=== PATIENT | male | born 1950 | race Caucasian/White ===

== ENCOUNTER 2019-06-06 08:47 | Outpatient (CLI) | payer MEDICARE, OTHER, SELFPAY ==
--- NOTE | 2019-06-06 | ECHO_ITS ---
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 Summary 1. Left ventricular chamber dimension is normal. 2. Left ventricular systolic function is normal, estimated at 60-65%. 3. The left ventricular diastolic function is grade I diastolic dysfunction. 4. E/e' 6 is not elevated. 5. Global longitudinal strain is normal at -17.9%. 6. There is mild aortic valve sclerosis. 7. There is mild aortic valve regurgitation. 8. Right ventricular systolic pressure is not calculated due to an inadequate TR jet. 9. There is trace tricuspid valve regurgitation. 10. Dilated inferior vena cava with >50% collapse upon inspiration consistent with elevated right atrial pressure, 10 mmHg. Left Ventricle E/e' 6 is not elevated. Global longitudinal strain is normal at -17.9%. Left ventricular chamber dimension is normal. Left ventricular systolic function is normal, estimated at 60-65%. The left ventricular diastolic function is grade I diastolic dysfunction. Right Ventricle Right ventricular chamber dimension is normal. Right ventricular systolic function is normal. Left Atria Left atrial chamber dimension is normal. Right Atria Right atrial chamber dimension is normal. Aortic Valve The aortic valve is trileaflet. There is mild aortic valve sclerosis. There is no aortic valve stenosis. There is mild aortic valve regurgitation. Pulmonic Valve There is no pulmonic regurgitation. Mitral Valve There is no mitral valve stenosis. There is no mitral valve regurgitation. Tricuspid Valve Right ventricular systolic pressure is not calculated due to an inadequate TR jet. There is trace tricuspid valve regurgitation. Pericardium/Pleural There is trivial pericardial effusion. Inferior Vena Cava Dilated inferior vena cava with >50% collapse upon inspiration consistent with elevated right atrial pressure, 10 mmHg. Aorta The aortic root size at the sinus of Valsalva is normal. Left Ventricular Outflow Tract Name Value Normal LVOT 2D LVOT Diameter 2.1 cm LVOT Doppler LVOT Peak Gradient 5 mmHg LVOT Mean Gradient 3 mmHg LVOT VTI 28 cm LVOT VTI/AV VTI Ratio 0.9 LVOT Stroke Volume 99 ml LVOT CO 6.3 l/min LVOT CI 2.9 l/min/m2 Pulmonic Valve Name
== END 2019-06-06 08:48 | disposition home or self-care (01) ==
LOC: ANHCARD 08:51
PROVIDERS: PCP Internal Medicine; Visit Provider Internal Medicine
DX: I10 Essential (primary) hypertension (principal); I34.0 Nonrheumatic mitral (valve) insufficiency
CPT/HCPCS: 93306

== ENCOUNTER 2020-09-29 09:43 | Outpatient (CLI) | payer MEDICARE, SELFPAY ==
--- NOTE | ~2020-09-29 | US_ITS ---
EXAMINATION: US carotid duplex BI DATE: 09/29/2020 10:21 INDICATION: Transient ischemic attack. TECHNIQUE: Grayscale, color Doppler, and pulsed Doppler images of the cervical carotid arteries were obtained. The degree of vessel stenosis is placed in one of the following categories: normal, <50%, 5 0-69%, >=70% but less than near-occlusion, near-occlusion, or total occlusion. Note that percent sten osis relative to normal distal artery lumen diameter is indirectly measured from velocity measurement s as described by Abdoulaye, et al. Radiology 2003; 229:340-346. COMPARISON: Ultrasound 10/02/2016 FINDINGS: RIGHT: The right common carotid artery (CCA) peak systolic velocity (PSV) is 102 cm/s. The right internal ca rotid artery (ICA) PSV is 43 cm/s. The right ICA end-diastolic velocity (EDV) is 10 cm/s. The right I CA/CCA PSV ratio is 0.4. Grayscale and color Doppler images yield an estimate of <50% diameter reduct ion from plaque in the ICA. There is antegrade flow in the right vertebral artery. LEFT: The left CCA PSV is 84 cm/s. The left ICA PSV is 70 cm/s. The left ICA EDV is 15 cm/s. The left ICA/C CA PSV ratio is 0.8. Grayscale and color Doppler images yield an estimate of <50% diameter reduction from plaque in the ICA. There is antegrade flow in the left vertebral artery. IMPRESSION: 1. <50% stenosis in the right internal carotid artery. 2. <50% stenosis in the left internal carotid artery. Reviewed, dictated and finalized at location A.
== END 2020-09-29 09:44 | disposition home or self-care (01) ==
PROVIDERS: PCP Internal Medicine; Visit Provider Internal Medicine
DX: G45.9 Transient cerebral ischemic attack, unspecified (principal); I65.23 Occlusion and stenosis of bilateral carotid arteries
CPT/HCPCS: 93880

== ENCOUNTER 2022-11-08 13:42 | Emergency (ER) | payer MEDICARE, SELFPAY ==
--- NOTE | ~2022-11-08 | CT_ITS ---
EXAMINATION: CT abdomen pelvis wo con DATE: 11/08/2022 16:04 INDICATION: Left lower quadrant abdominal pain, dysuria and hematuria TECHNIQUE: Computed tomography (CT) of the abdomen and pelvis was performed without intravenous contr ast. Automated exposure control and iterative reconstruction technique were employed. The dose-length product was 634.31 mGy-cm. COMPARISON: None FINDINGS: Mild atelectasis/scarring at the bilateral lower lobes. No pleural effusion. Heart size is normal. At herosclerotic coronary artery calcific lesion. Aortic valve calcification. Small pericardial effusion . Diffuse hepatic steatosis. Gallbladder, spleen, pancreas and bilateral adrenal glands are normal. T here are parapelvic cysts at the bilateral kidneys. 6 x 3 mm stone in the distal left ureter 1.5 cm f rom the ureterovesicular junction with no hydroureter or hydronephrosis. Additional 1 mm stone at the lower pole of the left kidney. 1.1 cm exophytic soft tissue density lesion at the periphery of the l ower pole the left kidney. There are few scattered colonic diverticula without adjacent inflammatory stranding to suggest diverticular colitis. Small bowel and appendix are normal. Bladder is normal. A few coarse calcifications in the mildly enlarged prostate which measures 4.7 x 4.3 cm. Moderate-sized bilateral fat-containing inguinal hernias. No free intraperitoneal gas or fluid. No pathologically e nlarged abdominal or pelvic lymphadenopathy. Mild lumbar dextrocurvature with moderate spondylosis. IMPRESSION: 1. 6 x 3 mm distal left ureteral stone without hydroureteronephrosis. 2. Indeterminate 1.1 cm soft tissue density exophytic lesion at the lower pole the left kidney which could represent either a complex proteinaceous/hemorrhagic cyst or solid renal cell carcinoma. Recomm end further evaluation with pre and postcontrast MRI or CT. Reviewed, dictated and finalized at location A. IMPRESSION: 1. 6 x 3 mm distal left ureteral stone without hydroureteronephrosis. 2. Indeterminate 1.1 cm soft tissue density exophytic lesion at the lower pole the left kidney which could represent either a complex proteinaceous/hemorrhagi c cyst or solid renal cell carcinoma. Recommend further evaluation with pre and postcontrast MRI or CT.
--- NOTE | ~2022-11-08 | XR_ITS ---
EXAMINATION: XR abdomen/kub 1V DATE: 11/08/2022 16:32 INDICATION: Distal left ureteral stone TECHNIQUE: A supine view of the abdomen on 2 radiographs was obtained. COMPARISON: CT dated 11/08/2022 FINDINGS: The stone at the distal left ureter is clearly visualized amongst a few additional atherosclerotic ca lcifications and phleboliths in the pelvis. Normal bowel gas pattern. Moderate lower lumbar spondylos is. Sclerotic lesion in the right innominate bone which on prior CT appears to demonstrate ring and a rc-like configuration to the sclerosis most consistent with an enchondroma. IMPRESSION: 1. Distal left ureteral stone which has been indicated on the images with an arrow. Reviewed, dictated and finalized at location A. IMPRESSION: 1. Distal left ureteral stone which has been indicated on the images with an ar row.
[2022-11-08 13:46] VITALS: BP 162/83; PULSE 75; RESP 16; TEMP 36.5; O2SAT 98
[2022-11-08 14:06] LABS: Basophils Percent Auto 0.4 % (0.2-1.2); Eosinophils Absolute Auto 0.2 K/mm3 (0-0.3); Eosinophils Percent Auto 2.8 % (0-4.4); Hematocrit 45.1 % (42.0-52.0); Hemoglobin 14.9 g/dL (14.0-18.0); Immature Granulocyte Absolute 0.02 K/mm3 (0.00-0.031); Immature Granulocyte Percent A 0.2 % (0-0.5); Lymphocytes Absolute Auto 1.71 K/mm3 (0.9-3.2); Lymphocytes Percent Auto 20.9 % (18.3-44.2); Mean Corpuscular Hemoglobin 29.7 pg (26-34); Mean Platelet Volume 11.5 fl (7.4-10.4); Monocytes Absolute Auto 0.8 K/mm3 (0.1-0.6); Monocytes Percent Auto 10.1 % (2.6-8.5); Neutrophils Absolute Auto 5.4 K/mm3 (1.3-6.7); Neutrophils Percent Auto 65.6 % (45.5-73.1); Platelet Count Result 239 k/mm3 (150-375); Red Blood Count 5.01 M/mm3 (4.6-6.20); Red Cell Distribution Width 12.7 % (11.5-14.5); White Blood Count 8.2 K/mm3 (4.5-10.0)
[2022-11-08 14:17] LABS: Alanine Aminotransferase 35 U/L (6-50); Albumin Level 4.3 g/dL (3.5-5.1); Alkaline Phosphatase 64 U/L (38-126); Anion Gap 6 mmol/L (8-16); Aspartate Amino Transferase 26 U/L (17-59); Bilirubin,Total 0.8 mg/dL (0.2-1.3); Blood Urea Nitrogen 16 mg/dL (9-20); Calcium 9.4 mg/dL (8.4-10.2); Carbon Dioxide 26 mmol/L (22-30); Chloride 107 mmol/L (98-107); Estimated Glomerular Filt Rate > 60; Glucose 115 mg/dL (65-110); Lipase 147 U/L (23-300); Potassium 3.8 mmol/L (3.4-5.0); Sodium 139 mmol/L (137-145)
[2022-11-08 14:45] LABS: Appearance Urine Clear (Clear); Bacteria Urine None Seen /hpf; Bilirubin Urine Negative (Negative); Blood Urine 3+ (Negative); Color Urine Yellow (Yellow); Glucose Urine UA Negative (Negative); Ketones Urine Negative (Negative); Leukocyte Esterase Ur Negative LEU/UL (Negative); Nitrate Urine Negative (Negative); Protein Urine 1+ mg/dL (Negative); RBC Urine >100 /hpf (0-2); Specific Grav Ur 1.016 (1.001-1.035); Squamous Epithelial Cell Urine None seen /hpf (Few); Urobilinogen Urine 0.2 mg/dL (<2.0); WBC Urine 0-5 /hpf; pH Urine 5.5 (5.0-9.0)
[2022-11-08 14:49] LABS: Add Urine Microscopic? YES
[2022-11-08 15:05] VITALS: BP 152/70; PULSE 64; RESP 19; TEMP 36.8; O2SAT 98
--- NOTE | 2022-11-08 16:03 | ED.ABDPAIN ---
HPI - Abdominal Pain General Chief Complaint: Abdominal Pain Stated Complaint: LLQ pain/vomiting Time Seen by Provider: 11/08/22 15:04 Source: patient Mode of arrival: EMS Limitations: no limitations History of Present Illness HPI narrative: Patient is a 72-year-old male who presents to the ED via EMS with report of left lower quadrant abdominal pain. Patient reports pain began suddenly around 1 PM today. Pain was present in his left lower abdomen. No radiation. He thought he needed to urinate or have a bowel movement at that time. He states he felt the urge to urinate, but was only able to dribble out a small amount. Denies dysuria or hematuria. He was able to have a bowel movement, denies rectal bleeding or melena. Pain became more severe and patient began vomiting at which point EMS was called. Patient states pain has improved somewhat. He denies any persistent nausea. Denies any fevers. Denies history of diverticulitis or kidney stones. Patient has never had pain like this before. He did not take anything for pain prior to arrival. Related Data Home Medications Medication Instructions Recorded Confirmed aspirin 81 mg tablet,delayed 81 mg PO DAILY 02/11/19 06/28/22 release chondroitin sulfate A 250 mg mg PO 02/11/19 06/28/22 capsule montelukast 10 mg tablet 10 mg PO DAILY 02/11/19 06/28/22 multivitamin (Multiple Vitamins 1 tablet PO DAILY 02/11/19 06/28/22 tablet) hydrochlorothiazide 12.5 mg capsule 12.5 mg PO DAILY 06/28/22 06/28/22 tamsulosin 0.4 mg capsule 0.4 mg PO DAILY 06/28/22 06/28/22 Allergies Allergy/AdvReac Type Severity Reaction Status Date / Time No Known Allergies Allergy Unverified 06/28/22 10:29 Review of Systems Review of Systems: CONSTITUTIONAL: Denies fever, chills, or sweats. CARDIOVASCULAR: Denies chest pain. RESPIRATORY: Denies dyspnea. GASTROINTESTINAL: See HPI. GENITOURINARY: See HPI. SKIN: Denies rash or itching. MUSCULOSKELETAL: Denies back pain, joint pain, or myalgia. NEUROLOGIC: Denies headache, numbness, or weakness. All systems reviewed & are unremarkable except as noted in HPI and below PMFSH Surgical History Surgical History History of removal of cyst History of surgery on lower extremity right fib/tib surgery S/P nasal surgery septum surgery Family History Family History Mother Cerebrovascular accident, Onset Age: 95 Family history of chronic obstructive pulmonary disease, Onset Age: 95 Family history of emphysema, Onset Age: 95 Sibling Family history of malignant neoplasm of breast Father Family history of coronary artery disease, Onset Age: 82 Social History Social History Smoking status: Never smoker Alcohol intake: current Exam Narrative: GENERAL: Well appearing, well-nourished, non-toxic, in no acute distress. HEAD: Normocephalic, atraumatic. NECK: Supple. No adenopathy, no masses. RESPIRATORY: Airway patent, respirations nonlabored. Clear to auscultation bilaterally, no rales, rhonchi, wheezing. CARDIOVASCULAR: Regular rate and rhythm without murmurs, rubs, or gallops. Radial pulses 2+ and equal bilaterally. ABDOMINAL: Soft, mild tenderness in left lower quadrant, nondistended, no hepatosplenomegaly. Normoactive BS. No CVA tenderness to percussion. MUSCULOSKELETAL: Moves all extremities. Strength/ROM intact without gross deformities. SKIN: Warm, dry, normal color. No rashes. NEURO: A&O X3. Speech clear. Cranial nerves II-XII grossly intact. Steady gait. No ataxic movements. PSYCHIATRIC: Appropriate mood and affect. Normal interaction. Course Vital Signs Vital signs: Vital Signs Temperature 97.7 F 11/08/22 13:46 Pulse Rate 75 11/08/22 13:46 Respiratory Rate 16 11/08/22 13:46 Blood Pressure 162/83 H
[2022-11-08 17:01] VITALS: BP 154/84; PULSE 83; RESP 15; TEMP 36.6; O2SAT 98
== END 2022-11-08 17:32 | disposition home or self-care (01) ==
PROVIDERS: Emergency Medicine; Emergency Provider Physician Assistant; PCP Internal Medicine
DX: N20.0 Calculus of kidney (principal); N28.9 Disorder of kidney and ureter, unspecified
CPT/HCPCS: 36415; 74018; 74176; 80053; 81001; 83690; 85025; 99284

== ENCOUNTER 2022-11-09 04:14 | Emergency (ER) | payer MEDICARE, SELFPAY ==
[2022-11-09 04:18] VITALS: BP 200/109; PULSE 69; RESP 18; TEMP 35.9; O2SAT 97
--- NOTE | 2022-11-09 04:31 | ED.ABDPAIN ---
HPI - Abdominal Pain General Chief Complaint: Abdominal Pain Stated Complaint: kidney stones/abd pain Time Seen by Provider: 11/09/22 04:19 History of Present Illness HPI narrative: This is a 72-year-old male, who returns to the emergency department complaining of left lower quadrant abdominal pain attributed to kidney stone. Patient states he was seen earlier yesterday, and was diagnosed with a 6.3 mm distal ureteral stone. The patient was discharged with oral pain medications and Zofran. This evening approximately 2 hours ago, he woke with 10/10 left lower quadrant abdominal pain, described as dull and intermittently sharp, radiating to the back and groin. He also complains of nausea and nonbloody vomiting. He states he took a [place] 2 hours ago but has not had relief. He has no other complaints at this time. Related Data Home Medications Medication Instructions Recorded Confirmed aspirin 81 mg tablet,delayed 81 mg PO DAILY 02/11/19 06/28/22 release chondroitin sulfate A 250 mg mg PO 02/11/19 06/28/22 capsule montelukast 10 mg tablet 10 mg PO DAILY 02/11/19 06/28/22 multivitamin (Multiple Vitamins 1 tablet PO DAILY 02/11/19 06/28/22 tablet) hydrochlorothiazide 12.5 mg capsule 12.5 mg PO DAILY 06/28/22 06/28/22 tamsulosin 0.4 mg capsule 0.4 mg PO DAILY 06/28/22 06/28/22 Allergies Allergy/AdvReac Type Severity Reaction Status Date / Time No Known Allergies Allergy Unverified 06/28/22 10:29 Review of Systems Review of Systems: CONSTITUTIONAL: Denies fever, chills, or sweats. CARDIOVASCULAR: Denies chest pain, palpitations, or edema. RESPIRATORY: Denies cough or dyspnea. GASTROINTESTINAL: Lower quadrant abdominal pain radiating to the back and groin, nausea and nonbloody vomiting denies diarrhea. GENITOURINARY: Denies dysuria or hematuria. SKIN: Denies rash or itching. MUSCULOSKELETAL: Denies back pain, joint pain, or myalgia. NEUROLOGIC: Denies headache, numbness, dizziness, or weakness. PSYCHIATRIC: Denies anxiety or depression. [facility] Past Medical History Medical History (Updated 11/09/22 @ 04:38 by Fred Long MD) Kidney stone Surgical History Surgical History History of removal of cyst History of surgery on lower extremity right fib/tib surgery S/P nasal surgery septum surgery Family History Family History Mother Cerebrovascular accident, Onset Age: 95 Family history of chronic obstructive pulmonary disease, Onset Age: 95 Family history of emphysema, Onset Age: 95 Sibling Family history of malignant neoplasm of breast Father Family history of coronary artery disease, Onset Age: 82 Social History Social History Smoking status: Never smoker Alcohol intake: current Exam Narrative: GENERAL: Well-developed, well-nourished, in moderate distress due to pain HEAD: Normocephalic, atraumatic. EYES: PERRLA and EOMI. ENT: Nares clear, no rhinorrhea or epistaxis. Mucous membranes moist. Oropharynx without tonsillar hypertrophy exudate or other lesions. CHEST: Clear to auscultation. No respiratory distress. No wheezes rales or rhonchi HEART: Regular rate and rhythm. No murmur heard. Normal peripheral pulses. ABDOMEN: Soft, mild tenderness to palpation in the left lower quadrant without rebound or guarding, nondistended, normal active bowel sounds. EXTREMITIES: Normal range of motion. No edema. SKIN: Warm, dry, no rash. NEURO: Alert and oriented x3. Moving all 4 limbs purposefully. PSYCH: Normal mood and affect. Course Course Emergency Course: 04:30 - On review of documentation, the patient was seen in this emergency department approximately 12 hours ago. It does not appear the patient was given pain medications while in the emergency department. CT abdomen pelvis demonstra
[2022-11-09] MEDS: ONDANSETRON INJ 4 MG/2 ML VIAL IV PUSH (04:35)
[2022-11-09] MEDS: KETOROLAC 30 MG/ML VIAL (*BKC) IV PUSH (04:35)
[2022-11-09] MEDS: ACETAMINOPHEN 500 MG TABLET 1000 MG PO (05:13)
[2022-11-09] MEDS: MORPHINE SULFATE (*CRX) 4 MG/ML INJ IV PUSH (05:31)
[2022-11-09 06:34] VITALS: BP 168/94; PULSE 71; RESP 16; O2SAT 98
== END 2022-11-09 06:35 | disposition home or self-care (01) ==
PROVIDERS: Emergency Provider Preventive Medicine Aerospace Medicine; PCP Internal Medicine
DX: N20.0 Calculus of kidney (principal); Z87.442 Personal history of urinary calculi; Z79.82 Long term (current) use of aspirin
CPT/HCPCS: 96374; 96375; 99284; A9270; J1885; J2270; J2405

== ENCOUNTER → 2022-11-13 13:38 | Outpatient (CLI) | payer MEDICARE, SELFPAY ==
--- NOTE | ~2022-11-13 | XR_ITS ---
XR abdomen/kub 1V DATE: 11/13/2022 14:25 INDICATION: Left renal neoplasm of uncertain behavior TECHNIQUE: Supine AP views COMPARISON: 11/13/2022 CT abdomen pelvis FINDINGS: Approximately 4-5 mm calcified calculus of distal left ureter. Bilateral vas deferens calcifications, usually associated with diabetes. No bowel obstruction or visceromegaly is evident. The psoas shadows are intact. Moderate sized hiatal hernia. Transitional first sacral vertebra. IMPRESSION: Approximately 4-5 mm calcified calculus of distal left ureter Vas deferens calcifications, usually associated with diabetes Moderate hiatal hernia Reviewed, dictated and finalized at Location A. Reviewed, dictated and finalized at location B.
--- NOTE | ~2022-11-13 | CT_ITS ---
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 Automated exposure control and iterative reconstruction technique were employed. The dose-length product was 1870.13 mGy-cm. COMPARISON: 11/08/2022 FINDINGS: Mild discoid atelectasis in the bilateral lower lobes. No pleural effusion. Heart size is normal. Aor tic valve calcification. Small pericardial effusion. Diffuse hepatic steatosis. Gallbladder, spleen, pancreas and bilateral adrenal glands are normal. Multiple parapelvic cysts at both kidneys. There ar e three separate 11-12 mm nonenhancing cysts at the left kidney, 2 simple fluid attenuation and the t hird exophytic cyst with increased density consistent with a complex proteinaceous/hemorrhagic cyst. Unchanged 6 x 3 mm distal left ureteral stone without hydronephrosis/hydroureter or delayed nephrogra m. There are few scattered colonic diverticula without adjacent from trace stranding. Small bowel and appendix are normal. Bladder is normal. Mild prostatomegaly. Moderate-sized bilateral fat-containing inguinal hernias. No free intraperitoneal gas or fluid. No pathologically enlarged abdominal or pelv ic lymphadenopathy. Mild lumbar dextrocurvature with moderate spondylosis. IMPRESSION: 1. 3 left renal cysts including a complex proteinaceous/hemorrhagic cyst accounting for the lesion of concern on prior CT. 2. Unchanged 6 x 3 mm distal left ureteral stone without hydroureteronephrosis. Reviewed, dictated and finalized at location A. IMPRESSION: 1. 3 left renal cysts including a complex proteinaceous/hemorrhagic cyst accoun ting for the lesion of concern on prior CT. 2. Unchanged 6 x 3 mm distal left ureteral stone without hydroureteronephrosis.
[2022-11-13 14:33] LABS: Estimated Glomerular Filt Rate > 60
== END ==
PROVIDERS: PCP Internal Medicine; Visit Provider Urology
DX: N28.1 Cyst of kidney, acquired (principal); N20.1 Calculus of ureter
CPT/HCPCS: 74018; 74178; Q9967

== ENCOUNTER 2022-11-17 11:09 | Outpatient (CLI) | payer MEDICARE, SELFPAY ==
--- NOTE | 2022-11-17 11:30 | ECG_ITS ---
Measurements Intervals [place] Rate: 82 P: 57 KS: 189 QRS: 1 QRSD: 94 T: 72 QT: 381 QTc: 446 Interpretive Statements SINUS RHYTHM DELAYED PRECORDIAL R/S TRANSITION MINIMAL Q WAVES- INFERIOR LEADS BORDERLINE ST-T WAVE ABNORMALITY- HIGH LATERAL LEADS BASELINE ARTIFACT- I, II, III, AVR, AVL, AVF BORDERLINE ECG NO PREVIOUS ECG AVAILABLE FOR COMPARISON Electronically Signed On 11-17-2022 12:36:18 CDT by Livan Roldan D.O.
== END 2022-11-17 11:10 | disposition home or self-care (01) ==
PROVIDERS: PCP Internal Medicine; Visit Provider Urology
DX: I51.89 Other ill-defined heart diseases (principal); R94.31 Abnormal electrocardiogram [ECG] [EKG]
CPT/HCPCS: 93005

== ENCOUNTER 2022-11-23 02:01 | Day surgery (SDC) | payer MEDICARE, SELFPAY ==
[2022-11-17 09:37] VITALS: BMI 35.0
--- NOTE | 2022-11-17 11:17 | PC.NURSE ---
Report to the Outpatient Waiting Room, entrance under the green pavilion located off [facility], at time __6:00AM on date __11/23/22 . Planned Procedure Time: __7:30AM . Time changes happen often and if your time is changed the preop area will call you the afternoon before. - You and your visitor will be asked to self-screen and do not enter if you have any COVID symptoms. - A mask is optional within the hospital at this time. Patients may have clear liquids (water, carbonated beverages, clear teas, apple juice) until 3 hours prior to surgery with a maximum of 20 ounces. - No food from midnight until time of surgery Take the following medications with a SIP of water the morning of surgery: __HYDROCODONE AND ZOFRAN NEEDED DO NOT STOP ANY OF YOUR OTHER PRESCRIPTION MEDICATIONS PRIOR TO SURGERY ?EXCEPT THE FOLLOWING Medications to discontinue per physician ___HOLD ASPIRIN AND VITAMINS/SUPPLEMENTS 7 DAYS PRE-OP PER DR KENNY PER PATIENT Date to take last dose____11/16/22 Please no make-up, nail kenyan, hairspray, perfume, deodorant, or body powder the day of surgery. No jewelry (including any body piercings) or valuables the day of surgery, leave them at home. Please take a shower or bath the night before, or the morning of, surgery with an antibacterial soap. Wear comfortable, loose fitting clothing. Children are encouraged to wear pajamas. - Jewelry must be removed prior to entering the operating room. Rings and piercings that are not removed may be cut off. - The hospital will not accept responsibility for valuables. - Please leave all valuables, including medications, at home the day of surgery. If you are going home after surgery, a licensed seasonal driver must drive you home. - NO public transportation without another adult if you receive anesthesia. - We recommend that an adult stay with you for 24 hours following discharge. - We also recommend that you do not drive, make important decision, drink alcoholic beverages, or take any drugs that were not prescribed by your health care provider for at least 24 hours after your discharge time. Follow any additional instructions given to you from your surgeon. If you or anyone in your household have experienced Covid symptoms in the past week, please notify your surgeon or the nurse liaison at the phone number below for possible testing. Telephone instructions given to ___PATIENT____and asked if any additional questions and then verbalized understanding. Patient advised to call surgeon office or pre surgery nurse liaison [phone] if any additional questions.
[2022-11-23] VITALS (7 sets, daily range): BP systolic 155–176; BP diastolic 82–104; PULSE 59–68; RESP 13–18; TEMP 36.5–36.6; O2SAT 97–99
--- NOTE | ~2022-11-23 | XR_ITS ---
EXAMINATION: XR fluoroscopy no charge DATE: 11/23/2022 07:59 INDICATION: Left ureteral stone extraction TECHNIQUE: 4 fluoroscopic images of the abdomen and pelvis were obtained during procedure performed b charis Dasilva. Radiologist was not present for the imaging or procedure. The amount of fluoroscopy rocky e used during this procedure was 0.2 minutes. COMPARISON: CT dated 11/13/2022 FINDINGS: Initial format proofreader image redemonstrates the distal left ureteral stone projecting over the left side of th e bladder. Subsequent images demonstrate a wire advanced from a scope projecting over the stone. The stone is no longer visualized on the final image following reported laser fracture and fragment remov al. IMPRESSION: 1. Fluoroscopy utilized during left ureteral stone extraction. Reviewed, dictated and finalized at location A.
[2022-11-23] MEDS: LACTATED RINGERS 1,000 ML 30 ML IV CONT (06:30)
--- NOTE | 2022-11-23 06:51 | WPDHPUPDATE1 ---
History and Physical Update Update Date/Time: 11/23/22 06:51 History and Physical has been reviewed, including an updated exam of the patient. There are NO changes in the patient's condition. Risks, benefits, and alternatives have been discussed and questions answered. Patient agrees to proceed with procedure.
--- NOTE | 2022-11-23 06:54 | WPDANESEPPF ---
Anes - Initial Pre Proc Eval Procedure: Operation Date: 11/23/22 07:30 Proposed Procedures p Cystoscopy, Left Ureteroscopy, Left Retrograde Pyelogram, Left Stone Extraction, Possible Left Stent Placement, Possible Holmium Laser - Keo Dasilva MD Date/Time: 11/23/22 06:54 Surgeon: Keo Dasilva MD Pre Op Diagnosis: left ureteral stone Patient Data Age: 72 Gender: M Height: 1.8 m Weight: 114.7 kg Last Vital Signs Temp 36.6 C 11/23/22 06:13 Pulse 68 11/23/22 06:13 Resp 18 11/23/22 06:13 BP 171/104 H 11/23/22 06:13 Pulse Ox 97 11/23/22 06:13 O2 Del Method Room Air 11/23/22 06:13 Allergies Allergy/AdvReac Type Severity Reaction Status Date / Time No Known Allergies Allergy Verified 11/23/22 06:39 Home Medications Medication Instructions Recorded Confirmed Type aspirin 81 mg tablet,delayed 81 mg PO DAILY 02/11/19 11/23/22 History release montelukast 10 mg tablet 10 mg PO DAILY 02/11/19 11/23/22 History hydrochlorothiazide 12.5 mg capsule 12.5 mg PO QAM PRN Edema 06/28/22 11/23/22 History tamsulosin 0.4 mg capsule 0.4 mg PO HS 06/28/22 11/23/22 History hydrocodone 5 mg-acetaminophen 325 1 tablet PO Q6H PRN pain #15 tabs 11/08/22 11/23/22 Rx mg tablet ondansetron 4 mg disintegrating 4 mg PO Q8H PRN nausea and 11/08/22 11/23/22 Rx tablet vomiting #15 tabs omega 8-fvw-bjh-fish oil 1,000 mg 1 cap PO DAILY 11/17/22 11/23/22 History (120 mg-180 mg) capsule (Fish Oil) Patient hx anesthesia problems: none Family hx anesthesia problems: none Results Review: All pre-operative results and documents have been reviewed as part of the pre-operative evaluation. [facility] Past Medical History Medical History Kidney stone Surgical History Surgical History History of removal of cyst History of surgery on lower extremity right fib/tib surgery S/P nasal surgery septum surgery Family History Family History Mother Cerebrovascular accident, Onset Age: 95 Family history of chronic obstructive pulmonary disease, Onset Age: 95 Family history of emphysema, Onset Age: 95 Sibling Family history of malignant neoplasm of breast Father Family history of coronary artery disease, Onset Age: 82 Social History Social History Smoking status: Never smoker Alcohol intake: current Drinks per week: 2 Substance use: never Living arrangements: with family Additional living arrangements comments: Spiritual care concerns: No Anes - Eval Final PreProcedure Day of Procedure 11/23/22 06:54 Patient weight: obese Heart: regular rate and rhythm Lungs: clear to auscultation Airway: Mallampati scale class II Neurological: alert and oriented Last oral intake: >/= 8 hours ASA classification: III Emergent: no Anesthetic plan: proceed Anesthesia type and monitoring: general LMA and standard monitoring Results Review: All pre-operative results and documents have been reviewed as part of the pre-operative evaluation. Informed Consent: The patient's anesthetic plan and its attendant risks and benefits were discussed with the patient/family/POA. Questions were solicited and answers provided to the satisfaction of the patient/family/POA.
[2022-11-23] MEDS: ceFAZolin 2 GM/D5W 50 ML 2 GM/50 ML BAG IVPB (07:24)
[2022-11-23] MEDS: LIDOCAINE HCL 2% GEL UROJET 10 ML PKG MUCOUS MEM (07:40)
--- NOTE | 2022-11-23 08:08 | W.PM.PROC2 ---
Procedure Note - Detailed Date of Procedure 11/23/22 Pre-op Diagnosis Left ureteral stone Post-op Diagnosis Same Procedure Performed Cystoscopy, left ureteroscopy with laser lithotripsy and stone extraction Surgeon Keo Dasilva MD Anesthesia General Description of Procedure patient is brought to the operative suite was prepped draped in routine sterile fashion while in dorsal lithotomy position after the uneventful induction of a general LMA anesthetic. Cystoscopy is undertaken with a 19 F rigid cystoscope. As notable prostate enlargement with a moderate-sized median lobe. Prostatic urethra measures 3 cm. Bladder is slightly trabeculated without diverticular formation. There was no intravesical foreign body or neoplasm. 0.035 in glidewire was advanced into his left renal pelvis and the distal ureter was dilated with an 8F\10F dilator. Left ureteroscopy was undertaken with a tapered semi-rigid ureteral scope. In 6 mm stone is identified. Using a 200 micron holmium laser I fractured the stone into small pieces, all of which were removed with a 1.9 F disposable stone basket. Because of the ease of this manipulation in absence of apparent ureteral injury I opted not to place ureteral stent. Scope was removed and the patient's bladder was emptied. He was taken to the recovery room good condition. Urine Output 0 Packing No Pathology Yes Complications No immediate complications Condition Stable
== END 2022-11-23 09:12 | disposition home or self-care (01) ==
PROVIDERS: PCP Internal Medicine; Visit Provider Urology
PROC: (CPT 52352; principal; 2022-11-23 07:30)
DX: N20.1 Calculus of ureter (principal); G47.30 Sleep apnea, unspecified; Z79.891 Long term (current) use of opiate analgesic; Z79.82 Long term (current) use of aspirin; E66.9 Obesity, unspecified; Z68.35 Body mass index [BMI] 35.0-35.9, adult
CPT/HCPCS: 52353; 82365; 88300; 99199; C1769; J0690; J1100; J2405; J2704; J3010; J7120; Q9966

== ENCOUNTER 2023-01-12 12:42 | Outpatient (CLI) | payer MEDICARE, SELFPAY ==
[2023-01-12 13:29] LABS: Alanine Aminotransferase 35 U/L (6-50); Albumin Level 4.1 g/dL (3.5-5.1); Alkaline Phosphatase 59 U/L (38-126); Aspartate Amino Transferase 25 U/L (17-59); Bilirubin,Total 0.9 mg/dL (0.2-1.3)
== END 2023-01-12 12:43 | disposition home or self-care (01) ==
LOC: ANHLAB 12:45
PROVIDERS: PCP Internal Medicine; Visit Provider Podiatrist Foot & Ankle Surgery
DX: B35.1 Tinea unguium (principal)
CPT/HCPCS: 36415; 80076

== ENCOUNTER 2023-02-20 08:15 | Outpatient (CLI) | payer MEDICARE, SELFPAY ==
[2023-02-20 10:21] LABS: Alanine Aminotransferase 38 U/L (6-50); Albumin Level 4.2 g/dL (3.5-5.1); Alkaline Phosphatase 54 U/L (38-126); Aspartate Amino Transferase 32 U/L (17-59); Bilirubin,Total 1.2 mg/dL (0.2-1.3)
== END 2023-02-20 08:16 | disposition home or self-care (01) ==
LOC: ANHLAB 08:22
PROVIDERS: PCP Internal Medicine; Visit Provider Podiatrist Foot & Ankle Surgery
DX: B35.1 Tinea unguium (principal)
CPT/HCPCS: 36415; 80076

== ENCOUNTER 2023-03-03 10:21 | Outpatient (CLI) | payer MEDICARE, SELFPAY ==
--- NOTE | ~2023-03-03 | MR_ITS ---
EXAMINATION: MR shoulder LT wo con DATE: 03/03/2023 11:19 INDICATION: M75.42 - Impingement syndrome of left shoulder . TECHNIQUE: Magnetic resonance imaging (MRI) of the left shoulder was performed without intravenous co ntrast. Sequences included axial PD-weighted FS FSE, coronal oblique PD-weighted FS FSE and T2-weight ed FS FSE, and sagittal oblique T2-weighted FS FSE and T1-weighted FSE. COMPARISON: X-ray left shoulder 12/27/2022, images only. FINDINGS: Coracoacromial arch: No significant anterolateral downsloping of the type I acromion. Mild acromial tip enthesopathy. Mini mal inferior AC joint hypertrophy. No subacromial or subcoracoid narrowing. Rotator cuff: 9 mm partial-thickness articular sided tear of the supraspinatus at its insertion, in a background of supraspinatus tendinopathy. Focal articular sided partial tear of the infraspinatus at its insertion . Focal intrasubstance type tear of the infraspinatus in the distal musculotendinous junction. Partia l-thickness tear of the subscapularis. Teres minor is intact. Mild bursal sided fraying. Biceps tendon and glenoid labrum: Medial subluxation of the long head of biceps tendon, with thickening and abnormal signal within the tendon substance. Tear of the posteroinferior quadrant of the glenoid labrum. Fluid: Small volume glenohumeral fluid. Bones/cartilage: No suspicious focal or diffuse marrow signal. Moderate diffuse thinning of glenohumeral cartilage. Mo derate AC joint hypertrophy. IMPRESSION: 9 mm partial-thickness articular sided tear of the supraspinatus in a background of tendinopathy. Focal intrasubstance and articular sided partial tears of the infraspinatus. Partial tear of the subscapularis with medial subluxation and tendinopathy noted in the long head of biceps tendon. Posteroinferior glenoid labrum tear. Moderate AC joint and glenohumeral joint osteoarthritis. Reviewed, dictated and finalized at location K. [facility] PREP IMPRESSION: 9 mm partial-thickness articular sided tear of the supraspinatus in a backgroun d of tendinopathy. Focal intrasubstance and articular sided partial tears of the infraspinatus. Partial tear of the subscapularis with medial subluxation and tendinopathy note d in the long head of biceps tendon. Posteroinferior glenoid labrum tear. Moderate AC joint and glenohumeral joint osteoarthritis.
== END 2023-03-03 10:22 | disposition home or self-care (01) ==
PROVIDERS: PCP Internal Medicine; Visit Provider Physician Assistant Surgical
DX: M75.102 Unspecified rotator cuff tear or rupture of left shoulder, not specified as traumatic (principal); S43.432A Superior glenoid labrum lesion of left shoulder, initial encounter; M19.012 Primary osteoarthritis, left shoulder; M75.42 Impingement syndrome of left shoulder; X58.XXXA Exposure to other specified factors, initial encounter
CPT/HCPCS: 73221

== ENCOUNTER 2023-04-06 07:44 | Outpatient (CLI) | payer MEDICARE, SELFPAY ==
[2023-04-06 08:45] LABS: Basophils Percent Auto 0.6 % (0.2-1.2); Eosinophils Absolute Auto 0.2 K/mm3 (0-0.3); Eosinophils Percent Auto 3.1 % (0-4.4); Hematocrit 46.8 % (42.0-52.0); Hemoglobin 14.9 g/dL (14.0-18.0); Immature Granulocyte Absolute 0.04 K/mm3 (0.00-0.031); Immature Granulocyte Percent A 0.6 % (0-0.5); Lymphocytes Absolute Auto 1.62 K/mm3 (0.9-3.2); Lymphocytes Percent Auto 23.9 % (18.3-44.2); Mean Corpuscular HGB Conc 31.8 g/dl (32-36); Mean Corpuscular Volume 91.2 fl (80-100); Mean Platelet Volume 11.2 fl (7.4-10.4); Monocytes Absolute Auto 0.6 K/mm3 (0.1-0.6); Neutrophils Absolute Auto 4.3 K/mm3 (1.3-6.7); Neutrophils Percent Auto 62.8 % (45.5-73.1); Platelet Count Result 204 k/mm3 (150-375); Red Blood Count 5.13 M/mm3 (4.6-6.20); Red Cell Distribution Width 13.1 % (11.5-14.5); White Blood Count 6.8 K/mm3 (4.5-10.0)
[2023-04-06 09:19] LABS: Alanine Aminotransferase 34 U/L (6-50); Albumin Level 3.8 g/dL (3.5-5.1); Alkaline Phosphatase 62 U/L (38-126); Anion Gap 7 mmol/L (8-16); Aspartate Amino Transferase 23 U/L (17-59); Bilirubin,Total 0.6 mg/dL (0.2-1.3); Blood Urea Nitrogen 19 mg/dL (9-20); Carbon Dioxide 27 mmol/L (22-30); Chloride 107 mmol/L (98-107); Cholesterol 190 mg/dL (0-200); Estimated Glomerular Filt Rate > 60; Glucose 108 mg/dL (65-110); HDL Direct 50 mg/dL; Potassium 4.4 mmol/L (3.4-5.0); Sodium 141 mmol/L (137-145); Triglycerides 122 mg/dL (<150)
[2023-04-06 09:30] LABS: LDL Cholesterol Direct 101 mg/dL
[2023-04-06 09:46] LABS: Prostate Specific Antigen 2.7 ng/mL (< OR = 4.0)
[2023-04-11 12:56] LABS: Testosterone Free 31.1 pg/mL (30.0-135.0); Testosterone Total 181 ng/dL (250-1100)
== END 2023-04-06 07:45 | disposition home or self-care (01) ==
PROVIDERS: PCP Internal Medicine
DX: Z12.5 Encounter for screening for malignant neoplasm of prostate (principal); N40.0 Benign prostatic hyperplasia without lower urinary tract symptoms; R53.83 Other fatigue
CPT/HCPCS: 36415; 80053; 80061; 84153; 84402; 84403; 84443; 85025; G0103

== ENCOUNTER 2023-05-22 09:17 | Outpatient (CLI) | payer MEDICARE, SELFPAY ==
--- NOTE | ~2023-05-22 | XR_ITS ---
EXAMINATION: XR abdomen/kub 1V INDICATION: Left ureteral stone TECHNIQUE: Supine views of the abdomen were obtained on 2 radiographs. COMPARISON: 11/13/2022 FINDINGS: The previously described left distal ureteral stone is no longer evident. There are phlebol iths of the pelvis. No urolithiasis is identified. IMPRESSION: 1. No urolithiasis identified. Reviewed, dictated and finalized at location L. [employer]
== END 2023-05-22 09:18 | disposition home or self-care (01) ==
LOC: ANHIMG 09:20
PROVIDERS: PCP Internal Medicine; Visit Provider Urology
DX: N20.1 Calculus of ureter (principal)
CPT/HCPCS: 74018

== ENCOUNTER 2023-09-13 12:48 | Outpatient (CLI) | payer MEDICARE, SELFPAY | END 2023-09-13 12:49 | disposition home or self-care (01) | PROVIDERS: PCP Internal Medicine; Visit Provider Otolaryngology | DX: H90.3 Sensorineural hearing loss, bilateral (principal) | CPT/HCPCS: 92557; 92567 ==

== ENCOUNTER 2024-01-16 07:59 | Outpatient (CLI) | payer MEDICARE, SELFPAY ==
--- NOTE | 2024-02-06 11:06 | WPDSLEEPSTUD ---
Sleep Study Date of Study: 01/16/24 Ordering Provider: Justin Zafar MD Interpreting Physician: Adele Argueta MD Sleep Study Type: CPAP Titration Height: 1.8 m Weight: 113.398 kg Body Mass Index: 34.8 Neck Circumference (inches): 20 [place]: 4 Reason for Sleep Study Obstructive sleep apnea for 30 years; his PAP machine needs replacement due to malfunction. * 12/18/2023 Overnight oximetry using auto-PAP 9 to 15 cm on room air showed recording time 7 hours 44 minutes, minimum desaturation to 74% and 27 minutes below 88% saturation. His oxygen desaturation index was 30. Awake saturation was 94%. Basal saturation during the night was 90.9%. He presents now for a repeat CPAP titration and possible addition of oxygen. * 03/20/2017 CPAP re-titration ([facility]); BMI 31. Severe obstructive sleep apnea based on polysomnogram at an outside hospital. He had adequate titration to CPAP 9 cm on this retitration. 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 He has worn PAP for over 30 years. He has nasal allergies, has used Jeannine and Flonase. He takes allergy shots. He has daily sinus drainage. He had his septum straight and in 1975, and had a tonsillectomy. Other medical comorbidities include hypertension. He occasionally has difficulty sleeping when he has a cold. He does not wake up gasping for breath at night. He does not sweat excessively at night or notice his heart pounding or beating irregularly at night. He occasionally falls asleep during the day, rarely falls asleep involuntarily, never falls asleep while driving. He does not have loss of muscle tone with strong emotion. He does not have daytime problems due to excessive sleepiness. He does not feel paralyzed on waking or falling asleep. He denies having vivid dreamlike scenes upon awakening or falling asleep. He does not feel afraid to go to sleep. He occasionally has nightmares. He occasionally remembers his dreams. He does not have racing thoughts. He rarely feels sad, depressed, or anxious. He does not have muscular tension. He rarely notices parts of his body jerking. He does not kick at night nor does he have crawling or aching feelings in his legs. He has no leg pain during the night. He does not have morning jaw pain. He does not grind his teeth during sleep. He rarely is bothered by pain during the day, never awakened by pain during the night. He occasionally wakes up feeling stiff in the morning. He does not wake up with sore achy muscles. On occasion he wakes up with pain in the neck and spine. He has fatigue and memory problems. Normal bedtime is 10:00 p.m. falling asleep within 15 minutes. He typically wakes once at night to go to the bathroom. He is able to return to sleep within 10-15 minutes. His normal wake time is 6:00 a.m.. His weekend schedule is almost identical. He wakes up at 6:30 a.m. on weekends. He estimates getting between 7 and 8 hours of sleep at night. He reports a 10 lb weight gain in the last year. Habits: Tobacco: never smoker. Alcohol: 2 drinks per week. [facility] Past Medical History Medical History (Updated 02/06/24 @ 11:33 by Adele Argueta MD) Biceps tendinosis of left shoulder Hypertension Kidney stone Nasal congestion with rhinorrhea DANITZA (obstructive sleep apnea) Partial tear of left rotator cuff Surgical History Surgical History (Updated 02/06/24 @ 11:31 by Adele Argueta MD) History of removal of cyst History of surgery on lower extremity right fib/tib surgery S/P nasal surgery septum surgery Status post tonsillectomy Family History Family History Mother Cerebrovascular accident, Onset Age: 95 Family history of chronic obstructive pulmonary disease, Onset Age: 95 Family history of emphysema, Onset Age: 95 Sibling Family history of malignant neoplasm of breast Father Family history of coronary artery disease, Onset Age: 82 Social History Social History Smoking status: Never smoker Alcohol intake: current Drinks per week: 2 Substance use: never Lack of Transportation: No Lack of Food: Never True Current Housing: I Have Housing Concerned About Future Housing: No Difficulty Paying Gas/Electric Bills: No Difficulty Paying for Meds: No Currently Unemployed: No Education: Bachelor's Degree Difficulty w/ Childcare or Family Care: No Living arrangements: with family Additional living arrangements comments: Spiritual care concerns: No Medications Home Medications Medication Instructions Recorded Confirmed Type aspirin 81 mg tablet,delayed 81 mg PO DAILY 02/11/19 12/05/23 History release montelukast 10 mg tablet 10 mg PO DAILY 02/11/19 12/05/23 History tamsulosin 0.4 mg capsule 0.4 mg PO HS 06/28/22 12/05/23 History omega 5-xmo-jps-fish oil 1,000 mg 1 cap PO DAILY 11/17/22 12/05/23 History (120 mg-180 mg) capsule (Fish Oil) buspirone 7.5 mg tablet 7.5 mg PO BID 09/03/23 12/05/23 History fluticasone propionate 50 2 - 3 spray intranasal BID #16 mL 09/03/23 12/05/23 Rx mcg/actuation nasal spray,suspension (Flonase Allergy Relief) hydrochlorothiazide 12.5 mg capsule 25 mg PO QAM PRN Edema 09/03/23 12/05/23 History Sleep Procedure A full CPAP polysomnogram using the [employer] multi-channel system recorded the standard physiologic parameters including EEG, EOG, submentalis EMG, anterior tibialis EMG, EKG, body position, nasal and oral airflow using nasal pressure sensor and thermistor. Respiratory parameters of chest and abdominal movements were recorded with Respiratory Inductance Plethysmography belts. Oxygen saturation was recorded by pulse oximetry. Video monitoring was also performed. Sleep stages, periodic limb movements, and EEG arousals were scored in 30 second epochs according to the criteria of the AASM Scoring Manual. The Apnea-Hypopnea Index was calculated using CMS guidelines for definition of hypopnea while scoring respiratory events. The patient was started on CPAP using a large ResMed AirTouch F20 fullface mask with heated humidity, patient was acclimated on CPAP 7 cm and proceed with titration. He was titrated on pressure CPAP 7, 9, 11, 13, 14, and 16 cm water pressure. At 16 cm, the patient spent 57.5 minutes in bed, 17 minutes awake, 28.5 minutes in non-REM and 12 minutes in REM. The sleep efficiency was 70.4%. The residual apnea-hypopnea index was 1.5. The lowest saturation was 91%. The patient had supine REM at this pressure. This is the optimal pressure.. Sleep Architecture The total recording time was 477.8 minutes. The total sleep time was 344.0 minutes. Sleep latency was 11.4 minutes. REM latency was 213.0 minutes. Sleep efficiency was 72.0%. The patient had 63 awakenings for an awakening index of 11.0. Wake after Sleep Onset time was 122.5 minutes. The patient spent 80.5 minutes, 23.4% of total sleep time in Stage N1. The patient spent 192.0 minutes, 55.8% in Stage N2. The patient spent 17.5 minutes, 5.1% in Stage N3. The patient spent 54.0 minutes, 15.7% in Stage REM. Respiratory Analysis The patient had 27 hypopneas, 2 obstructive apneas, no mixed apneas, and 3 central apneas for an overall Apnea Hypopnea Index of 5.6 events per hour. The REM Apnea Hypopnea Index was 3.3. The NREM Apnea Hypopnea Index was 6.0. The patient had a Central Apnea Hypopnea Index of 0.5. There were 86 Respiratory Effort Related Arousals resulting in a RERA index of 15.0 events per hour. The Respiratory Disturbance Index is 20.6 events per hour. There was no evidence of Larry-Barker Respirations. Arousals There were 230 total arousals for an arousal index of 40.1. There were 58 spontaneous arousals for an index of 10.1. There were 89 arousals due to respiratory events for an index of 15.5. There were 21 arousals due to periodic limb movements for an index of 3.7. There were 63 arousals due to isolated limb movements for an index of 11.0. Periodic Limb Movements The patient had 72 isolated limb movements with an index of 12.6. The patient had 22 periodic limb movements with index of 3.8. Patient had a total of 94 limb movements with a total limb movement index of 16.4. Oximetry Data The patient had an average oxygen saturation of 92.4% in sleep with a minimum oxygen saturation of 85% and a maximum oxygen saturation of 97%. The patient had 30 oxygen desaturations that were 4% or greater resulting in an Oxygen Desaturation Index of 5.2. The patient spent 1.8 minutes, 0.4% of total sleep time with an oxygen saturation below 88%. Snoring Profile Snoring was moderate and intermittent, resolved at the optimal pressure. Cardiac Profile The EKG showed normal sinus rhythm. The patient had an average pulse rate of 65.2 bpm with a minimum pulse rate of 50 bpm and a maximum pulse rate of 81 bpm. No arrhythmias noted. EEG Profile EEG was unremarkable, no evidence of seizures. Assessment and Plan Assessment and Plan (1) DANITZA (obstructive sleep apnea): Code(s): G47.33 - Obstructive sleep apnea (adult) (pediatric) Status: Acute Assessment and Plan: This full night CPAP titration January 16, 2024 shows an optimal pressure of CPAP 16 cm using a large ResMed AirTouch F20 mask with heated humidity. He had supine REM at this setting with the residual apnea-hypopnea index of 1.5. The patient should be prescribed this ResMed equipment as well as tubing, filters and reservoir. This should be used with all episodes of sleep. Compliance should be reviewed within 31-90 days of starting therapy for usage greater than 4 hours per night greater than 70% of the nights. The patient should be asked about symptoms such as excessive daytime sleepiness, quality of sleep, decreased nocturia, increased mental functioning such as memory, mood, and concentration. BMI is 34. Weight management is advised. Clinical data suggests that weight loss of 10% can reduce the severity of respiratory events and snoring and improve AHI by as much as 25%. Data The data obtained during this sleep study is adequate for interpretation. Certification This sleep study has been reviewed by a board certified sleep medicine physician.
[2024-02-06 11:16] VITALS: BMI 34.8
== END 2024-01-17 06:26 | disposition home or self-care (01) ==
LOC: ANHCSM 08:00
PROVIDERS: PCP Internal Medicine; Visit Provider Internal Medicine Pulmonary Disease
DX: G47.33 Obstructive sleep apnea (adult) (pediatric) (principal); G47.34 Idiopathic sleep related nonobstructive alveolar hypoventilation
CPT/HCPCS: 95811

== ENCOUNTER 2024-04-29 06:39 | Outpatient (CLI) | payer MEDICARE, SELFPAY ==
--- OUTSIDE RECORDS SUMMARY | 2024-04-29 06:43 | XMS_ITS | Encounter Summary ---
Author Organization [facility] Address [address] [facility] [place] [address] Care Team Providers Care Fitter / Welder Name Role Phone Unavailable Primary Care Provider Unavailabl e Encounter Details Date Type Department Care Team (Late st Contact Info) Description 07/18/2017 Lab Requisition [facility] DermPath Lab [address] [facility] [facility] [place] [id number] Adarsh Bryant MD [address] [place] [address] Social History Tobacco Use Types Packs/Day Years Used Date Smoking Tobacco: Never Assessed Sex and Gender Information Value Date Recorded Sex Assigned at Not on file Gender Identity Not on file Sexual Orientation Not on file documented as of this encounter Plan of Treatment Not on file documented as of this encounter Procedures Procedure Name Priority Date/Time Associated Diagnosis Comments DERMATOPATHOLOGY Routine 07/17/2017 12:0 0 AM CDT documented in this encounter Results * DERMATOPATHOLOGY (07/17/2017 12:00 AM CDT) Case Report Dermatopathology Report Case: [id number] Authorizing Provider: Adarsh Bryant MD Collected: 07/17/2017 12:00 AM Pathologist: Nikita Juarez MD Received: 07/18/2017 12:44 PM Specimen: Skin, left base of neck 8 3:46 PM CDT DERMATOPATHOLOGY LABORATORY Final Diagnosis Specimen A. SKIN, left base of neck: DERMAL FIBROSIS (L90.5) (see microscopic description) 8 3:46 PM CDT DERMATOPATHOLOGY LABORATORY Clinical History R/O dys nevus. BCC. Check margins. 3:46 PM CDT DERMATOPATHOLOGY LABORATORY Gross Description Specimen A: Received is one formalin filled container labeled with the patient's name and designated left base of neck. The specimen consists of a shave biopsy measuring [id number], the margin is inked green. Jar 0. 3:46 PM CDT DERMATOPATHOLOGY LABORATORY Microscopic Description Specimen A. SKIN, left base of neck: The epidermis is unremarkable. There is focal dermal fibrosis. Tumor or a pigmented lesion is not present in the sections examined. Additional deeper sections were obtained and reviewed. 3:46 PM CDT DERMATOPATHOLOGY LABORATORY Disclaimer An external and internal positive and negative controls are appropriate for the histochemical, immunohistochemical and immunofluorescence stain(s) in this case (if any), except where stated explicitly. The performance characteristics of the stain(s) cited in this report were developed and its performance characteristic determined by the Dermatopathology Laboratory at [facility]. These tests need not be, and therefore are not, approved by the [place] Food and Drug Administration. The tests are used for clinical purposes. Billing Codes Specimen Charges Stain Charges 84028 1 3:46 PM CDT DERMATOPATHOLOGY LABORATORY Embedded Images 3:46 PM CDT DERMATOPATHOLOGY LABORATORY Pathology/Cytolog y TISSUE SPECIMEN FROM SKIN / Unknown 07/17/2017 07/18/2017 12:44 PM CDT Adarsh Bryant MD LAB - PATHOLOGY/CYTO LOGY ORDERABLES DERMATOPATHOLOGY LABORATORY [facility] - Department of Dermatology [address] [place] [address] [address] Lab [address] [place], [place] [id number] [place] [address] documented in this encounter Visit Diagnoses Not on filedocumented in this encounter
--- OUTSIDE RECORDS SUMMARY | 2024-04-29 06:43 | XMS_ITS ---
Author Organization [facility] Address [address] [place] [address] Care Team Providers Care Parts Salesman Name Role Phone Forrest Castañeda Primary Care Provider Silva Thomas Unavailable [phone] REASON FOR VISIT SCIT - Traditional Schedule Allergy immunotherapy Medications Medication SIG (Take, Route, Frequency, Duration) Notes Start Date End Date Status Song Allergy *Please review and pick correct strength-formula tion from brands4friends options. If intended option is not shown, discontinue and re-order from Quick Search* Active Aspirin *Please review and pick correct strength-formula tion from brands4friends options. If intended option is not shown, discontinue and re-order from Quick Search* Active Montelukast Sodium 10 MG 1 tab(s) orally once a day for 30 day(s) Active EpiPen 2-Francisco 0.3 MG/0.3ML as directed intramuscularly once for 1 days 04/02/2023 Active SIT (TRADITIONAL) VARIABLE PER SCHEDULE SC PER SCHEDULE for TO BE DETERMINED *Please review for potential replacement for e-prescription and drug interaction check* 06/06/2023 Active hydroCHLOROthiazide 25 MG 1 tab(s) orally once a day Active Testosterone ENANTHATE 50 MG/0.5 ML DIRECTED SUBCUTANEOUSLY ONCE A WEEK *Please review and pick correct strength-formula tion from brands4friends options. If intended option is not shown, discontinue and re-order from Quick Search* Active Tamsulosin HCl 0.4 MG 1 cap(s) orally on ce a day Active AZELASTINE NASAL 137 mcg/inh 2 spray(s) intranasally 2 times a day for 30 day(s) 06/06/2023 Active Azelastine HCl 137 MCG/SPRAY 2 spray(s) intranasally 2 times a day for 30 day(s) 06/06/2023 Active SONG Active ASPIRIN Active HYDROCHLOROTHIAZIDE 25 mg 1 tab(s) orally once a day Active MONTELUKAST 10 mg 1 tab(s) orally once a day for 30 day(s) Active EPIPEN 2-FRANCISCO 0.3 mg as directed intramuscularly once for 1 days 04/02/2023 Active AZELASTINE NASAL 137 mcg/inh 2 spray(s) intranasally 2 times a day for 30 day(s) 06/06/2023 Active TESTOSTERONE enanthate 50 mg/0.5 mL as directed subcutaneously once a week Active TAMSULOSIN 0.4 mg 1 cap(s) orally once a day Active SIT (TRADITIONAL) variable per schedule SC per schedule for to be determined Active Encounters Encounter Location Date Provider Diagnosis [facility] [email or web address] [address] 04/09/2024 Silva Lafleur Allergic rhinitis du e to pollen J30.1 ; Allergic rhinitis due to animal (cat) (dog) hair and dander J30.81 ; Other allergic rhinitis J30.89 and Other chronic allergic conjunctivitis H10.45 Assessments Encounter Date Diagnosis (ICD Code) Assessment Notes Treatment Notes Treatment Clinical Notes Section Notes 04/09/2024 Allergic rhinitis due to pollen (ICD-10 - J30.1) 04/09/2024 Allergic rhinitis due to animal (cat) (dog) hair and dander (ICD-10 - J30.81) 04/09/2024 Other allergic rhinitis (ICD-10 - J30.89) 04/09/2024 Other chronic allergic conjunctivitis (ICD-10 - H10.45) Plan Of Treatment Medication Medication Name Sig Start Date Stop Date Notes SIT (TRADITIONAL) variable per schedule SC per schedule for to be determined Next Appt Details Follow Up: 1 Week, Reason: Progress Notes * Zaire WIRGHTDOB:1950 (73 yo M)Acc No.[id number]:04/09/2024 SCIT-Aeroallergen Patient: Zaire RHODES Provider: Miguel Lafleur MD :1950 A ge:73 Y S ex:Male Date:04/09/2024 Address:[address] [place], [place] [address], [id number] Pcp:Forrest Castañeda Subjective: * Chief Complaints: * S CIT - Traditional Schedule Allergy immunotherapy * HPI: * Introduction: The patient is here for scheduled immunotherapy. Please see the attached specialty form regarding the specifics of the administration of these vaccines. As per our protocol, they must undergo a screening health questionnaire (medication changes, reaction(s) to last immunotherapy dose(s), current health status, ACT (if appropriate), self-injectable epinephrine on patient(?) and peak flow (if appropriate)). Also, the patient must wait in our office for 30 minutes after receiving the vaccine(s). Furthermore, every patient must have an epinephrine pen (self-injectable) with them at the time of administration--and carry if for the following 1.5 hours after they leave our office. The patient must also have taken their antihistamine the day of the injection, preferably 2 hours prior. The consent form for SCIT (subcutaneous immunotherapy) is on file. * Medical History: * Surgical History: * Hospitalization/Major Diagno stic Procedure: * Medications: T akingSIT (TRADITIONAL) variable see record per schedule SC per schedule AZELASTINE NASAL 137 mcg/inh spray 2 spray(s) intranasally 2 times a day TESTOSTERONE enanthate 50 mg/0.5 mL solution as directed subcutaneously once a week TAMSULOSIN 0.4 mg capsule 1 cap(s) orally once a day HYDROCHLOROTHIAZIDE 25 mg tablet 1 tab(s) orally once a day SONG ASPIRIN MONTELUKAST 10 mg tablet 1 tab(s) orally once a day EPIPEN 2-FRANCISCO 0.3 mg kit as directed intramuscularly once AZELASTINE NASAL 137 mcg/inh spray 2 spray(s) intranasally 2 times a day Azelastine HCl 137 MCG/SPRAY Solution 2 spray(s) intranasally 2 times a day Testosterone ENANTHATE 50 MG/0.5 ML SOLUTION DIRECTED SUBCUTANEOUSLY ONCE A WEEK , Notes to Pharmacist: *Please review and pick correct strength-formulation from Virtual BridgesspFontacto options. If intended option is not shown, discontinue and re-order from Quick Search*Tamsulosin HCl 0.4 MG Capsule 1 cap(s) orally once a day hydroCHLOROthiazide 25 MG Tablet 1 tab(s) orally once a day Song Allergy , Notes to Pharmacist: *Please review and pick correct strength- formulation from Virtual Bridg[employer]pan options. If intended option is not shown, discontinue and re-order from Quick Search*Aspirin , Notes to Pharmacist: *Please review and pick correct strength-formulation from Virtual [employer] options. If intended option is not shown, discontinue and re-order from Quick Search*Montelukast Sodium 10 MG Tablet 1 tab(s) orally once a day EpiPen 2-Francisco 0.3 MG/0.3ML Solution Auto-injector as directed intramuscularly once SIT (TRADITIONAL) VARIABLE SEE RECORD PER SCHEDULE SC PER SCHEDULE , Notes to Pharmacist: *Please review for potential replacement for e-prescription and drug interaction check*Taking SIT (TRADITIONAL) variable see record per schedule SC per schedule Taking AZELASTINE NASAL 137 mcg/inh spray 2 spray(s) intranasally 2 times a day Taking TESTOSTERONE enanthate 50 mg/0.5 mL solution as directed subcutaneously once a week Taking TAMSULOSIN 0.4 mg capsule 1 cap(s) orally once a day Taking HYDROCHLOROTHIAZIDE 25 mg tablet 1 tab(s) orally once a day Taking SONG Taking ASPIRIN Taking MONTELUKAST 10 mg tablet 1 tab(s) orally once a day Taking EPIPEN 2-FRANCISCO 0.3 mg kit as directed intramuscularly once Taking AZELASTINE NASAL 137 mcg/inh spray 2 spray(s) intranasally 2 times a day Taking Azelastine HCl 137 MCG/SPRAY Solution 2 spray(s) intranasally 2 times a day Taking Testosterone ENANTHATE 50 MG/0.5 ML SOLUTION DIRECTED SUBCUTANEOUSLY ONCE A WEEK , Notes to Pharmacist: *Please review and pick correct strength-formulation from Virtual Bridg[employer]pan options. If intended option is not shown, discontinue and re-order from Quick Search*Taking Tamsulosin HCl 0.4 MG Capsule 1 cap(s) orally once a day Taking hydroCHLOROthiazide 25 MG Tablet 1 tab(s) orally once a day Taking Song Allergy , Notes to Pharmacist: *Please review and pick correct strength-formulation from Virtual Bridg[employer]pan options. If intended option is not shown, discontinue and re-order from Quick Search*Taking Aspirin , Notes to Pharmacist: *Please review and pick correct strength-formulation from Virtual Bridg[employer]pan options. If intended option is not shown, discontinue and re-order from Quick Search*Taking Montelukast Sodium 10 MG Tablet 1 tab(s) orally once a day Taking EpiPen 2-Francisco 0.3 MG/0.3ML Solution Auto-injector as directed intramuscularly once Taking SIT (TRADITIONAL) VARIABLE SEE RECORD PER SCHEDULE SC PER SCHEDULE , Notes to Pharmacist: *Please review for potential replacement for e-prescription and drug interaction check* Objective: * Vitals: Assessment: * Assessment: 1. A llergic rhinitis due to pollen - J30.1 (Primary) 2 . A llergic rhinitis due to animal (cat) (dog) hair and dander - J30.81 3 . O ther allergic rhinitis - J30.89 4 . O ther chronic allergic conjunctivitis - H10.45 Plan: * Treatment: * Procedure Codes: 9 5117 IMMUNOTHERAPY INJECTIONS * Follow Up: 1 Week * Billing Information: * Visit Code: * Procedure Codes: 39338 IMMUNOTHERAPY INJECTIONS. * RETE PAVING MACHINE OPERATOR Sign off status: Completed true * Provider: Miguel Lafleur MD Date: 0 04/09/2024 Generated for Marcos calix/Kleber/Jerichoitting on: 0 04/29/2024 06:43 AM CONCRETE PAVING MACHINE OPERATOR History and Physical Notes * HPI (History of Present Illness) Category Sub-Category Detail Notes Category Not es *Introduction The patient is here for scheduled immunotherapy. Please see the attached specialty form regarding the specifics of the administration of these vaccines. As per our protocol, they must undergo a screening health questionnaire (medication changes, reaction(s) to last immunotherapy dose(s), current health status, ACT (if appropriate), self-injectable epinephrine on patient(?) and peak flow (if appropriate)). Also, the patient must wait in our office for 30 minutes after receiving the vaccine(s). Furthermore, every patient must have an epinephrine pen (self-injectable) with them at the time of administration--and carry if for the following 1.5 hours after they leave our office. The patient must also have taken their antihistamine the day of the injection, preferably 2 hours prior. The consent form for SCIT (subcutaneous immunotherapy) is on file.
--- OUTSIDE RECORDS SUMMARY | 2024-04-29 06:43 | XMS_ITS | Referral Summary ---
Author Organization [facility] Address [address] [place] [address] Care Team Providers Care Sanipractic Physician Name Role Phone Unavailable Primary Care Provider Unavailabl e Source Comments [facility],non-owned Affiliates and Associated Physician Practices is amultiple site organization consisting of ambulatory clinics and hospital sitesin [place], [place], [place] and [place]. This disclosure is being madepursuant to the Care Everywhere program and may not contain all information available regarding this patient. Last updated 17.[facility] Encounters Date Type Department Care Team Description 04/23/2024 Lab Requisition [facility] - DermPath Lab [address] [facility] [place] [address] Yuliana Wall MD from Last 3 Months Social History Tobacco Use Types Packs/Day Years Used Date Smoking Tobacco: Never Assessed Sex and Gender Information Value Date Recorded Sex Assigned at Not on file Gender Identity Not on file Sexual Orientation Not on file Plan of Treatment Not on file Procedures Procedure Name Priority Date/Time Associated Diagnosis Comments DERMATOPATHOLOGY Routine 04/23/2024 11:1 3 AM INTERVENTION ANALYST from Last 3 Months Results * DERMATOPATHOLOGY (04/23/2024 11:13 AM INTERVENTION ANALYST) Case Report Dermatopathology Report Case: [id number] Authorizing Provider: Yuliana Wall MD Collected: 04/23/2024 11:13 AM Ordering Location: [facility] Physician [facility] - Received: 04/25/2024 06:08 AM DermPath Lab Pathologist: Laurel Lizarraga MD Specimens: A) - Skin, left cheek B) - Skin, upper back C) - Skin, left thigh 2:24 PM INTERVENTION ANALYST DERMATOPATHOLOGY LABORATORY Final Diagnosis Specimen A. SKIN, left cheek: ACTINIC KERATOSIS (L57.0) Specimen B. SKIN, upper back: LICHEN PLANUS-LIKE KERATOSIS (BENIGN LICHENOID KERATOSIS) (L82.1) Specimen C. SKIN, left thigh: SQUAMOUS CELL CARCINOMA, WELL DIFFERENTIATED (C44.729) 2:24 PM [facility] DERMATOPATHOLOGY LABORATORY Clinical History A: AK vs SCC B: R/O ISK C: R/O SCC 2:24 PM [facility] DERMATOPATHOLOGY LABORATORY Gross Description Specimen A: Received is one formalin filled container labeled with the patient's name and designated left cheek. The specimen consists of a shave biopsy measuring 5x5x1 mm. Jar 0. Specimen B: Received is one formalin filled container labeled with the patient's name and designated upper back. The specimen consists of a shave biopsy measuring 8x7x1 mm. Jar 0. Specimen C: Received is one formalin filled container labeled with the patient's name and designated left thigh. The specimen consists of a shave biopsy measuring 10x9x4 mm. Jar 0. 2:24 PM [facility] DERMATOPATHOLOGY LABORATORY Microscopic Description Specimen A. SKIN, left cheek: There is focal parakeratosis. The lower half of the epidermis shows disorderly maturation of keratinocytes with nuclear pleomorphism. Specimen B. SKIN, upper back: The epidermis is mildly acanthotic. There is a lichenoid infiltrate with vacuolar changes of basilar keratinocytes and scattered necrotic keratinocytes. Specimen C. SKIN, left thigh: Arising in the epidermis and extending into the dermis there are irregularly shaped aggregates of keratinocytes showing evidence of premature cornification. 2:24 PM [facility] DERMATOPATHOLOGY LABORATORY Disclaimer An external and internal positive and negative controls are appropriate for the histochemical, immunohistochemical and immunofluorescence stain(s) in this case (if any), except where stated explicitly. The performance characteristics of the stain(s) cited in this report were developed and its performance characteristic determined by the Dermatopathology Laboratory at [facility], directed by Dr. Robby Juarez. These tests need not be, and therefore are not, approved by the [place] Food and Drug Administration. The tests are used for clinical purposes. Billing Codes Specimen Charges Stain Charges 36964 84416 01361 1 1 1 5 2:24 PM INTERVENTION ANALYST DERMATOPATHOLOGY LABORATORY Embedded Images 5 2:24 PM INTERVENTION ANALYST DERMATOPATHOLOGY LABORATORY Pathology/Cytology TISSUE SPECIMEN FROM SKIN / Unknown 04/23/2024 11:13 AM INTERVENTION ANALYST 04/25/2024 6:08 AM INTERVENTION ANALYST Miscellaneous samples (specimen) TISSUE SPECIMEN FROM SKIN / Unknown 04/23/2024 11:13 AM INTERVENTION ANALYST 04/25/2024 6:08 AM INTERVENTION ANALYST Miscellaneous samples (specimen) TISSUE SPECIMEN FROM SKIN / Unknown 04/23/2024 11:13 AM INTERVENTION ANALYST 04/25/2024 6:08 AM INTERVENTION ANALYST Yuliana Wall MD LAB - PATHOLOGY/CYTO LOGY ORDERABLES DERMATOPATHOLOGY LABORATORY [facility] - Department of Dermatology [address] [phone] from Last 3 Months SHOLA PAZ Personal/Family Spouse 1950 [address] [phone] SHOLA PAZ Personal/Family Spouse [address] [phone]
--- OUTSIDE RECORDS SUMMARY | 2024-04-29 06:43 | XMS_ITS ---
Author Organization [facility] Address [address] [place], [place] [address] Care Team Providers Care Online Activist Name Role Phone MARLA STEEL Unavailable [phone] Forrest Castañeda Unavailable Unavailable REASON FOR VISIT *General care Medications Medication SIG (Take, Route, Frequency, Duration) Notes Start Date End Date Status Tamsulosin HCl 0.4 MG 1 capsule Orally O nce a day Active Montelukast Sodium 10 MG 1 tablet Orally Once a day Active hydroCHLOROthiazide 25 MG 1 tablet in th e morning Orally Once a day Active Social History Tobacco Use: Social History Observation Description Date Details (start date - stop date) Former Smoker NA - NA Tobacco Use/Smoking Question Answer Notes Tobacco use: former smoker Encounters Encounter Location Date Provider Diagnosis [facility] [place] [address] [place], [place] [id number] 02/28/2024 MARLA STEEL Fungal infection of nail B35.1 ; Pain in right toe(s) M79.674 ; Pain in left toe(s) M79.675 and Unspecified atherosclerosis of [place] arteries of extremities, bilateral legs I70.203 Assessments Encounter Date Diagnosis (ICD Code) Assessment Notes Treatment Notes Treatment Clinical Notes Section Notes 02/28/2024 Fungal infection of nail (ICD-10 - B35.1) Nails 1-5 Bilateral were debrided extensively with nail nippers and emery board, reducing length and girth to pink healthy tissue with any subungual debris and necrotic tissue removed 02/28/2024 Pain in right toe(s) (ICD-10 - M79.674) 02/28/2024 Pain in left toe(s) (ICD-10 - M79.675) 02/28/2024 Unspecified atherosclerosis of [place] arteries of extremities, bilateral legs (ICD-10 - I70.203) Plan Of Treatment Treatment Notes Assessment Notes Fungal infection of nail Nails 1-5 Bilat eral were debrided extensively with nail nippers and emery board, reducing length and girth to pink healthy tissue with any subungual debris and necrotic tissue removed Next Appt Details Provider Name:MARLA GALLARDO, 05/01/2024 10:20:00 AM, [address], [address], [phone], Progress Notes * ADRIANAZaireDOB:1950 (73 yo M)Acc No.[id number]:02/28/2024 Patient: Zaire RHODES Provider: Jj Steel DPM :1950 A ge:73 Y S ex:Male Date:02/28/2024 Address:[address] [place], [place] [id number] Subjective: * Chief Complaints: * * General care * HPI: H PI: General care P atient presents to the office for at risk foot care. Patient states that their nails are thickened, elongated and painful. Patient states that it is aggravated by shoe gear. Onset is gradual. Patient denies being diabetic. Patient denies taking prescription blood thinners but does take a daily aspirin. Date last seen by Dr. Castañeda was 12/2023. Initials sea. * ROS: G eneral / Constitutional: Patient denies c hills, fever. E ndocrine: Patient denies e xcessive thirst, frequent urination. ? C ardiovascular: Patient denies s hortness of breath, chest pain. S kin: Patient denies m ole changes. * Medical History: * Surgical History: t onsillectomy KIDNEY STONES Right Leg * Hospitalization/Major Diagno stic Procedure: * Family History: F ather: unknown, cancer, Diabetic. M other: unknown, lung disease. B rother: unknown, lung disease, cancer. S ister: unknown, cancer. * Social History: T obacco Use: T obacco Use/Smoking T obacco use: f ormer smoker D rugs/Alcohol: D o you drink alcohol?: Yes. * Medications: T akinghydroCHLOROthiazide 25 MG Tablet 1 tablet in the morning Orally Once a day Montelukast Sodium 10 MG Tablet 1 tablet Orally Once a day Tamsulosin HCl 0.4 MG Capsule 1 capsule Orally Once a day Taking hydroCHLOROthiazide 25 MG Tablet 1 tablet in the morning Orally Once a day Taking Montelukast Sodium 10 MG Tablet 1 tablet Orally Once a day Taking Tamsulosin HCl 0.4 MG Capsule 1 capsule Orally Once a day Objective: * Vitals: * Examination: P hysical Examination: Gen: T he patient is awake, alert, well developed, well groomed and well nourished. They are in no apparent distress. . Musc: F oot structure is normal. No abnormalities noted. Muscle strength is 5/5 to all joints bilaterally. There is no pain on palpation. . Derm: S kin is warm and dry, with no rashes, good skin turgor and normal hair distribution. Nails are thick, discolored, and dystrophic with subungual debris. They are painful to palpation. Improvement noted.. Neuro: G rossly intact to light touch bilateral.. Vasc: D orsalis pedis and posterior tibial pulses 2+ bilaterally. No edema noted. Capillary fill time < 3 seconds to all digits. . Assessment: * Assessment: 1. F ungal infection of nail - B35.1 (Primary) 2 . P ain in right toe(s) - M79.674 3 . P ain in left toe(s) - M79.675 4 . U nspecified atherosclerosis of [place] arteries of extremities, bilateral legs - I70.203 Plan: * Treatment: * Procedure Codes: 1 1721 DEBRIDE NAIL, 6 OR MORE, Modifiers: Q8 * Billing Information: * Visit Code: * Procedure Codes: 56375 DEBRIDE NAIL, 6 OR MORE. Modifiers: Q8 * LAYING AND GLUING MACHINE OPERATOR Sign off status: Completed true * Provider: Jj Steel DPM Date: 04/30/2023 Generated for Marcos calix/Kleber/eTransmitting on: 0 04/29/2024 06:43 AM LEAD LAYING AND GLUING MACHINE OPERATOR History and Physical Notes * HPI (History of Present Illness) Category Sub-Category Detail Notes Category Not es HPI General care Patient presents to the office for at risk foot care. Patient states that their nails are thickened, elongated and painful. Patient states that it is aggravated by shoe gear. Onset is gradual. Patient denies being diabetic. Patient denies taking prescription blood thinners but does take a daily aspirin. Date last seen by Dr. Castañeda was 12/2023. Initials sea Examination Category Sub-Category Detail Notes Category Not es Physical Examination Gen: The patient is awake, alert, well developed, well groomed and well nourished. They are in no apparent distress. Vasc: Dorsalis pedis and p osterior tibial pulses 2+ bilaterally. No edema noted. Capillary fill time < 3 seconds to all digits. Neuro: Grossly intact to li ght touch bilateral. Musc: Foot structure is no rmal. No abnormalities noted. Muscle strength is 5/5 to all joints bilaterally. There is no pain on palpation. Derm: Skin is warm and dry , with no rashes, good skin turgor and normal hair distribution. Nails are thick, discolored, and dystrophic with subungual debris. They are painful to palpation. Improvement noted.
--- OUTSIDE RECORDS SUMMARY | 2024-04-29 06:43 | XMS_ITS ---
Author Organization [facility] Address [address] [place], [place] [phone] Care Team Providers Care Linoleum Layer Apprentice Name Role Phone MARLA STEEL Unavailable [phone] Forrest Castañeda Unavailable Unavailable REASON FOR VISIT *General care Medications Medication SIG (Take, Route, Frequency, Duration) Notes Start Date End Date Status Tamsulosin HCl 0.4 MG 1 capsule Orally O nce a day Active hydroCHLOROthiazide 25 MG 1 tablet in th e morning Orally Once a day Active Montelukast Sodium 10 MG 1 tablet Orally Once a day Active Social History Tobacco Use: Social History Observation Description Date Details (start date - stop date) Former Smoker NA - NA Tobacco Use/Smoking Question Answer Notes Tobacco use: former smoker Vital Signs Height 71 in 12/13/2023 Weight 245 lbs 12/13/2023 BMI 34.17 kg/m2 12/13/2023 Height-cm 180.34 cm 12/13/2023 Weight-kg 111.13 kg 12/13/2023 Encounters Encounter Location Date Provider Diagnosis [facility] [address] [place], [place] [id number] 12/13/2023 MARLA STEEL Fungal infection of nail B35.1 ; Pain in right toe(s) M79.674 and Pain in left toe(s) M79.675 Assessments Encounter Date Diagnosis (ICD Code) Assessment Notes Treatment Notes Treatment Clinical Notes Section Notes 12/13/2023 Fungal infection of nail (ICD-10 - B35.1) Nails 1-5 Bilateral were debrided extensively with nail nippers and emery board, reducing length and girth to pink healthy tissue with any subungual debris and necrotic tissue removed 12/13/2023 Pain in right toe(s) (ICD-10 - M79.674) 12/13/2023 Pain in left toe(s) (ICD-10 - M79.675) Plan Of Treatment Treatment Notes Assessment Notes Fungal infection of nail Nails 1-5 Bilat eral were debrided extensively with nail nippers and emery board, reducing length and girth to pink healthy tissue with any subungual debris and necrotic tissue removed Next Appt Details Provider Name:MARLA GALLARDO, 05/01/2024 10:20:00 AM, [address], [address], [phone], Progress Notes * Zaire PAZDOB:1950 (73 yo M)Acc No.[id number]:12/13/2023 Patient: Zaire RHODES Provider: Jj Steel DPM :1950 A ge:73 Y S ex:Male Date:12/13/2023 Address:[address] [place], [place] [phone] Subjective: * Chief Complaints: * * General [...] Date last seen by Dr. Castañeda was 06/2023. Initials sea. * ROS: G eneral / [...] Orally Once a day Objective: * Vitals: W t:245lbs, Wt-k.13 kg, Ht: 71 in, Ht-cm: 180.34 cm, BMI:34.17Index, Body Surface Area: 2.36. * Examination: P hysical Examination: Gen: T [...] P ain in left toe(s) - M79.675 Plan: * Treatment: * Procedure Codes: 1 1721 DEBRIDE NAIL, 6 OR MORE, Modifiers: Q8 * Billing Information: * Visit Code: * Procedure Codes: 36018 DEBRIDE NAIL, 6 OR MORE. Modifiers: Q8 * Sign off status: Completed true * Provider: Jj Steel DPM Date: 0 12/13/2023 Generated for Marcos calix/Kleber/Beulah on: 0 04/29/2024 06:43 AM BUTTER MELTER History and Physical Notes * HPI (History [...] Date last seen by Dr. Castañeda was 06/2023. Initials sea Examination Category Sub-Category Detail Notes [...]
--- OUTSIDE RECORDS SUMMARY | 2024-04-29 06:44 | XMS_ITS | Patient Health Record ---
Author Organization [facility] Address [address] [place], [place] [id number] Care Team Providers Care Anchor Tacker Name Role Phone NATALIIA MARLA Unavailable [phone] Forrest Castañeda Unavailable Unavailable Allergies No Known Allergies Reason For Referral No Information Medications Medication SIG (Take, Route, Frequency, Duration) Notes Start Date End Date Status Tamsulosin HCl 0.4 MG 1 capsule Orally O nce a day Active Montelukast Sodium 10 MG 1 tablet Orally Once a day Active hydroCHLOROthiazide 25 MG 1 tablet in th e morning Orally Once a day Active Immunizations Vaccine Route Administration Date Status Comme nts Influenza, high dose seasonal Unknown 12/16/2022 Admini stered Social History Tobacco Use: Social History Observation Description Date Details (start date - stop date) Former Smoker NA - NA Tobacco Use/Smoking Question Answer Notes Tobacco use: former smoker Vital Signs Height-cm 180.34 cm 12/13/2023 Weight-kg 111.13 kg 12/13/2023 Height 71 in 12/13/2023 Weight 245 lbs 12/13/2023 BMI 34.17 kg/m2 12/13/2023 Encounters Encounter Location Date Provider Diagnosis [facility] [address] [place], [place] [id number] 06/29/2023 MARLA WILLIAM Fungal infection of nail B35.1 ; Pain in right toe(s) M79.674 and Pain in left toe(s) M79.675 [facility] [address] [place], [place] [phone] 10/11/2023 MARLA NATALIIA Fungal infection of nail B35.1 ; Pain in right toe(s) M79.674 and Pain in left toe(s) M79.675 [facility] [place] [address] [place] [id number] 12/13/2023 MARLA [place] Fungal infection of nail B35.1 ; Pain in right toe(s) M79.674 and Pain in left toe(s) M79.675 [facility] [place] [address] [place] [id number] 02/28/2024 MARLA [place] Fungal infection of nail B35.1 ; Pain in right toe(s) M79.674 ; Pain in left toe(s) M79.675 and Unspecified atherosclerosis of [place] arteries of extremities, bilateral legs I70.203 Assessments Encounter Date Diagnosis (ICD Code) Assessment Notes Treatment Notes Treatment Clinical Notes Section Notes 06/29/2023 Fungal infection of nail (ICD-10 - B35.1) Nails 1-5 Bilateral were debrided extensively with nail nippers and emery board, reducing length and girth to pink healthy tissue with any subungual debris and necrotic tissue removed 10/11/2023 Fungal infection of nail (ICD-10 - B35.1) Nails 1-5 Bilateral were debrided extensively with nail nippers and emery board, reducing length and girth to pink healthy tissue with any subungual debris and necrotic tissue removed 12/13/2023 Fungal infection of nail (ICD-10 - B35.1) Nails 1-5 Bilateral were debrided extensively with nail nippers and emery board, reducing length and girth to pink healthy tissue with any subungual debris and necrotic tissue removed 02/28/2024 Pain in right toe(s) (ICD-10 - M79.674) 02/28/2024 Fungal infection of nail (ICD-10 - B35.1) Nails 1-5 Bilateral were debrided extensively with nail nippers and emery board, reducing length and girth to pink healthy tissue with any subungual debris and necrotic tissue removed 02/28/2024 Pain in left toe(s) (ICD-10 - M79.675) 12/13/2023 Pain in right toe(s) (ICD-10 - M79.674) 10/11/2023 Pain in right toe(s) (ICD-10 - M79.674) 06/29/2023 Pain in right toe(s) (ICD-10 - M79.674) 06/29/2023 Pain in left toe(s) (ICD-10 - M79.675) 10/11/2023 Pain in left toe(s) (ICD-10 - M79.675) 12/13/2023 Pain in left toe(s) (ICD-10 - M79.675) 02/28/2024 Unspecified atherosclerosis of [place] arteries of extremities, bilateral legs (ICD-10 - I70.203) Plan Of Treatment Next Appt Details Provider Name:MARLA GALLARDO, 05/01/2024 10:20:00 AM, [address], [facility], [place], [place], [phone], Insurance Providers Payer Name Payer Address Payer Phone Subscriber Number Group Number Insured Name Patient Relationship to Insured Coverage Start Date Coverage End Date Medicare Part B [place] [address] [place] [address] [id number] Zaire Arvizu Self - patient is the insured [employer] Medicare Supplemental Benefit Plans [id number] [address] [address] [place], [place] [phone] [id number] Zaire Arvizu Self - patient is the insured Medical (General) History Medical History History ICD Code kidney stones Leg/Feet cramps Arthritis Sleep apnea Surgical History Surgery Date(Month/Year) tonsillectomy KIDNEY STONES Right Leg
--- OUTSIDE RECORDS SUMMARY | 2024-04-29 06:44 | XMS_ITS | Encounter Summary ---
Author Organization [facility] Address [address] [place] [address] Care Team Providers Care Fiber Optics Technician Name Role Phone Unavailable Primary Care Provider Unavailabl e Encounter Details Date Type Department Care Team (Late st Contact Info) Description 05/08/[address] [facility] - DermPath Lab [address] [place] [id number] Adarsh Bryant MD [address] [address] Social History Tobacco Use Types [...] Priority Date/Time Associated Diagnosis Comments DERMATOPATHOLOGY Routine 05/07/2023 3:33 AM MATERIALS MANAGEMENT CLERK documented in this encounter Results * DERMATOPATHOLOGY (05/07/2023 3:33 AM MATERIALS MANAGEMENT CLERK) Case Report Dermatopathology Report Case: [id number] Authorizing Provider: Adarsh Bryant MD Collected: 05/07/2023 03:33 AM Ordering Location: [facility] DermPath Lab Received: 05/08/2023 12:52 PM Pathologist: Laurel Lizarraga MD Specimens: A) - Skin, left mid paraspinal back B) - Skin, left lower lat back 3:01 PM MATERIALS MANAGEMENT CLERK DERMATOPATHOLOGY LABORATORY Final Diagnosis Specimen A. 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 SKIN, left lower lat back: LICHEN PLANUS-LIKE KERATOSIS (BENIGN LICHENOID KERATOSIS) (L82.1) 4 3:01 PM [facility] DERMATOPATHOLOGY LABORATORY Clinical History A-B: R/O SCC, Barragan's 4 3:01 PM [facility] DERMATOPATHOLOGY LABORATORY Gross Description Specimen A: Received is one formalin filled container labeled with the patient's name and designated left mid paraspinal back. The specimen consists of a shave biopsy measuring 24d24y8 mm. Jar 0. Specimen B: Received is one formalin filled container labeled with the patient's name and designated left lower lat back. The specimen consists of a shave biopsy measuring 01r68x2 mm. Jar 0. 4 3:01 PM [facility] DERMATOPATHOLOGY LABORATORY Microscopic Description Specimen A. SKIN, left mid paraspinal back: The epidermis is mildly acanthotic. There is a lichenoid infiltrate with vacuolar changes of basilar keratinocytes and scattered necrotic keratinocytes. Specimen B. SKIN, left lower lat back: The epidermis is mildly acanthotic. There is a lichenoid infiltrate with vacuolar changes of basilar keratinocytes and scattered necrotic keratinocytes. 4 3:01 PM [facility] DERMATOPATHOLOGY LABORATORY Disclaimer An external and internal positive and negative controls are appropriate for the histochemical, immunohistochemical and immunofluorescence stain(s) in this case (if any), except where stated explicitly. The performance characteristics of the stain(s) cited in this report were developed and its performance characteristic determined by the Dermatopathology Laboratory at [facility], directed by Dr. Robby Juraez. These tests need not be, and therefore are not, approved by the [place] Food and Drug Administration. The tests are used for clinical purposes. Billing Codes Specimen Charges Stain Charges 59584 03410 1 1 4 3:01 PM MATERIALS MANAGEMENT CLERK DERMATOPATHOLOGY LABORATORY Embedded Images 4 3:01 PM [facility] DERMATOPATHOLOGY LABORATORY Pathology/Cytology TISSUE SPECIMEN FROM SKIN / Unknown 05/07/2023 3:33 AM MATERIALS MANAGEMENT CLERK 05/08/2023 12:52 PM MATERIALS MANAGEMENT CLERK Miscellaneous samples (specimen) TISSUE SPECIMEN FROM SKIN / Unknown 05/07/2023 3:33 AM MATERIALS MANAGEMENT CLERK 05/08/2023 12:52 PM MATERIALS MANAGEMENT CLERK Adarsh D Manny MD LAB - PATHOLOGY/CYTO LOGY ORDERABLES DERMATOPATHOLOGY LABORATORY [facility] - Department of Dermatology [facility] Medicine [address] [place] [address], [address] [phone] documented in this encounter Visit Diagnoses Not on filedocumented in this encounter
--- OUTSIDE RECORDS SUMMARY | 2024-04-29 06:44 | XMS_ITS | Clinical Summary ---
Author Organization [facility] Address [address] [place] [address] Care Team Providers Care Director Of Sports Performance Name Role Phone Unavailable Primary Care Provider Unavailabl e Social History Tobacco Use Types Packs/Day Years Used Date Smoking Tobacco: Never Assessed Sex and Gender Information Value Date Recorded Sex Assigned at Not on file Legal Sex Male 5:38 PM CDT Gender Identity Not on file Sexual Orientation Not on file Plan of Treatment Health Maintenance Due Date Last Done Comments Colorectal Cancer Screening Colonoscopy (10 Years) 1950 Hepatitis C 1966 DTaP, Tdap and Td Vaccines ( 1 - Tdap) 06/28/1967 Zoster Vaccines (1 of 2) 1998 Pneumococcal Vaccine: 65+ Ye ars (1 of 1 - PCV) 2013 RSV Immunization or 60+ Years (1 - 1-dose 75+ series) 06/28/2023 COVID-19 Vaccine ( - 2023-2 5 season) 2023 Influenza Adult (#1) 2023 Meningococcal B Vaccine Aged Out No l onger eligible based on patient's age to complete this topic Meningococcal Vaccine Aged Out No kishan anita eligible based on patient's age to complete this topic RSV Immunizations Under 20 Months Aged Out No longer eligible based on patient's age to complete this topic
--- OUTSIDE RECORDS SUMMARY | 2024-04-29 06:44 | XMS_ITS | Patient Health Summary ---
Author Organization [facility] Address [address] [place] [address] Care Team Providers Care Balance Wheel Screw Hole Driller Name Role Phone Unavailable Primary Care Provider Unavailabl e Note from [facility],non-owned Affiliates and Associated Physician Practices is amultiple site organization consisting of ambulatory clinics and hospital sitesin [place], [place], [place] and [place]. This disclosure is being madepursuant to the Care Everywhere program and may not contain all information available regarding this patient. Last updated 17.[facility] [employer] Social History Tobacco Use Types Packs/Day Years Used Date Smoking Tobacco: Never Assessed Sex and Gender Information Value Date Recorded Sex Assigned at Not on file Gender Identity Not on file Sexual Orientation Not on file Procedures * DERMATOPATHOLOGY(Performed 04/23/2024) * DERMATOPATHOLOGY(Performed 05/07/2023) * DERMATOPATHOLOGY(Performed 01/26/2021) * DERMATOPATHOLOGY(Performed 07/17/2017) * DERMATOPATHOLOGY(Performed 06/08/2016) Results * DERMATOPATHOLOGY (04/23/2024 11:13 AM HOTEL OR MOTEL CLEANING SUPERVISOR) Only the most recent of5 resultswithin the time period is included. Case Report Dermatopathology Report Case: [id number] Authorizing Provider: Yuliana Wall MD Collected: 04/23/2024 11:13 AM Ordering Location: [facility] - Received: 04/25/2024 06:08 AM DermPath Lab Pathologist: Laurel Lizarraga MD Specimens: A) - Skin, left cheek B) - Skin, upper back C) - Skin, left thigh 2:24 PM HOTEL OR MOTEL CLEANING SUPERVISOR DERMATOPATHOLOGY LABORATORY Final Diagnosis Specimen A. SKIN, left cheek: ACTINIC KERATOSIS (L57.0) Specimen B. SKIN, upper back: LICHEN PLANUS-LIKE KERATOSIS (BENIGN LICHENOID KERATOSIS) (L82.1) Specimen C. SKIN, left thigh: SQUAMOUS CELL CARCINOMA, WELL DIFFERENTIATED (C44.729) 2:24 PM [facility] DERMATOPATHOLOGY LABORATORY Clinical History A: AK vs SCC B: R/O ISK C: R/O SCC 2:24 PM [facility] DERMATOPATHOLOGY LABORATORY Gross Description Specimen A: Received [...] measuring 10x9x4 mm. Jar 0. 2:24 PM [facility] DERMATOPATHOLOGY LABORATORY Microscopic Description Specimen A. SKIN, [...] showing evidence of premature cornification. 2:24 PM [facility] DERMATOPATHOLOGY LABORATORY Disclaimer An external and internal positive and negative controls are appropriate for the histochemical, immunohistochemical and immunofluorescence stain(s) in this case (if any), except where stated explicitly. The performance characteristics of the stain(s) cited in this report were developed and its performance characteristic determined by the Dermatopathology Laboratory at [facility], directed by Dr. Robby Juarez. These tests need not be, and therefore are not, approved by the [place] Food and Drug Administration. The tests are used for clinical purposes. Billing Codes Specimen Charges Stain Charges 04369 76394 31416 1 1 1 2:24 PM [facility] DERMATOPATHOLOGY LABORATORY Embedded Images 2:24 PM HOTEL OR MOTEL CLEANING SUPERVISOR DERMATOPATHOLOGY LABORATORY Pathology/Cytology TISSUE SPECIMEN FROM SKIN / Unknown 04/23/2024 11:13 AM HOTEL OR MOTEL CLEANING SUPERVISOR 04/25/2024 6:08 AM HOTEL OR MOTEL CLEANING SUPERVISOR Miscellaneous samples (specimen) TISSUE SPECIMEN FROM SKIN / Unknown 04/23/2024 11:13 AM HOTEL OR MOTEL CLEANING SUPERVISOR 04/25/2024 6:08 AM HOTEL OR MOTEL CLEANING SUPERVISOR Miscellaneous samples (specimen) TISSUE SPECIMEN FROM SKIN / Unknown 04/23/2024 11:13 AM HOTEL OR MOTEL CLEANING SUPERVISOR 04/25/2024 6:08 AM HOTEL OR MOTEL CLEANING SUPERVISOR Yuliana Wall MD LAB - PATHOLOGY/CYTO LOGY ORDERABLES DERMATOPATHOLOGY LABORATORY [facility] - Department of Dermatology [facility] Medicine [address] [place] [address]
--- OUTSIDE RECORDS SUMMARY | 2024-04-29 06:44 | XMS_ITS | Clinical Summary ---
Author Organization [facility] Address [address] [place] [address] Phone Care Team Providers Care Filling Mixer Name Role Phone Justin Huffman MD Primary Care Provider [phone] Allergies No known active allergies Medications montelukast (SINGULAIR) 10 mg tablet Take 10 mg by mouth daily at bedtime. Active cetirizine (ZyrTEC) 10 mg tablet Take 10 mg by mouth daily. Active aspirin (ECOTRIN EC) 81 mg Tablet, Delayed Release (E.C.) Take 81 mg by mouth daily. Active tamsulosin (FLOMAX) 0.4 mg capsule TAKE 1 CAPSULE BY MOUTH EVERY DAY AT BEDTIME - NEEDS APPOINTMENT FOR BEFORE NEXT REFILL Active azelastine (ASTELIN) 137 mcg/actuation nasal spray Administer 2 Sprays in each nostril 2 times daily. 30 mL 2 3 Active Active Problems Problem Noted Date Diagnosed Date Mild aortic valve stenosis 01/09/2023 Obesity (BMI 30.0-34.9) 2019 Shortness of breath on exertion 2019 Recurrent respiratory infection 2019 Chronic sinusitis 2019 Chronic cough 2019 Essential hypertension 2019 Severe obstructive sleep apnea 2019 Obstructive sleep apnea on CPAP 2019 Mild aortic valve regurgitation 2019 Diastolic dysfunction, left ventricle 2019 Resolved Problems Problem Noted Date Diagnosed Date Resolved Date Abnormal CT of the chest 2019 Encounters Date Type Department Care Team Description 04/10/2024 External Device Data STL ABSTRACTION Provider, Abstract from Last 3 Months Family History Medical History Relation Name Comments Cancer Brother HALF SKIN Cancer Father SKIN Diabetes Father Hypertension Father Emphysema Maternal Grandfather Bronchitis Mother Emphysema Mother Cancer Sister BREAST Asthma Neg Hx Heart Failure Neg Hx Lung Cancer Neg Hx Mesothelioma Neg Hx Relation Name Status Comments Brother HALF Father Maternal Grandfather Mother Sister Social History Tobacco Use Types Packs/Day Years Used Date Smoking Tobacco: Never Smokeless Tobacco: Former Chew Tobacco Cessation:Counseling Given: Not Answered Sex and Gender Information Value Date Recorded Sex Assigned at Not on file Legal Sex Male 12:12 PM OIL FIELD EQUIPMENT MECHANIC SUPERVISOR Gender Identity Not on file Sexual Orientation Not on file Last Filed Vital Signs Vital Sign Reading Time Taken Comments Blood Pressure 130/80 01/01/2023 2:08 PM CDT Pulse 95 01/01/2023 2:08 PM CDT Temperature - - Respiratory Rate 18 11/12/2020 10:2 1 AM CDT Oxygen Saturation 95% 01/01/2023 2:08 PM CDT ra Inhaled Oxygen Concentration - - Weight 112.7 kg (248 lb 6.4 oz) 01/01/2023 2:08 PM CDT Height 180.3 cm (5' 11 ) 01/01/2023 2:08 PM CDT Body Mass Index 34.64 01/01/2023 2:08 PM CDT Plan of Treatment Health Maintenance Due Date Last Done Comments FIT-DNA Q 3 years 1993 FIT/FOBT Q 1 year 1993 Flex Sig/CT Colonography Q 5 years 1993 ZOSTER VACCINE (2 of 2) 11/26/2018 10/01/2018 DTAP/TDAP/TD VACCINES (1 - Tdap) 08/20/2020 08/20/19 21 RSV VACCINE (60+ or ) (1 - 1-dose 75+ series) 06/28/2023 INFLUENZA VACCINE (#1) 2023 3, 12/21/2021, 12/11/2019, Additional history exists COLORECTAL SCREENING 10/05/2027 10/04/2017, 07/22/19 17 Colorectal Cancer Screening 10/05/2027 PNEUMOCOCCAL VACCINE 65+ YEARS Completed 01/01/2018 , 04/23/2014 Insurance MEDICARE PART A AND B [facility] JOYCELYN PURDY [facility] Care Teams Filling Mixer Relationship Specialty Start Date End Date Justin Huffman MD [address] [place] [id number] PCP - General Internal Medicine 05/15/19
--- OUTSIDE RECORDS SUMMARY | 2024-04-29 06:44 | XMS_ITS | Referral Summary ---
Author Organization [facility] Address [address] [place] [address] Care Team Providers Care Food Counter Worker Name Role Phone Justin Huffman MD Primary Care Provider No, Physician Unavailable Allergies No known active allergies Medications gabapentin (NEURONTIN) 300 mg capsule Take 1 capsule (300 mg total) by mouth 3 (three) times a day. 90 capsule 10/10/2017 Active Active Problems Problem Noted Date Diagnosed Date Pain of foot 10/30/2014 Social History Tobacco Use Types Packs/Day Years Used Date Smoking Tobacco: Never Alcohol Use Standard Drinks/Week Comments Yes 0 (1 standard drink = 0.6 oz pur e alcohol) SOCIAL Personal Safety Answer Date Recorded Getting School Help Needed Not on file 06/01 Sex and Gender Information Value Date Recorded Sex Assigned at Not on file Legal Sex Male 5:44 AM ASSISTANT GENERAL MANAGER Gender Identity Male 06/16/2019 12:52 PM CDT Sexual Orientation Straight 06/16/2019 12 :52 PM CDT Last Filed Vital Signs Vital Sign Reading Time Taken Comments Blood Pressure - - Pulse - - Temperature - - Respiratory Rate - - Oxygen Saturation - - Inhaled Oxygen Concentration - - Weight 106.6 kg (235 lb) 10/10/2017 1:41 PM CDT Height 180.3 cm (5' 11 ) 10/10/2017 1:41 PM CDT Body Mass Index 32.78 10/10/2017 1:41 PM CDT Plan of Treatment Not on file Insurance MEDICARE [facility] MEDICARE SUPPLEMENT INSURANCE MEDICARE [facility] MEDICARE SUPPLEMENT INSURANCE Care Teams Food Counter Worker Relationship Specialty Start Date End Date Justin Huffman MD PCP - General Internal Medicine 08/22/17 No, Physician 08/22/17
--- OUTSIDE RECORDS SUMMARY | 2024-04-29 06:44 | XMS_ITS ---
Author Organization [facility] Address [address] [place], [place] [id number] Care Team Providers Care Almond Paste Molder Name Role Phone MARLA STEEL Unavailable [phone] Forrest Castañeda Unavailable Unavailable REASON FOR VISIT *Fungal nail check Medications Medication SIG (Take, Route, Frequency, Duration) [...] former smoker Vital Signs Height 71 in 10/11/2023 Weight 245 lbs 10/11/2023 BMI 34.17 kg/m2 10/11/2023 Height-cm 180.34 cm 10/11/2023 Weight-kg 111.13 kg 10/11/2023 Encounters Encounter Location Date Provider Diagnosis [facility] [address] [place], [place] [id number] 10/11/2023 MARLA STEEL Fungal infection of nail B35.1 ; Pain in right toe(s) M79.674 and Pain in left toe(s) M79.675 Assessments Encounter Date Diagnosis (ICD Code) Assessment Notes Treatment Notes Treatment Clinical Notes Section Notes 10/11/2023 Fungal infection of nail (ICD-10 - B35.1) Nails 1-5 Bilateral were debrided extensively with nail nippers and emery board, reducing length and girth to pink healthy tissue with any subungual debris and necrotic tissue removed 10/11/2023 Pain in right toe(s) (ICD-10 - M79.674) 10/11/2023 Pain in left toe(s) (ICD-10 - M79.675) Plan Of Treatment Treatment Notes Assessment Notes Fungal infection of nail Nails 1-5 Bilat eral were debrided extensively with nail nippers and emery board, reducing length and girth to pink healthy tissue with any subungual debris and necrotic tissue removed Next Appt Details Provider Name:MARLA GALLARDO, 05/01/2024 10:20:00 AM, [address], [address], [id number], Progress Notes * Zaire PAZDOB:1950 (73 yo M)Acc No.[id number]:10/11/2023 Patient: Zaire RHODES Provider: Jj Steel DPM :1950 A ge:73 Y S ex:Male Date:10/11/2023 Address:[address] [place], [place] [id number] Subjective: * Chief Complaints: * 1 . *Fungal nail check. * HPI: H PI: General care Hamilton enriquez presents to the office for at risk foot care. Patient states that their nails are thickened, elongated and painful. Patient states that it is aggravated by shoe gear. Onset is gradual. Patient denies being diabetic., Patient denies taking prescription blood thinners but does take a daily aspirin., Date last seen by Dr. Castañeda was June 2023., Initials JR. Follow Up Visit Hamilton enriquez presents for follow up visit for fungal nail check. , Patient states their problem is, improving., MA: . * ROS: G eneral / Constitutional: Patient denies c hills, fever. E ndocrine: Patient denies e xcessive thirst, frequent urination. ? C ardiovascular: Patient denies s hortness of breath, chest pain. S kin: Patient denies m ole changes. * Medical History: K idney stones, Leg/Feet cramps, Arthritis, Sleep apnea. * Surgical History: t onsillectomy , KIDNEY STONES , Right Leg . * Family History: F ather: unknown, cancer, Diabetic. M other: unknown, lung disease. B rother: unknown, lung disease, cancer. S ister: unknown, cancer. * Social History: T obacco Use: T obacco Use/Smoking T obacco use: f ormer smoker D rugs/Alcohol: D o you drink alcohol?: Yes. * Medications: T aking hydroCHLOROthiazide 25 MG Tablet 1 tablet in the morning Orally Once a day , Taking Montelukast Sodium 10 MG Tablet 1 tablet Orally Once a day , Taking Tamsulosin HCl 0.4 MG Capsule 1 [...] toe(s) - M79.675 Plan: * Treatment: * Billing Information: * Visit Code: 41833 Office Visit, Est Pt., Level 3. * Procedure Codes: * Sign off status: Completed true * Provider: Jj Steel DPM Date: 0 10/11/2023 Generated for Marcos calix/Kleber/Beulah on: 0 04/29/2024 06:44 AM AUTOMATION TENDER History and Physical Notes * HPI (History of Present Illness) Category Sub-Category Detail Notes Category Not es HPI General care Patient presents to the office for at risk foot care. Patient states that their nails are thickened, elongated and painful. Patient states that it is aggravated by shoe gear. Onset is gradual. Patient denies being diabetic., Patient denies taking prescription blood thinners but does take a daily aspirin., Date last seen by Dr. Castañeda was June 2023., Initials JR Follow Up Visit Patient presents for follow up visit for fungal nail check. , Patient states their problem is, improving., MA: JR Examination Category Sub-Category Detail Notes Category Not [...]
--- OUTSIDE RECORDS SUMMARY | 2024-04-29 06:44 | XMS_ITS | Encounter Summary ---
Author Organization [facility] Address [address] [place] [address] Care Team Providers Care Forensic Toxicologist Name Role Phone Unavailable Primary Care Provider Unavailabl e Encounter Details Date Type Department Care Team (Late st Contact Info) Description 01/27/2021 Lab Requisition [facility] DermPath Lab [address] [facility] [place] [id number] Adarsh Bryant MD [address] [place] [address] Social History Tobacco Use Types [...] Priority Date/Time Associated Diagnosis Comments DERMATOPATHOLOGY Routine 01/26/2021 12:0 0 AM NATURAL RESOURCES MANAGER documented in this encounter Results * DERMATOPATHOLOGY (01/26/2021 12:00 AM NATURAL RESOURCES MANAGER) Case Report Dermatopathology Report Case: [id number] Authorizing Provider: Adarsh Bryant MD Collected: 01/26/2021 12:00 AM Ordering Location: [facility] DermPath Lab Received: 01/27/2021 12:48 PM Pathologist: Nikita Juarez MD Specimen: Skin, right superior buttock 1 2:24 PM NATURAL RESOURCES MANAGER DERMATOPATHOLOGY LABORATORY Final Diagnosis Specimen A. 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 2:24 PM [facility] DERMATOPATHOLOGY LABORATORY Gross Description Specimen A: Received is one formalin filled container labeled with the patient's name and designated right superior buttock. The specimen consists of a shave biopsy measuring [id number], bisected. Jar 0. 2:24 PM [facility] DERMATOPATHOLOGY LABORATORY Microscopic Description Specimen A. SKIN, right superior buttock: There is a gently folded epidermis surrounding a connective tissue core in which fat and collagen are intermingled. 2:24 PM NATURAL RESOURCES MANAGER DERMATOPATHOLOGY LABORATORY Disclaimer An external and internal positive and negative controls are appropriate for the histochemical, immunohistochemical and immunofluorescence stain(s) in this case (if any), except where stated explicitly. The performance characteristics of the stain(s) cited in this report were developed and its performance characteristic determined by the Dermatopathology Laboratory at [facility], directed by Dr. Robby Juarez. These tests need not be, and therefore are not, approved by the [place] Food and Drug Administration. The tests are used for clinical purposes. Billing Codes Specimen Charges Stain Charges 33598 1 2:24 PM NATURAL RESOURCES MANAGER DERMATOPATHOLOGY LABORATORY Embedded Images 2:24 PM NATURAL RESOURCES MANAGER DERMATOPATHOLOGY LABORATORY Pathology/Cytolog y TISSUE SPECIMEN FROM SKIN / Unknown 01/26/2021 01/27/2021 12:48 PM NATURAL RESOURCES MANAGER Adarsh Bryant MD LAB - PATHOLOGY/CYTO LOGY ORDERABLES Performing Organization Address City/State/[facility] Co de Phone Number DERMATOPATHOLOGY LABORATORY [facility] - Department of Dermatology [address], [address] [phone] documented in this encounter Visit Diagnoses Not on filedocumented in this encounter
--- OUTSIDE RECORDS SUMMARY | 2024-04-29 06:44 | XMS_ITS | Continuity of Care Document ---
Author Organization [facility] Address [address] [place] [address] Phone Care Team Providers Care Material Control Specialist Name Role Phone Orellana OD, Tony Unavailable Unavailable Procedures Procedure Date Refraction Office/outpatient Visit, Est Progressive Lens, Plastic Frames Deluxe Tint Photochromatic, Plastic Tax - Medical Eye Exam & Treatment Refraction Eye Exam & Treatment Refraction Advance Directives Directive Yes / No Effective Date File Name No Information Encounters Encounter Description Practice Location Reason(s) For Visit Diagnoses Date Provider Providers Copied on Encounter [facility], [address] [place] [address] [address], [place], [place], [id number], [place] tel:[phone] [facility] No Information 2-201 0 Orellana OD Tony. [address] , [address], [place], [place], [facility], . tel:[phone] Office/outpat ient Visit, Est [facility], [address], [place], [place], [id number], [place] tel:[phone] [facility] No Information 4-200 9 Doisy Edmak. [address], [address], [place], [place], [facility], [place]. tel:[phone] [facility], [address], [place], [place], [id number], [place] tel:[phone] [facility] No Information 8 [facility] . [address], [address], [place], [place], [address], [place]. tel:[phone] Referring Provider: Gregory Ram, [address] [place] [address] [address], [place], [address]. tel:[phone] sulting Provider: Khoa Stehpens, [address] [place], [place] [address]ate [facility], [place], [place], [facility]. tel:[phone] [facility], [address], [place], [place], [id number], tel:[phone] [facility] No Information 8 Khang Jenkins. [address] [place] [address] , [address], [place], [place], [facility], [place]. tel:[phone] [facility], [address] [place] [address] [address], [place], [place], [address], [place] tel:[phone] [facility] No Information 7 Khang Jenkins. [address] [place] [address] , [address], [place], [address], [place]. tel:[phone] Family History Family Member Type Diagnosis Age At Onset No Information Payers Payer name Insurance type Covered democrat ID Authoriza tion(s) No Information Social History [...]
--- OUTSIDE RECORDS SUMMARY | 2024-04-29 06:44 | XMS_ITS | Encounter Summary ---
Author Organization [facility] Address [address] [place] [address] Care Team Providers Care It Security Project Manager Name Role Phone Unavailable Primary Care Provider Unavailabl e Encounter Details Date Type Department Care Team (Late st Contact Info) Description 04/23/2024 Lab Requisition [facility] - DermPath Lab [address] [facility] [address] [place] [address] Yuliana Wall MD [address] [facility] [address] [place] [address] Social History Tobacco Use Types Packs/Day Years [...] Comments DERMATOPATHOLOGY Routine 04/23/2024 11:1 3 AM DRESS CUTTER documented in this encounter Results * DERMATOPATHOLOGY (04/23/2024 11:13 AM DRESS CUTTER) Case Report Dermatopathology Report Case: [id number] Authorizing Provider: Yuliana Wall MD Collected: 04/23/2024 11:13 AM Ordering Location: [facility] - Received: 04/25/2024 06:08 AM DermPath Lab Pathologist: Laurel Lizarraga MD Specimens: A) - Skin, left cheek B) - Skin, upper back C) - Skin, left thigh 2:24 PM DRESS CUTTER DERMATOPATHOLOGY LABORATORY Final Diagnosis Specimen A. SKIN, left cheek: ACTINIC KERATOSIS (L57.0) Specimen B. SKIN, upper back: LICHEN PLANUS-LIKE KERATOSIS (BENIGN LICHENOID KERATOSIS) (L82.1) Specimen C. SKIN, left thigh: SQUAMOUS CELL CARCINOMA, WELL DIFFERENTIATED (C44.729) 2:[address] [facility] DERMATOPATHOLOGY LABORATORY Clinical History A: AK vs SCC B: R/O ISK C: R/O SCC 2:[address] [facility] DERMATOPATHOLOGY LABORATORY Gross Description Specimen A: [...] measuring 10x9x4 mm. Jar 0. 2:[address] [facility] DERMATOPATHOLOGY LABORATORY Microscopic Description Specimen A. [...] showing evidence of premature cornification. 2:[address] [facility] DERMATOPATHOLOGY LABORATORY Disclaimer An external and internal positive and negative controls are appropriate for the histochemical, immunohistochemical and immunofluorescence stain(s) in this case (if any), except where stated explicitly. The performance characteristics of the stain(s) cited in this report were developed and its performance characteristic determined by the Dermatopathology Laboratory at [facility], directed by Dr. Robby Juarez. These tests need not be, and therefore are not, approved by the [place] Food and Drug Administration. The tests are used for clinical purposes. Billing Codes Specimen Charges Stain Charges 72892 75453 09451 1 1 1 2:[address] [facility] DERMATOPATHOLOGY LABORATORY Embedded Images 2:[address] [facility] DERMATOPATHOLOGY LABORATORY Pathology/Cytology TISSUE SPECIMEN FROM SKIN / Unknown 04/23/2024 11:13 AM DRESS CUTTER 04/25/2024 6:08 AM DRESS CUTTER Miscellaneous samples (specimen) TISSUE SPECIMEN FROM SKIN / Unknown 04/23/2024 11:13 AM DRESS CUTTER 04/25/2024 6:08 AM DRESS CUTTER Miscellaneous samples (specimen) TISSUE SPECIMEN FROM SKIN / Unknown 04/23/2024 11:13 AM DRESS CUTTER 04/25/2024 6:08 AM DRESS CUTTER Yuliana Wall MD LAB - PATHOLOGY/CYTO LOGY ORDERABLES DERMATOPATHOLOGY LABORATORY [facility] - Department of Dermatology [facility] Medicine [address] [place] [address], [address] [phone] documented in this encounter Visit Diagnoses Not on filedocumented in this encounter
--- OUTSIDE RECORDS SUMMARY | 2024-04-29 06:44 | XMS_ITS | Clinical Summary ---
Author Organization [facility] Address [address] [place] [address] Care Team Providers Care Hearing Aid Dispenser Name Role Phone Justin Huffman MD Primary Care Provider No, Physician Unavailable Allergies No known active allergies Medications gabapentin (NEURONTIN) 300 mg capsule Take 1 capsule (300 mg total) by mouth 3 (three) times a day. 90 capsule 10/10/2017 Active Active Problems Problem Noted Date Diagnosed Date Pain of foot 10/30/2014 Surgical History Surgery Date Site/Laterality Comments TONSILECTOMY, ADENOIDECTOMY, BILATERAL MYRINGOTOMY AND TUBES FOOT FRACTURE SURGERY Medical History Medical History Date Comments Arthritis Family History Medical History Relation Name Comments Cancer Father Family history of malignant neoplasm - (Added by TW Conv) Diabetes Father Family history of diabetes mellitus - (Added by TW Conv) Heart disease Father Family history of cardiac disorder - (Added by TW Conv) Hypertension Father Family history of hypertension - (Added by TW Conv) Stroke Father Family history of cerebrovascular accident - (Added by TW Conv) Arthritis Mother Family history of arthritis - (Added by TW Conv) Heart disease Mother Family history of cardiac disorder - (Added by TW Conv) Lung disease Mother Family history of lung disease - (Added by TW Conv) Stroke Mother Family history of cerebrovascular accident - (Added by TW Conv) Cancer Sister Family history of malignant neoplasm - (Added by TW Conv) Relation Name Status Comments Father Mother Sister Social History Tobacco Use Types Packs/Day Years Used Date Smoking Tobacco: Never Alcohol Use Standard Drinks/Week Comments Yes 0 (1 standard drink = 0.6 oz pur e alcohol) SOCIAL Personal Safety Answer Date Recorded Getting School Help Needed Not on file 06/01 Sex and Gender Information Value Date Recorded Sex Assigned at Not on file Legal Sex Male 5: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
--- OUTSIDE RECORDS SUMMARY | 2024-04-29 06:44 | XMS_ITS ---
Author Organization [facility] Address [address] [place] [address] Care Team Providers Care Upper Cutter Out Name Role Phone Forrest Castañeda Primary Care Provider Silva Thomas Unavailable [phone] REASON FOR VISIT SCIT - Traditional Schedule Allergy immunotherapy Medications Medication SIG (Take, Route, Frequency, Duration) Notes Start Date End Date Status SIT (TRADITIONAL) variable per schedule SC per schedule for to be determined Active Encounters Encounter Location Date Provider Diagnosis [facility] [address] [address] 03/04/2024 Silva Lafleur Allergic rhinitis du e to pollen J30.1 ; Allergic rhinitis due to animal (cat) (dog) hair and dander J30.81 ; Other allergic rhinitis J30.89 and Other chronic allergic conjunctivitis H10.45 Assessments Encounter Date Diagnosis (ICD Code) Assessment Notes Treatment Notes Treatment Clinical Notes Section Notes 03/04/2024 Allergic rhinitis due to pollen (ICD-10 - J30.1) 03/04/2024 Allergic rhinitis due to animal (cat) (dog) hair and dander (ICD-10 - J30.81) 03/04/2024 Other allergic rhinitis (ICD-10 - J30.89) 03/04/2024 Other chronic allergic conjunctivitis (ICD-10 - H10.45) Plan Of Treatment Medication Medication Name Sig Start Date Stop Date Notes SIT (TRADITIONAL) variable per schedule SC per schedule for to be determined Next Appt Details Follow Up: 1 Week, Reason: Progress Notes * Zaire WRIGHTDOB:1950 (73 yo M)Acc No.[id number]:03/04/2024 SCIT-Aeroallergen Patient: Zaire RHODES Provider: Miguel Lafleur MD :1950 A ge:73 Y S ex:Male Date:03/04/2024 [facility] [id number] Pcp:Forrest Castañeda Subjective: * Chief Complaints: * 1 . SCIT - Traditional Schedule Allergy immunotherapy . * HPI: * Introduction: The patient is [...] immunotherapy) is on file. * Medical History: Objective: * Vitals: Assessment: * Assessment: 1. [...] Information: * Visit Code: * Procedure Codes: 67797 IMMUNOTHERAPY INJECTIONS. * Electronic signature of Priti Lafleur MD on 04/29/2024 at 06:44 AM [employer] Sign off status: Pending * Provider: Miguel Lafleur MD Date: 05/05/2023 Generated for Marcos calix/Kleber/Jerichoitting on: 0 04/29/2024 06:44 AM [employer] History and Physical Notes * HPI (History [...]
--- OUTSIDE RECORDS SUMMARY | 2024-04-29 06:44 | XMS_ITS | Data Portability ---
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 Phone DANDRE HUFFMAN Primary Care Provider DANDRE HUFFMAN Referring Provider Assessment Encounter Date Assessment Date Assessment LastModified by Organization Details LastModified Time 05/30/2022 05/30/2022 He will take hydrochlorothiazide living on about a week how he is doing pressure is up a little bit of dullness to help with that as well see me back in 3 months use CPAP Not available 05/30/2022 21:59:10 12/07/2022 12/07/2022 Referral for delia compa given the names of some ENT that he wants to investigate before he makes a decision which 1 that he wants to see follow-up me in 4 5 months continue current therapy [email or web address] Not available 12/08/2022 08:52:28 Plan of Treatment Reminders Order Date Submit Date Provider Last Modified By Organization Details Last Modified Time Details Appointments None recorded. Lab None recorded. Referral orthopedic surgeon referral 2022 023 [email or web address] Noble Riley MD, [address], [place], [address], 18:33:00 Procedures None recorded. Surgeries None recorded. Imaging None recorded. Medication Orders None recorded. Patient TargetsNo targets recorded. Patient InstructionsNo instructions recorded. Reason for Referral Orthopedic Surgeon Referral for Pain of left shoulder joint Referring Physician: Dandre Huffman, Internal Medicine, Encounter Date: 12/07/2022 Results Created Date Observation Date Name Description Value Unit Range Abnormal Flag Note LastModifiedBy Organization Detail LastModifiedTime 09/08/19 22 09/11/2021 TESTO STERO NE, FREE+ TOTAL LC/MS testosterone , total, lc/MS 173.5 NG/dL 264.0- 916.0 low This [facility] rp LC/MS -MS metho d is curre ntesther certi fied by the CDC Hormo ne Stand ardiz ation Progr am (HoSt ). Adult male refer ence inter cayetano is based on a popul ation of healt hy nonob jimena males (BMI <30) betwe en 19 and 39 years old. Mahad kamara et.al . JCEM 2017, 102;1 161-1 173. PMID: 74132 103. Not Available [facility] (Lab) [address] [place], [address], 09/11/2021 20:07:53 09/08/19 22 09/11/2021 TESTO STERO NE, FREE+ TOTAL LC/MS testosterone , free 4.93 NG/dL 5.00-2 1.00 low Not Available [facility] (Lab) [address] [place], [address], 09/11/2021 20:07:53 09/08/19 22 09/11/2021 TESTO STERO NE, FREE+ TOTAL LC/MS % free testosterone 2.84 % 1.50-4 .20 [facility]: [facility] [place] [address] [facility] , [place] [address] [address] Lab Direc tor: Martha mesa MD, Phone : [phone] Not Available [facility] (Lab) [address] [place], [address], 09/11/2021 20:07:53 09/08/19 22 09/07/2021 TSH thyroid-stim ulating hormone 1.950 uIU/m L 0.465- 4.680 Not Available [facility] (Lab) [address] [place], [address], 09/07/2021 14:29:35 09/08/19 22 09/07/2021 T4 FREE free T4 0.99 NG/dL 0.78-2 .19 Not Available [facility] (Lab) [address] [place] [address], [address], 09/07/2021 14:13:04 09/08/19 22 09/07/2021 T3 FREE free T3 3.0 pg/mL 2.77-5 .27 Not Available [facility] (Lab) [address] [place] [address], [address], 09/07/2021 14:13:03 09/08/19 22 09/07/2021 LIPID PANEL cholesterol 176 mg/dL 140-19 9 NIH SAMMY NSUS RECOM MENDA TION FOR LACIE STERO L: ADULT CHILD LOW RISK: <200 <170 BORDE RLINE : <200- 239 ----- HIGH RISK: >240 >200 Not Available [facility] (Lab) [address] [place] [address], [address], 09/07/2021 13:52:14 09/08/19 22 09/07/2021 LIPID PANEL triglyceride s 102 mg/dL 0-150 NIH SAMMY NSUS REPOR T RECOM MENDA TION FOR TRIGL YCERI MARYANA: ADULT CHILD LOW RISK: <150 ----- BODER LINE: 150-1 99 ----- HIGH RISK: >200 ----- Not Available [facility] (Lab) [address] [place] [address], [address], 09/07/2021 13:52:14 09/08/19 22 09/07/2021 LIPID PANEL HDL cholesterol 56 mg/dL 40- Not Available [facility] (Lab) [address] [place] [address], [address], 09/07/2021 13:52:14 09/08/19 22 09/07/2021 LIPID PANEL LDL cholesterol, calculated 100 mg/dL 0-130 NIH SAMMY NSUS REPOR T RECOM MENDA TIONS FOR LDL: ADULT CHILD LOW RISK <130 <110 (OPTI MAL LDL) <100 ----- ZOEY RLINE : 130-1 59 ----- HIGH RISK: >160 >130 A TRIGL YCERI DE RESUL T >400 INVAL IDATE S THE CALCU LATIO N FOR LDL FRACT IONAT ION - THE LDL RESUL T WILL NOT BE REPOR KRISTIN. Not Available [facility] (Lab) [address] [place], [address], 09/07/2021 13:52:14 09/08/19 22 09/07/2021 COMPR EHENS NADYA METAB OLIC PANEL sodium 141 mmol/ L 137-14 5 Not Available [facility] (Lab) [address] [place], [address], 09/07/2021 13:52:11 09/08/19 22 09/07/2021 COMPR EHENS NADYA METAB OLIC PANEL potassium 4.7 mmol/ L 3.5-5. 1 Not Available [facility] (Lab) [address] [place], [address], 09/07/2021 13:52:11 09/08/19 22 09/07/2021 COMPR EHENS NADYA METAB OLIC PANEL chloride 109 mmol/ L 98-107 high Not Available [facility] (Lab) [address] [place], [address], 09/07/2021 13:52:11 09/08/19 22 09/07/2021 COMPR EHENS NADYA METAB OLIC PANEL carbon dioxide 24 mmol/ L 22-30 Not Available [facility] (Lab) [address] [place], [address], 09/07/2021 13:52:11 09/08/19 22 09/07/2021 COMPR EHENS NADYA METAB OLIC PANEL anion gap 12.7 mmol/ L 14-22 low Not Available [facility] (Lab) [address] [place], [address], 09/07/2021 13:52:11 09/08/19 22 09/07/2021 COMPR EHENS NADYA METAB OLIC PANEL glucose 110 mg/dL 70-99 high Not Available [facility] (Lab) [address] [place], [address], 09/07/2021 13:52:11 09/08/19 22 09/07/2021 COMPR EHENS NADYA METAB OLIC PANEL BUN 16 mg/dL 8-19 Not Available [facility] (Lab) [address] [place], [address], 09/07/2021 13:52:11 09/08/19 22 09/07/2021 COMPR EHENS NADYA METAB OLIC PANEL creatinine 0.86 mg/dL 0.66-1 .25 Not Available [facility] (Lab) [address] [place], [address], 09/07/2021 13:52:11 09/08/19 22 09/07/2021 COMPR EHENS NADYA METAB OLIC PANEL GFR >60 Refer ence Range : Scott ge GFR Healt hy Adult : >60 mL/mi n/1.7 3 m2 Chron ic Kidne y Disea se: 15-60 mL/mi n/1.7 3 m2 Kidne y Failu re: <15/m L/min /1.73 m2 www.n iddk. nih.g ov The MDRD study equat ion has not been valid ated in child varghese <18 years of age; pregn ant women ; the elder ly >85 years of age; or in some racia l or ethni c subgr oups, such as Hismo nics. Outsi de the valid ated steph eters , estim ated GFR is less accur ate, requi ring clini jose judgm ent on a case- by-ca se basis . Clini jose inter preta tion for other races and ages must be made by the clini nora. The MDRD study equat ion has not been valid ated for the evalu ation of serum creat inine relat ed to nutri ravinder l statu s or medic ation usage . For perso ns <18 years of age, a pedia tric GFR calcu lator is avail able on the [facility] websi te: https ://alberto w.vanesa henning.o walker/pr ofess ional s/kdo qi/gf r_cal culat or Not Available [facility] (Lab) [address] [place], [address], 09/07/2021 13:52:11 09/08/19 22 09/07/2021 COMPR EHENS NADYA METAB OLIC PANEL alkaline phosphatase 64 U/L 38-126 Not Available [facility] (Lab) [address] [place], [address], 09/07/2021 13:52:11 09/08/19 22 09/07/2021 COMPR EHENS NADYA METAB OLIC PANEL alanine aminotransfe rase 28 U/L 0-50 Not Available [facility] (Lab) [address] [place], [address], 09/07/2021 13:52:11 09/08/19 22 09/07/2021 COMPR EHENS NADYA METAB OLIC PANEL aspartate aminotransfe rase 24 U/L 15-46 Not Available [facility] (Lab) [address] [place], [address], 09/07/2021 13:52:11 09/08/19 22 09/07/2021 COMPR EHENS NADYA METAB OLIC PANEL bilirubin, total 0.90 mg/dL 0.20-1 .30 Not Available [facility] (Lab) [address] [place], [address], 09/07/2021 13:52:11 09/08/19 22 09/07/2021 COMPR EHENS NADYA METAB OLIC PANEL calcium 9.2 mg/dL 8.4-10 .2 Not Available [facility] (Lab) [address] [place], [address], 09/07/2021 13:52:11 09/08/19 22 09/07/2021 COMPR EHENS NADYA METAB OLIC PANEL total protein 6.6 g/dL 6.3-8. 2 Not Available [facility] (Lab) [address] [place], [address], 09/07/2021 13:52:11 09/08/19 22 09/07/2021 COMPR EHENS NADAY METAB OLIC PANEL albumin 4.1 g/dL 3.0-4. 4 Not Available [facility] (Lab) [address] [place], [address], 09/07/2021 13:52:11 09/08/19 22 09/07/2021 COMPR EHENS NADYA METAB OLIC PANEL globulin 2.5 g/dL 2.6-4. 2 low Not Available [facility] (Lab) [address] [place], [address], 09/07/2021 13:52:11 09/08/19 22 09/07/2021 COMPR EHENS NADYA METAB OLIC PANEL A/G ratio 1.6 ratio 1.0-2. 0 Not Available [facility] (Lab) [address] [place], [address], 09/07/2021 13:52:11 09/08/19 22 09/07/2021 CBC/C OMPLE TE BLD COUNT W/DIF F white blood cells 7.9 x10'3 /uL 4.2-10 .8 Not Available [facility] (Lab) [address] [place], [address], 09/07/2021 12:31:57 09/08/19 22 09/07/2021 CBC/C OMPLE TE BLD COUNT W/DIF F red blood cells 4.92 x10'6 /uL 4.10-5 .80 Not Available [facility] (Lab) [address] [place], [address], 09/07/2021 12:31:57 09/08/19 22 09/07/2021 CBC/C OMPLE TE BLD COUNT W/DIF F hemoglobin 14.7 g/dL 13.2-1 7.0 Not Available [facility] (Lab) [address] [place], [address], 09/07/2021 12:31:57 09/08/19 22 09/07/2021 CBC/C OMPLE TE BLD COUNT W/DIF F hematocrit 43.9 % 39.3-5 0.0 Not Available [facility] (Lab) [address] [place], [address], 09/07/2021 12:31:57 09/08/19 22 09/07/2021 CBC/C OMPLE TE BLD COUNT W/DIF F mean red cell volume 89.2 fL 80.0-9 7.0 Not Available [facility] (Lab) [address] [place], [address], 09/07/2021 12:31:57 09/08/19 22 09/07/2021 CBC/C OMPLE TE BLD COUNT W/DIF F mean red cell hemoglobin 29.9 pg 27.0-3 3.0 Not Available [facility] (Lab) [address] [place], [address], 09/07/2021 12:31:57 09/08/19 22 09/07/2021 CBC/C OMPLE TE BLD COUNT W/DIF F mean RBC HGB concentratio n 33.5 g/dL 31.0-3 6.0 Not Available [facility] (Lab) [address] [place], [address], 09/07/2021 12:31:57 09/08/19 22 09/07/2021 CBC/C OMPLE TE BLD COUNT W/DIF F red cell distribution width 12.8 % 11.8-1 5.5 Not Available [facility] (Lab) [address] [place], [address], 09/07/2021 12:31:57 09/08/19 22 09/07/2021 CBC/C OMPLE TE BLD COUNT W/DIF F platelets 209 x10'3 /uL 150-40 0 Not Available [facility] (Lab) [address] [place], [address], 09/07/2021 12:31:57 09/08/19 22 09/07/2021 CBC/C OMPLE TE BLD COUNT W/DIF F mean platelet volume 12.0 fL 9.0-12 .4 Not Available [facility] (Lab) [address] [place], [address], 09/07/2021 12:31:57 09/08/19 22 09/07/2021 CBC/C OMPLE TE BLD COUNT W/DIF F neutrophils 67.2 % 39.0-7 2.0 Not Available [facility] (Lab) [address] [place], [address], 09/07/2021 12:31:57 09/08/19 22 09/07/2021 CBC/C OMPLE TE BLD COUNT W/DIF F lymphocytes 19.5 % 16.0-4 7.0 Not Available [facility] (Lab) [address] [place], [address], 09/07/2021 12:31:57 09/08/19 22 09/07/2021 CBC/C OMPLE TE BLD COUNT W/DIF F monocytes 9.4 % 5.0-12 .0 Not Available [facility] (Lab) [address] [place], [address], 09/07/2021 12:31:57 09/08/19 22 09/07/2021 CBC/C OMPLE TE BLD COUNT W/DIF F eosinophils 3.1 % 1.0-7. 0 Not Available [facility] (Lab) [address] [place], [address], 09/07/2021 12:31:57 09/08/19 22 09/07/2021 CBC/C OMPLE TE BLD COUNT W/DIF F basophils 0.5 % 0.0-2. 0 Not Available [facility] (Lab) [address] [facility] [place], [address], 09/07/2021 12:31:57 09/08/19 22 09/07/2021 CBC/C OMPLE TE BLD COUNT W/DIF F immature granulocytes 0.3 % 0.00-0 .50 Not Available [facility] (Lab) [address] [place], [address], 09/07/2021 12:31:57 09/08/19 22 09/07/2021 CBC/C OMPLE TE BLD COUNT W/DIF F neutrophils, absolute count 5.28 x10'3 /uL 1.5-8. 0 Not Available [facility] (Lab) [address] [place], [address], 09/07/2021 12:31:57 09/08/19 22 09/07/2021 CBC/C OMPLE TE BLD COUNT W/DIF F lymphocytes, absolute count 1.53 x10'3 /uL 1.07-3 .43 Not Available [facility] (Lab) [address] [place], [address], 09/07/2021 12:31:57 09/08/19 22 09/07/2021 CBC/C OMPLE TE BLD COUNT W/DIF F monocytes, absolute count 0.74 x10'3 /uL 0.29-0 .99 Not Available [facility] (Lab) [address] [place], [address], 09/07/2021 12:31:57 09/08/19 22 09/07/2021 CBC/C OMPLE TE BLD COUNT W/DIF F eosinophils, absolute count 0.24 x10'3 /uL 0.02-0 .53 Not Available [facility] (Lab) [address] [place], [address], 09/07/2021 12:31:57 09/08/19 22 09/07/2021 CBC/C OMPLE TE BLD COUNT W/DIF F basophils, absolute count 0.04 x10'3 /uL 0.01-0 .08 Not Available [facility] (Lab) [address] [place], [address], 09/07/2021 12:31:57 09/08/19 22 09/07/2021 CBC/C OMPLE TE BLD COUNT W/DIF F immature granulocytes ,absolute 0.02 x10'3 /uL 0.00-0 .05 Not Available [facility] (Lab) [address] [place], [address], 09/07/2021 12:31:57 09/08/19 22 09/07/2021 CBC/C OMPLE TE BLD COUNT W/DIF F nucleated red blood cells 0.0 % -0 Not Available [facility] (Lab) [address] [place], [address], 09/07/2021 12:31:57 09/08/19 22 09/07/2021 CBC/C OMPLE TE BLD COUNT W/DIF F NRBC# 0.00 x10'3 /uL Not Available [facility] (Lab) [address] [place], [address], 09/07/2021 12:31:57 02/29/20 22 02/28/2022 PSA, TOTAL PSA, total 2.53 NG/mL 0.00-4 .00 Not Available [facility] (Lab) [address] [place], [address], 02/28/2022 21:11:51 02/29/20 22 02/28/2022 COMPR EHENS NADYA METAB OLIC PANEL sodium 139 mmol/ L 137-14 5 Not Available [facility] (Lab) [address] [place], [address], 02/28/2022 20:59:14 02/29/20 22 02/28/2022 COMPR EHENS NADYA METAB OLIC PANEL potassium 4.7 mmol/ L 3.5-5. 1 Not Available [facility] (Lab) [address] [place], [address], 02/28/2022 20:59:14 02/29/20 22 02/28/2022 COMPR EHENS NADYA METAB OLIC PANEL chloride 103 mmol/ L 98-107 Not Available [facility] (Lab) [address] [place], [address], 02/28/2022 20:59:14 02/29/20 22 02/28/2022 COMPR EHENS NADYA METAB OLIC PANEL carbon dioxide 27 mmol/ L 22-30 Not Available [facility] (Lab) [address] [place], [address], 02/28/2022 20:59:14 02/29/20 22 02/28/2022 COMPR EHENS NADYA METAB OLIC PANEL anion gap 13.7 mmol/ L 14-22 low Not Available [facility] (Lab) [address] [place], [address], 02/28/2022 20:59:14 02/29/20 22 02/28/2022 COMPR EHENS NADYA METAB OLIC PANEL glucose 92 mg/dL 70-99 Not Available [facility] (Lab) [address] [place], [address], 02/28/2022 20:59:14 02/29/20 22 02/28/2022 COMPR EHENS NADYA METAB OLIC PANEL BUN 15 mg/dL 8-19 Not Available [facility] (Lab) [address] [place], [address], 02/28/2022 20:59:14 02/29/20 22 02/28/2022 COMPR EHENS NADYA METAB OLIC PANEL creatinine 0.79 mg/dL 0.66-1 .25 Not Available [facility] (Lab) [address] [place], [address], 02/28/2022 20:59:14 02/29/20 22 02/28/2022 COMPR EHENS NADYA METAB OLIC PANEL GFR >60 Refer ence Range : Scott ge GFR Healt hy Adult : >60 mL/mi n/1.7 3 m2 Chron ic Kidne y Disea se: 15-60 mL/mi n/1.7 3 m2 Kidne y Failu re: <15/m L/min /1.73 m2 www.n iddk. nih.g ov The MDRD study equat ion has not been valid ated in child varghese <18 years of age; pregn ant women ; the elder ly >85 years of age; or in some racia l or ethni c subgr oups, such as Hispa nics. Outsi de the valid ated steph eters , estim ated GFR is less accur ate, requi ring clini jose judgm ent on a case- by-ca se basis . Clini jose inter preta tion for other races and ages must be made by the clini nora. The MDRD study equat ion has not been valid ated for the evalu ation of serum creat inine relat ed to nutri ravinder l statu s or medic ation usage . For perso ns <18 years of age, a pedia tric GFR calcu lator is avail able on the [facility] websi te: https ://alberto w.vanesa henning.o rg/pr ofess ional s/kdo qi/gf r_cal culat or Not Available [facility] (Lab) [address] [place], [address], 02/28/2022 20:59:14 02/29/20 22 02/28/2022 COMPR EHENS NADYA METAB OLIC PANEL alkaline phosphatase 69 U/L 38-126 Not Available [facility] (Lab) [address] [place], [address], 02/28/2022 20:59:14 02/29/20 22 02/28/2022 COMPR EHENS NADYA METAB OLIC PANEL alanine aminotransfe rase 26 U/L 0-50 Not Available [facility] (Lab) [address] [place], [address], 02/28/2022 20:59:14 02/29/20 22 02/28/2022 COMPR EHENS NADYA METAB OLIC PANEL aspartate aminotransfe rase 21 U/L 15-46 Not Available [facility] (Lab) [address] [place], [address], 02/28/2022 20:59:14 02/29/20 22 02/28/2022 COMPR EHENS NADYA METAB OLIC PANEL bilirubin, total 1.30 mg/dL 0.20-1 .30 Not Available [facility] (Lab) [address] [place], [address], 02/28/2022 20:59:14 02/29/20 22 02/28/2022 COMPR EHENS NADYA METAB OLIC PANEL calcium 9.2 mg/dL 8.4-10 .2 Not Available [facility] (Lab) [address] [place], [address], 02/28/2022 20:59:14 02/29/20 22 02/28/2022 COMPR EHENS NADYA METAB OLIC PANEL total protein 6.6 g/dL 6.3-8. 2 Not Available [facility] (Lab) [address] [place], [address], 02/28/2022 20:59:14 02/29/20 22 02/28/2022 COMPR EHENS NADYA METAB OLIC PANEL albumin 4.2 g/dL 3.0-4. 4 Not Available [facility] (Lab) [address] [place], [address], 02/28/2022 20:59:14 02/29/20 22 02/28/2022 COMPR EHENS NADYA METAB OLIC PANEL globulin 2.4 g/dL 2.6-4. 2 low Not Available [facility] (Lab) [address] [place], [address], 02/28/2022 20:59:14 02/29/20 22 02/28/2022 COMPR EHENS NADYA METAB OLIC PANEL A/G ratio 1.8 ratio 1.0-2. 0 Not Available [facility] (Lab) [address] [place], [address], 02/28/2022 20:59:14 02/29/20 22 02/28/2022 LIPID PANEL cholesterol 164 mg/dL 140-19 9 NIH SAMMY NSUS RECOM MENDA TION FOR LACIE STERO L: ADULT CHILD LOW RISK: <200 <170 BORDE RLINE : <200- 239 ----- HIGH RISK: >240 >200 Not Available [facility] (Lab) [address] [place], [address], 02/28/2022 20:59:06 02/29/20 22 02/28/2022 LIPID PANEL triglyceride s 101 mg/dL 0-150 NIH SAMMY NSUS REPOR T RECOM MENDA TION FOR TRIGL YCERI MARYANA: ADULT CHILD LOW RISK: <150 ----- BODER LINE: 150-1 99 ----- HIGH RISK: >200 ----- Not Available [facility] (Lab) [address] [place], [address], 02/28/2022 20:59:06 02/29/20 22 02/28/2022 LIPID PANEL HDL cholesterol 66 mg/dL 40- Not Available [facility] (Lab) [address] [place] [address], [address], 02/28/2022 20:59:06 02/29/20 22 02/28/2022 LIPID PANEL LDL cholesterol, calculated 78 mg/dL 0-130 NIH SAMMY NSUS REPOR T RECOM MENDA TIONS FOR LDL: ADULT CHILD LOW RISK <130 <110 (OPTI MAL LDL) <100 ----- BORDE RLINE : 130-1 59 ----- HIGH RISK: >160 >130 A TRIGL YCERI DE RESUL T >400 INVAL IDATE S THE CALCU LATIO N FOR LDL FRACT IONAT ION - THE LDL RESUL T WILL NOT BE REPOR KRISTIN. Not Available [facility] (Lab) [address] [place], [address], 02/28/2022 20:59:06 02/29/20 22 02/28/2022 CBC/C OMPLE TE BLD COUNT W/DIF F white blood cells 8.4 x10'3 /uL 4.2-10 .8 Not Available [facility] (Lab) [address] [place], [address], 02/28/2022 19:32:14 02/29/20 22 02/28/2022 CBC/C OMPLE TE BLD COUNT W/DIF F red blood cells 5.13 x10'6 /uL 4.10-5 .80 Not Available [facility] (Lab) [address] [place], [address], 02/28/2022 19:32:14 02/29/20 22 02/28/2022 CBC/C OMPLE TE BLD COUNT W/DIF F hemoglobin 14.9 g/dL 13.2-1 7.0 Not Available [facility] (Lab) [address] [place], [address], 02/28/2022 19:32:14 02/29/20 22 02/28/2022 CBC/C OMPLE TE BLD COUNT W/DIF F hematocrit 45.7 % 39.3-5 0.0 Not Available [facility] (Lab) [address] [place], [address], 02/28/2022 19:32:14 02/29/20 22 02/28/2022 CBC/C OMPLE TE BLD COUNT W/DIF F mean red cell volume 89.1 fL 80.0-9 7.0 Not Available [facility] (Lab) [address] [place], [address], 02/28/2022 19:32:14 02/29/20 22 02/28/2022 CBC/C OMPLE TE BLD COUNT W/DIF F mean red cell hemoglobin 29.0 pg 27.0-3 3.0 Not Available [facility] (Lab) [address] [place], [address], 02/28/2022 19:32:14 02/29/20 22 02/28/2022 CBC/C OMPLE TE BLD COUNT W/DIF F mean RBC HGB concentratio n 32.6 g/dL 31.0-3 6.0 Not Available [facility] (Lab) [address] [place], [address], 02/28/2022 19:32:14 02/29/20 22 02/28/2022 CBC/C OMPLE TE BLD COUNT W/DIF F red cell distribution width 12.5 % 11.8-1 5.5 Not Available [facility] (Lab) [address] [facility] [place], [address], 02/28/2022 19:32:14 02/29/20 22 02/28/2022 CBC/C OMPLE TE BLD COUNT W/DIF F platelets 235 x10'3 /uL 150-40 0 Not Available [facility] (Lab) [address] [place], [address], 02/28/2022 19:32:14 02/29/20 22 02/28/2022 CBC/C OMPLE TE BLD COUNT W/DIF F mean platelet volume 11.9 fL 9.0-12 .4 Not Available [facility] (Lab) [address] [place], [address], 02/28/2022 19:32:14 02/29/20 22 02/28/2022 CBC/C OMPLE TE BLD COUNT W/DIF F neutrophils 64.4 % 39.0-7 2.0 Not Available [facility] (Lab) [address] [place], [address], 02/28/2022 19:32:14 02/29/20 22 02/28/2022 CBC/C OMPLE TE BLD COUNT W/DIF F lymphocytes 22.9 % 16.0-4 7.0 Not Available [facility] (Lab) [address] [place], [address], 02/28/2022 19:32:14 02/29/20 22 02/28/2022 CBC/C OMPLE TE BLD COUNT W/DIF F monocytes 9.1 % 5.0-12 .0 Not Available [facility] (Lab) [address] [place], [address], 02/28/2022 19:32:14 02/29/20 22 02/28/2022 CBC/C OMPLE TE BLD COUNT W/DIF F eosinophils 2.6 % 1.0-7. 0 Not Available [facility] (Lab) [address] [place], [address], 02/28/2022 19:32:14 02/29/20 22 02/28/2022 CBC/C OMPLE TE BLD COUNT W/DIF F basophils 0.6 % 0.0-2. 0 Not Available [facility] (Lab) [address] [place], [address], 02/28/2022 19:32:14 02/29/20 22 02/28/2022 CBC/C OMPLE TE BLD COUNT W/DIF F immature granulocytes 0.4 % 0.00-0 .50 Not Available [facility] (Lab) [address] [place], [address], 02/28/2022 19:32:14 02/29/20 22 02/28/2022 CBC/C OMPLE TE BLD COUNT W/DIF F neutrophils, absolute count 5.43 x10'3 /uL 1.5-8. 0 Not Available [facility] (Lab) [address] [place], [address], 02/28/2022 19:32:14 02/29/20 22 02/28/2022 CBC/C OMPLE TE BLD COUNT W/DIF F lymphocytes, absolute count 1.93 x10'3 /uL 1.07-3 .43 Not Available [facility] (Lab) [address] [place], [address], 02/28/2022 19:32:14 02/29/20 22 02/28/2022 CBC/C OMPLE TE BLD COUNT W/DIF F monocytes, absolute count 0.77 x10'3 /uL 0.29-0 .99 Not Available [facility] (Lab) [address] [place], [address], 02/28/2022 19:32:14 02/29/20 22 02/28/2022 CBC/C OMPLE TE BLD COUNT W/DIF F eosinophils, absolute count 0.22 x10'3 /uL 0.02-0 .53 Not Available [facility] (Lab) [address] [place], [address], 02/28/2022 19:32:14 02/29/20 22 02/28/2022 CBC/C OMPLE TE BLD COUNT W/DIF F basophils, absolute count 0.05 x10'3 /uL 0.01-0 .08 Not Available [facility] (Lab) [address] [place], [address], 02/28/2022 19:32:14 02/29/20 22 02/28/2022 CBC/C OMPLE TE BLD COUNT W/DIF F immature granulocytes ,absolute 0.03 x10'3 /uL 0.00-0 .05 Not Available [facility] (Lab) [address] [place], [address], 02/28/2022 19:32:14 02/29/20 22 02/28/2022 CBC/C OMPLE TE BLD COUNT W/DIF F nucleated red blood cells 0.0 % -0 Not Available [facility] (Lab) [address] [place], [address], 02/28/2022 19:32:14 02/29/20 22 02/28/2022 CBC/C OMPLE TE BLD COUNT W/DIF F NRBC# 0.00 x10'3 /uL Not Available [facility] (Lab) [address] [place], [address], 02/28/2022 19:32:14 06/29/19 23 06/28/2022 XR, knee No observ ation record ed. [address] [id number], [place], [address], 12/11/2022 14:00:39 11/09/19 23 11/08/2022 CT, abdom en + pelvi s, w/o contr ast No observ ation record ed. [address] [address], [place], [address], 12/11/2022 14:01:03 11/09/19 23 11/08/2022 XR, abdom en No observ ation record ed. [address] [address], [place], [address], 12/11/2022 14:01:33 11/14/19 23 11/13/2022 XR, abdom en No observ ation record ed. 03 [facility] [address], [place], [address], 12/11/2022 14:01:57 11/15/19 23 11/13/2022 CT, abdom en + pelvi s, w/wo contr ast No observ ation record ed. [address] [facility] [address], [place], [address], 12/11/2022 14:03:09 11/24/19 23 11/23/2022 XR, abdom en + pelvi s No observ ation record ed. [email or web address] [address], [place], [address], 12/11/2022 14:06:09 12/28/19 23 12/27/2022 XR, shoul janay No observ ation record ed. [address], [place], [address], 02/17/2023 12:58:44 03/03/20 23 03/03/2023 MRI, shoul janay, w/o contr ast No observ ation record ed. [address], [place], [address], 03/23/2023 21:56:04 05/22/19 24 05/22/2023 XR, kidne y + urete r + bladd er No observ ation record ed. [email or web address] [address], [place], [address], 06/28/2023 14:05:08 Result Notes None recorded. Problems Name Problem SNOMED Code Status Onset Date Resolution Date Notes Provider Name and Address Organization Details Recorded Time Pain of left shoulder joint 85102254449 664182 Active 2022 BRENDAN Carr, [place] - [facility] 3 12:38:52 Edema of lower extremity 474613051 Active 2022 BRENDAN Carr, [place] - [facility] 3 12:38:52 Benign essential hypertens ion 5493813 Active BRENDAN Carr, [place] [facility] 3 12:38:52 Nocturia 986565545 Active 2021 BRENDAN Carr, [place] [facility] 3 12:38:52 Respirato ry symptom 441144655 Completed Not Available [facility] 3 04:53:04 Headache 49430639 Active Clarcuong Yahl, RMA null, [place] - [facility] 3 12:38:52 Benign prostatic hyperplas ia 876629911 Active 2021 Claria Yahl, RMA null, [place] [facility] 3 12:38:52 Pure hyperchol esterolem ia 422621976 Active Claria Yahl, RMA null[place] [facility] 3 12:38:52 Low back pain 927658198 Active Claria Yahl, RMA null[place] [facility] 3 12:38:52 Lump on thigh 254429275 Completed Not Available [facility] 3 04:53:05 Elevated blood-pre ssure reading without diagnosis of hypertens ion 734863404 Active Clarcuong Yahl, RMA null, [place] - [facility] 3 12:38:52 Arthropat hy of joint of hand 104201605 Active Claria Yahl, RMA null, [place] - [facility] 3 12:38:52 Anxiety 82987728 Active 2020 Claria Yahl, RMA null, [place] [facility] 3 12:38:52 Essential hypertens ion 47684382 Active 2020 Jerzyia Yahl, RMA null, [place] [facility] 3 12:38:52 Dyspnea on exertion 85615436 Active Claria Yahl, RMA null[place] - [facility] 3 12:38:52 Allergic rhinitis 83721196 Active Claria Yahl, RMA null[place] [facility] 3 12:38:52 Obstructi ve sleep apnea syndrome 21999106 Active Claria Yahl, RMA null[place] [facility] 3 12:38:52 Fatigue 60462824 Active 2021 Claria Yahl, RMA null[place] [facility] 3 12:38:52 Chronic rhinitis 78890115 Completed Not Available [facility] 04:53:05 Pain in limb 86131808 Active BRENDAN Carr, [facility] 3 12:38:52 Skin lesion 84271662 Completed Not Available [facility] 04:53:06 Problem Notes None recorded. Procedures Surgical History Date Name Laterality Status Provider Name and Address Organization Details Recorded Time 10/05/19 18 Colonoscopy completed Not Available [facility] 05/18/19 04:42:34 04/30/19 14 Exc thigh/knee les sc < 3 cm completed Not Available [facility] 05/17/2022 04:42:34 09/18/19 08 Colonoscopy completed Not Available [facility] 05/18/19 04:42:34 other completed Not Available [facility] 03/2022 04:42:34 procedure on nasal septum completed Not Available [facility] 05/17/2022 04:42:34 endoscopic balloon dilation of ostium of paranasal sinus completed Not Available [facility] 05/17/2022 04:42:34 Dental completed Not Available [facility] 03/2022 04:42:34 Tonsillectomy completed Not Available [facility] 05/17/2022 04:42:34 Imaging Results Imaging Date Name Status LastModified by Organiz ation Details LastModified Time 06/28/2022 XR, knee completed [email or web address] [address], [address], 12/11/2022 14:00:39 11/08/2022 CT, abdomen + pelvis, w/o contrast completed [email or web address] [address], [address], 12/11/2022 14:01:03 11/08/2022 XR, abdomen completed [email or web address] [address], [address], 12/11/2022 14:01:33 11/13/2022 XR, abdomen completed [email or web address] [facility] [address], [place], [address], 12/11/2022 14:01:57 11/13/2022 CT, abdomen + pelvis, w/wo contrast completed [address] [facility] [address], [place], [address], 12/11/2022 14:03:09 11/23/2022 XR, abdomen + pelvis completed [address] [place] [address], [address], 12/11/2022 14:06:09 12/27/2022 XR, shoulder completed [address] [facility], [place], [address], 02/17/2023 12:58:44 03/03/2023 MRI, shoulder, w/o contrast completed [address] [facility], [place], [address], 03/23/2023 21:56:04 05/22/2023 XR, kidney + ureter + bladder completed [email or web address] [place] [address] [address] [facility], [place], [address], 06/28/2023 14:05:08 Procedure Notes None recorded. Medical Equipment None Reported. Allergies No known drug allergies Medications Name Sig Start Date Stop Date Status Note LastModified by Organization Details LastModified Time prednisone 10 mg tablet TAKE 4 TABLETS BY MOUTH EVERY MORNING. START DAY BEFORE PROCEDURE 12/07 completed Not Available Not Available Not Available Ceftin 500 mg tablet Take 1 tablet every 12 hours by oral route for 7 days. 04/23 completed Not Available Not Available Not Available azithromyci n 250 mg tablet zpak as directed 08/14 completed Not Available Not Available Not Available tizanidine 4 mg tablet Take 1 tablet every day by oral route at bedtime. active Not Available Not Available No t Available hydrocodone 5 mg-acetamin ophen 325 mg tablet TAKE 1 TABLET BY MOUTH EVERY 6 HOURS NEEDED FOR PAIN 12/07 completed Not Available Not Available Not Available prednisone 20 mg tablet Take 2 tablets every day by oral route for 5 days. active Not Available Not Available No t Available ciprofloxac in 500 mg tablet TK 1 T PO BID FOR 10 DAYS 11/21 completed Not Available Not Available Not Available sulfamethox azole 800 mg-trimetho prim 160 mg tablet TAKE 1 TABLET BY MOUTH TWICE DAILY. START DAY BEFORE PROCEDURE 12/07 completed Not Available Not Available Not Available peg-electro lyte solution 420 gram oral solution 01/01 completed Not Available Not Available Not Available aspirin 81 mg tablet,malinda yed release Take 1 tablet every day by oral route. 2020 active Not Available Not Available Not Avai lable prednisolon e acetate 1 % eye drops,suspe nsion SHAKE LIQUID AND INSTILL 1 DROP IN LEFT EYE FOUR TIMES DAILY FOR 7 DAYS 02/28 completed Not Available Not Available Not Available tamsulosin 0.4 mg capsule TAKE 1 CAPSULE BY MOUTH EVERY DAY AT BEDTIME 2022 active Not Available Not Available Not Avai lable Kenalog 10 mg/mL suspension for injection In office injection administe red by the provider 11/27 completed [facility]: 0003- 0494- 20 Not Available Not Available Not Available hydrocodone 7.5 mg-acetamin ophen 325 mg tablet TAKE 1 TABLET BY MOUTH EVERY 6 HOURS NEEDED FOR PAIN 12/07 completed Not Available Not Available Not Available cephalexin 500 mg capsule TAKE 1 CAPSULE BY MOUTH EVERY 8 HOURS 12/07 completed Not Available Not Available Not Available neomycin-po lymyxin-dex ameth 3.5 mg/mL-10,00 0 unit/mL-0.1 % eye drops 05/04 completed Not Available Not Available Not Available fluoxetine 10 mg capsule TAKE 1 CAPSULE BY MOUTH EVERY DAY 05/10 completed Not Available Not Available Not Available gabapentin 300 mg capsule 06/25 completed Not Available Not Available Not Available montelukast 10 mg tablet TAKE 1 TABLET BY MOUTH EVERY DAY 2022 active Not Available Not Available Not Avai lable hydrochloro thiazide 25 mg tablet TAKE 1 TABLET BY MOUTH EVERY DAY NEEDED 2022 active Not Available Not Available Not Avai lable mupirocin 2 % topical ointment APPLY INTRANASA LLY TWICE DAILY 12/07 completed Not Available Not Available Not Available diazepam 10 mg tablet TAKE 1 TABLET BY MOUTH 90 MINUTES PRIOR TO PROCEDURE . BRING REMAINING TABS WITH YOU TO PROCEDURE AND TAKE PER MD INSTRUCTI ONS 12/07 completed Not Available Not Available Not Available epinephrine 0.3 mg/0.3 mL injection, auto-inject or 10/30 completed Not Available Not Available Not Available methylpredn isolone 4 mg tablets in a dose pack TK UTD 06/21 completed Not Available Not Available Not Available ondansetron 4 mg disintegrat ing tablet DISSOLVE 1 TABLET ON THE TONGUE EVERY 8 HOURS NEEDED FOR NAUSEA OR VOMITING 12/07 completed Not Available Not Available Not Available cefdinir 300 mg capsule 10/29 completed Not Available Not Available Not Available multivitami n capsule 04/13 completed Not Available Not Available Not Available fluticasone propionate 50 mcg/actuati on nasal spray,suspe nsion INSTILL 1 SPRAY IN EACH NOSTRIL EVERY DAY 10/30 completed Not Available Not Available Not Available risperidone 0.5 mg tablet TAKE 1 T PO QD FOR MOOD DISORDER 08/03 completed Not Available Not Available Not Available diazepam 5 mg tablet TK 0.5 TS PO 2 TIMES DAILY 10/29 completed Not Available Not Available Not Available amoxicillin 875 mg-potassiu m clavulanate 125 mg tablet Take 1 tablet every 12 hours by oral route for 10 days. 06/13 completed Not Available Not Available Not Available Fish Oil 10/29 completed Not Available Not Available Not Available lidocaine (PF) 10 mg/mL (1 %) injection solution In office injection administe red by the provider 11/27 completed [facility]: 0409- 4276- 17 Not Available Not Available Not Available PreviDent 5000 Sensitive 1.1 %-5 % dental paste 05/04 completed Not Available Not Available Not Available PreserVisio n Lutein 06/21 completed Not Available Not Available Not Available levocetiriz ine 5 mg tablet 09/13 completed Not Available Not Available Not Available Osteo Bi-Flex 12/18 completed Not Available Not Available Not Available glucosamine 116 mg-chondroi tin 100 mg-dietary supplement #25 capsule QD 10/30 completed Not Available Not Available Not Available Fluvirin 4600-7320 45 mcg (15 mcg x 3)/0.5 mL intramuscul ar suspension INJECT 0.5 ML INTRAMUSC ULARLY DIRECTED. active Not Available Not Available No t Available Fluzone High-Dose (PF) 180 mcg/0.5 mL intramuscul ar syringe active Not Available Not Available N ot Available Fluzone High-Dose 5996-2050 (PF) 180 mcg/0.5 mL intramuscul ar syringe ADM 0.5ML IM UTD 05/04 completed Not Available Not Available Not Available Fluzone High-Dose 9039-9965 (PF) 180 mcg/0.5 mL intramuscul ar syringe ADM 0.5ML IM UTD 06/21 completed Not Available Not Available Not Available Shingrix (PF) 50 mcg/0.5 mL intramuscul ar suspension, kit 10/29 completed Not Available Not Available Not Available Fluzone High-Dose 6508-0887 (PF) 180 mcg/0.5 mL intramuscul ar syringe ADM 0.5ML IM UTD 01/01 completed Not Available Not Available Not Available Fluzone High-Dose (PF) 180 mcg/0.5 mL intramuscul ar syringe ADM 0.5ML IM UTD 04/24 completed Not Available Not Available Not Available Fluad Quad 6850-0873(6 5yr up)(PF) 60 mcg (15 mcg x 4)/0.5mL IM syringe ADM 0.5ML IM UTD 08/03 completed Not Available Not Available Not Available Vitals Date Recorded Body mass index (BMI) Body mass index (BMI) Body mass index (BMI) Body height Body height Body height Pain severity - 0-10 verbal numeric rating [Score] - Reported Heart rate Heart rate Heart rate Body temperature Body temperature Body temperature Body weight Body weight Body weight Systolic blood pressure Diastolic blood pressure Systolic blood pressure Diastolic blood pressure Systolic blood pressure Diastolic blood pressure Provider Name and Address Organization Details Last Updated DateTime 3 34.7 kg/m2 34.9 kg/m2 34 kg/m2 180.34 cm 180.34 cm 180.34 cm 0 78 /min 72 /min 63 /min 97.9 [degF] 96.4 [degF] 98.3 [degF] 922244. 5 g 772561. 09 g 935880. 54 g 136 mm[Hg] 70 mm[Hg] 150 mm[Hg] 80 mm[Hg] 132 mm[Hg] 78 mm[Hg] Not Available [facility] 3 04:45:35 Date Recorded Body height Body mass index (BMI) Body weight Body temperature Heart rate Systolic blood pressure Diastolic blood pressure Provider Name and Address Organization Details Last Updated DateTime 3 180.34 cm 35.1 kg/m2 942781. 28 g 97.6 [degF] 67 /min 156 mm[Hg] 82 mm[Hg] BRENDAN Mccauley [facility] 3 12:34:10 Date Recorded Body height Body mass index (BMI) Body weight Body temperature Heart rate Systolic blood pressure Diastolic blood pressure Provider Name and Address Organization Details Last Updated DateTime 3 180.34 cm 35.6 kg/m2 698597. 05 g 97.3 [degF] 71 /min 130 mm[Hg] 82 mm[Hg] BRENDAN Mccauley [facility] 3 11:42:02 Social History Question Answer Notes LastModified by Organization Details LastModified Time Tobacco Smoking Status Never Smoker Not Available [facility] 05/17/2022 04:19:55 Do You Have An Advance Directive? No MIGRATION.0301 [id number] Information not available 05/17/2022 What Is Your Level Of Alcohol Consumption? Occasional MIGRATION.030 743527 Information not available 05/17/2022 Are You Blind Or Do You Have Difficulty Seeing? No MIGRATION.0301 596099 Information not available 05/17/2022 What Is Your Level Of Caffeine Consumption? Occasional MIGRATION.0301 479517 Information not available 05/17/2022 How Much Tobacco Do You Chew? None MIGRATION.0301 789653 Information not available 05/17/2022 In The 14 Days Before Symptom Onset, Have You Had Close Contact With A Laboratory-conf irmed COVID-19 While That Case Was Ill? No MIGRATION.030 [id number] Information not available 05/17/2022 In The 14 Days Before Symptom Onset, Have You Had Close Contact With A Person Who Is Under Investigation For COVID-19 While That Person Was Ill? No MIGRATION.0301 071915 Information not available 05/17/2022 Are You Deaf Or Do You Have Serious Difficulty Hearing? No MIGRATION.0301 070678 Information not available 05/17/2022 What Type Of Diet Are You Following? REGULAR MIGRATION.0301 368109 Information not available 05/17/2022 Which Illicit Or Recreational Drugs Have You Used? None MIGRATION.0301 961807 Information not available 05/17/2022 Do You Or Have You Ever Used E-cigarettes Or Vape? Never Used Electronic Cigarettes MIGRATION.0301 638432 Information not available 05/17/2022 What Is The Highest Grade Or Level Of School You Have Completed Or The Highest Degree You Have Received? [id number] MIGRATION.0301 493858 Information not available 05/17/2022 What Is Your Occupation? Retired MIGRATION.0301 797466 Information not available 05/17/2022 Have There Been Any Changes To Your Family Or Social Situation? No MIGRATION.0301 835118 Information not available 05/17/2022 What Is The Fluoride Status Of Your Home? Unknown MIGRATION.0301 466047 Information not available 05/17/2022 Are There Any Guns Present In Your Home? Yes MIGRATION.0301 356807 Information not available 05/17/2022 Do You Use Insect Repellent Routinely? No MIGRATION.0301 513464 Information not available 05/17/2022 Where Do You Live? SingleLevelHouse With Basement MIGRATION.0301 590724 Information not available 05/17/2022 Do You Have A Medical Power Of Library Historian? No MIGRATION.0301 710588 Information not available 05/17/2022 What Was The Date Of Your Most Recent Tobacco Screening? 12/07/2022 [email or web address] Information not available 12/07/2022 Have You Ever Been Counseled For Unhealthy Alcohol Use? No MIGRATION.0301 066177 Information not available 05/17/2022 Do You Have Any Pets? Yes MIGRATION.0301 015047 Information not available 05/17/2022 What Is Your Relationship Status? MIGRATION.0301 785630 Information not available 05/17/2022 Do You Use Your Seat Belt Or Car Seat Routinely? Yes MIGRATION.0301 854828 Information not available 05/17/2022 Do You Have Smoke And Carbon Monoxide Detectors In Your Home? Yes MIGRATION.0301 639976 Information not available 05/17/2022 Are You Passively Exposed To Smoke? No MIGRATION.0301 368121 Information not available 05/17/2022 Do You Or Have You Ever Used Smokeless Tobacco? Never Used Smokeless Tobacco MIGRATION.0301 251140 Information not available 05/17/2022 Are There Any Smokers In Your House? No MIGRATION.0301 664171 Information not available 05/17/2022 How Much Tobacco Do You Smoke? No MIGRATION.0301 582153 Information not available 05/17/2022 What Types Of Sporting Activities Do You Participate In? Golf MIGRATION.0301 619598 Information not available 05/17/2022 Do You Feel Stressed (tense, Restless, Nervous, Or Anxious, Or Unable To Sleep At Night)? [id number] MIGRATION.0301 005020 Information not available 05/17/2022 Do You Use Any Illicit Or Recreational Drugs? No MIGRATION.0301 949983 Information not available 05/17/2022 Do You Use Sunscreen Routinely? No MIGRATION.0301 863296 Information not available 05/17/2022 Has Tobacco Cessation Counseling Been Provided? No Not Needed-nev er Smoked MIGRATION.0301 667421 Information not available 05/17/2022 How Many Years Have You Smoked Tobacco? 0 MIGRATION.0301 806763 Information not available 05/17/2022 Have You Recently Traveled Abroad? No MIGRATION.0301 889592 Information not available 05/17/2022 Do You Have Any Dietary Restrictions? No MIGRATION.0301 612638 Information not available 05/17/2022 Do You Or Have You Ever Used Any Other Forms Of Tobacco Or Nicotine? No MIGRATION.0301 765512 Information not available 05/17/2022 Sex: Male Functional Status Question Answer Note LastModified by Organizat ion Details LastModified Time Do you have difficulty walking or climbing stairs? No MIGRATION.[id number] 026 Information not available 05/17/2022 Do you have transportation difficulties? No MIGRATION.1078878 026 Information not available 05/17/2022 Are you able to walk? YESWOREST MIGRATION.0989629 026 Information not available 05/17/2022 Do you have difficulty doing errands alone? No MIGRATION.9374166 026 Information not available 05/17/2022 Are you able to care for yourself? Yes MIGRATION.2815309 026 Information not available 05/17/2022 Do you have difficulty dressing or bathing? No MIGRATION.9352591 026 Information not available 05/17/2022 What is your exercise level? Moderate MIGRATION.6691463 026 Information not available 05/17/2022 Mental Status Question Answer Note LastModified by Organizat ion Details LastModified Time Do you have difficulty concentrating, remembering or making decisions? No MIGRATION.[id number] 6 Information not available 05/17/2022 Family History Relationship Description Onset Age of this Age Resolved Age Notes LastModified by Organization Details LastModified Time Father Heart disease MIGRATION.687 [id number] Not available 05/17/2022 04:42:37 Sister Malignant tumor of breast MIGRATION.910 [id number] Not available 05/17/2022 04:42:37 Unspecified Relation Family history of diabetes mellitus MIGRATION.185 [id number] Not available 05/17/2022 04:42:37 Unspecified Relation Family history of stroke MIGRATION.260 [id number] Not available 05/17/2022 04:42:37 Unspecified Relation Family history of Hypertension MIGRATION.917 [id number] Not available 05/17/2022 04:42:37 Unspecified Relation Family history of malignant neoplasm MIGRATION.140 [id number] Not available 05/17/2022 04:42:37 Medical History Condition Response NERVE DISEASE N BLINDNESS N RHEUMATIC FEVER N KIDNEY STONES N BLADDER PROBLEMS N MRSA N OTHER # 1 N POLIO N LUNG DISEASE/DISORDER N COPD N RADIATION / CHEMOTHERAPY N Other # 2 N BLOOD DISEASES N EAR OR HEARING PROBLEMS N MUMPS N DEPRESSION (INCLUDING POST ) N BOWEL PROBLEMS N STROKE/TIA N ULCERS N BENIGN PROSTATIC HYPERPLASIA N MEASLES N MYOCARDIAL INFARCTION N OBESITY N GERD/NAUSEA N ANEURYSM N URINARY/BLADDER/KIDNEY PROBLEMS N CORONARY ARTERY DISEASE (CAD) N ADDICTION CONCERNS N Impotence N ENDOMETRIOSIS N USE OF BLOOD THINNERS N SKIN PROBLEMS N GASTROINTESTINAL DISORDER N PERIPHERAL VASCULAR DISEASE N MUSCLE,JOINT OR BONE PROBLEMS Y GASTROINTESTINAL BLEEDING N BLOOD CLOTS N ASTHMA N CATARACTS N ERECTILE DYSFUNCTION N VARICOSITIES N GI PROBLEMS N Low Testosterone N INFERTILITY N AIDS/HIV N CHEMOTHERAPY / RADIATION N LIVER DISEASE N MALE HYPOGONADISM N HYPERTENSION Y Deficiency N TOURETTE'S N ANXIETY DISORDER Y BLOOD TRANSFUSION N ANEMIA/BLOOD DISORDER N CHRONIC EAR INFECTIONS N BRONCHITIS N TUBERCULOSIS N GLAUCOMA N FOOT PROBLEM N DIVERTICULITIS N SLEEP APNEA Y CHICKENPOX N INFECTIOUS DISEASE N PROSTATE N HEART ARRHYTHMIA N INSOMNIA N HIGH CHOLESTEROL / HYPERLIPIDEMIA Y EYE PROBLEMS N HYPERTHYROIDISM N EDEMA N CHRONIC PAIN SYNDROME N HYPOTHYROIDISM N CAROTID BLOCKAGE N CONSTIPATION N BACK / NECK PROBLEMS N HAVE YOU BEEN HOSPITALIZED OR SEEN IN [facility] IN THE PAST YEAR ? N ATHEROSCLEROSIS N BREAST PROBLEMS N DIALYSIS N ECZEMA N OSTEOPOROSIS N ARTHRITIS N APPENDICITIS N DIABETES, TYPE N BAD TEETH N ENT N HEARTBURN / REFLUX N AUTISM SPECTRUM DISORDER (ASD) N HEPATITIS / LIVER DISEASE N GOUT N SLEEP DISORDER N ALZHEIMER'S DISEASE N Brain Problems N DEMENTIA N HERPES N SEIZURES/EPILEPSY N HEADACHES/MIGRAINES Y VASCULAR DISEASE N PACEMAKER N Blood Disorder N DIZZINESS N HEART DISEASE/HEART PROBLEMS N KIDNEY DISEASE N MULTIPLE SCLEROSIS N CANCER: SPECIFY N CARDIAC ARRHYTHMIA N ATRIAL FIBRILLATION N Gall Stones N PULMONARY EMBOLISM N AUTOIMMUNE DISEASE N Immunizations Vaccine Type Date Status Note Provider Nam e and Address Organization Details Recorded Time Respiratory syncytial virus (RSV), unspecified 3 completed BRENDAN Carr [facility] 12/12/2022 15:11:54 Influenza, high-dose, quadrivalent, PF 3 completed BRENDAN Carr, [facility] 12/12/2022 15:12:26 COVID-19, mRNA, LNP-S, PF, 100 mcg/0.5mL dose or 50 mcg/0.25mL dose 1 completed Not Available [facility] 05/17/2022 05:05:30 COVID-19, mRNA, LNP-S, PF, 100 mcg/0.5mL dose or 50 mcg/0.25mL dose 1 completed Not Available [facility] 05/17/2022 05:05:30 COVID-19, mRNA, LNP-S, PF, 100 mcg/0.5mL dose or 50 mcg/0.25mL dose 1 completed Not Available [facility] 05/17/2022 05:05:30 Influenza, high-dose, trivalent, PF 9 completed Not Available [facility] 05/17/2022 05:05:30 zoster recombinant 9 completed Not Available [facility] 05/17/2022 05:05:30 zoster, unspecified formulation 9 completed Not Available [facility] 05/17/2022 05:05:31 Influenza, high-dose, trivalent, PF 8 completed Not Available [facility] 05/17/2022 05:05:31 Influenza, high-dose, trivalent, PF 7 completed Not Available [facility] 05/17/2022 05:05:31 Influenza, high-dose, trivalent, PF 6 completed Not Available [facility] 05/17/2022 05:05:31 Influenza, split virus, trivalent, preservative 4 completed Not Available [facility] 05/17/2022 05:05:31 Influenza, high-dose, quadrivalent, PF 2 completed Not Available [facility] 05/17/2022 05:05:31 COVID-19, mRNA, LNP-S, PF, 100 mcg/0.5mL dose or 50 mcg/0.25mL dose 2 completed Not Available [facility] 05/17/2022 05:05:31 Influenza, high-dose, trivalent, PF 0 completed Not Available [facility] 05/17/2022 05:05:31 influenza, unspecified formulation 5 completed Not Available [facility] 05/17/2022 05:05:31 Td (adult), 5 Lf tetanus toxoid, preservative free, adsorbed 1 completed Not Available [facility] [facility] 05/17/2022 05:05:32 pneumococcal polysaccharide PPV23 8 completed Not Available [facility] 05/17/2022 05:05:32 Pneumococcal conjugate PCV 13 5 completed Not Available [facility] 05/17/2022 05:05:32 Past Encounters Encounter ID Performer Location Encounter Start Date Encounter Closed Date Diagnosis/Indication Diagnosis SNOMED-CT Code Diagnosis ICD10 Code Diagnosis Note [id number] [facility] [address] [facility] , [place] [address] 08/03/2020 00:00:00 08/03/2020 21:12:31 [id number] S_GMG Internal Med [facility] [address] [facility] [place] [address] 09/13/2020 00:00:00 09/13/2020 21:39:57 [id number] S_G Internal Med [place] [address] [facility] y , [place] [address] 11/16/2020 00:00:00 11/22/2020 12:13:27 [id number] [facility] Internal Med [place] [address] [place] [address] y , [place] [address] 05/10/2021 00:00:00 05/14/2021 12:41:09 [id number] [facility] Internal [facility] [place] [address] [place] [address] y , [place] [address] 09/06/2021 00:00:00 09/11/2021 16:24:38 [id number] [facility] [place] [address] [place] [address] y , [place] [address] 02/28/2022 00:00:00 02/28/2022 14:02:49 [id number] [facility] [place] [address] [place] [address] [place] [address] 05/30/2022 11:38:30 05/30/2022 13:04:21 Essential hypertension 32130873 I10 Edema of l ower extremity 338407481 R60.0 [id number] Dandre Huffman MD [facility] Internal Med [place] [address] [place] [address] y , [place] [address] 12/07/2022 11:34:19 12/07/2022 12:31:38 Pain of left shoulder joint [id number] 3849071 M25.512 Essential hypertension 51140675 I10 Edema of l ower extremity 813523667 R60.0 Pure hypercholesterolemia 390645088 E78.00 Health Concerns Section Related Observation LastModified by Organization Detai ls LastModified Time None Recorded Concern Status LastModified by Organization Details LastModified Time None Recorded Advance Directives Directive N: Payers Encounter Date Sequence Insurance Name Policy Number Policy Ramirez Covered Member ID Ramirez Member ID Guarantor Name 05/30/2022 1 [place] Zaire Paz [id number] Zaire Velez Jackson 05/30/[address] [employer] - PLAN N (MEDICARE SUPPLEMENT) Zaire Ricardosophia [id number] Zaire Velez Jackson 12/07/2022 1 [place] Zaire Ricardosophia [id number] Zaire Ricardosophia 12/07/[address] [employer] - PLAN N (MEDICARE SUPPLEMENT) Zaire Ricardosophia [id number] Zaire Ricardosophia Notes Date Note Type Note Provider Name and Address Organization Details Recorded Time 05/31/19 23 text/htm l a edema no shortness of breath did not take his hydrochlorothiazidechronic rhinitis about the samesleep apnea variable compliance Dandre Huffman MD [address], [place], [address], [facility] 05/30/2022 21:59:36 12/08/19 23 text/htm l Hyperlipidemia tries to watch diet still has problems with rhinitis problems with his left shoulder as well been going on for well hypertension no headache or dizziness Dandre Huffman MD [address], [place], [address], [facility] 12/08/2022 08:52:42
--- OUTSIDE RECORDS SUMMARY | 2024-04-29 06:44 | XMS_ITS | Clinical Summary ---
Author Organization [facility] Address [address] [facility] [place] [address] Care Team Providers Care Director Of Corporate Strategy Name Role Phone Unavailable Primary Care Provider Unavailabl e Source Comments [facility],non-owned Affiliates and Associated Physician Practices is amultiple site organization consisting of ambulatory clinics and hospital sitesin [place], [place], [place] and [place]. This disclosure is being madepursuant to the Care Everywhere program and may not contain all information available regarding this patient. Last updated 17.[facility] Encounters Date Type Department Care Team Description 04/23/2024 Lab Requisition [facility] - DermPath Lab [address] [place] [address] Yuliana Wall MD from Last 3 Months Social History Tobacco Use Types Packs/Day Years Used Date Smoking Tobacco: Never Assessed Sex and Gender Information Value Date Recorded Sex Assigned at Not on file Gender Identity Not on file Sexual Orientation Not on file Plan of Treatment Health Maintenance Due Date Last Done Comments COLOGUARD (AGES 45-75) - COL ON CA SCREENING 1950 COLON MONITORING 1950 COLONOSCOPY - COLON CA SCREENING 1948 CT COLONOGRAPHY - COLON CA SCREENING 1950 Colorectal Cancer Screening 1950 FIT - COLON CA SCREENING 1950 FLEX SIG - COLON CA SCREENING 1948 LIPID TESTING 1950 MEDICARE AWV 12 MONTHS 1950 HEPATITIS C SCREENING 06/23/1966 DTAP/TDAP/TD VACCINES (1 - Tdap) 06/28/1967 PNEUMOCOCCAL VACCINE 50+ (1 of 1 - PCV) 1998 ZOSTER VACCINE (1 of 2) 1998 Respiratory Syncytial Virus (RSV) Vaccine Pt: or over 60 yrs (1 - 1-dose 75+ series) 06/28/2023 COVID-19 VACCINE (2023-2 5 season) 2023 INFLUENZA VACCINE (#1) 2023 DEPRESSION SCREENING 03/19/2024 HEPATITIS B VACCINE Aged Out No longe r eligible based on patient's age to complete this topic HIB VACCINE Aged Out No longer eligi ble based on patient's age to complete this topic HPV VACCINE Aged Out No longer eligi ble based on patient's age to complete this topic MENINGOCOCCAL (Group B) VACCINE Aged Out No longer eligible based on patient's age to complete this topic MENINGOCOCCAL VACCINE Aged Out No kishan anita eligible based on patient's age to complete this topic Procedures Procedure Name Priority Date/Time Associated Diagnosis Comments DERMATOPATHOLOGY Routine 04/23/2024 11:1 3 AM DESIGN CHECKER from Last 3 Months Results * DERMATOPATHOLOGY (04/23/2024 11:13 AM DESIGN CHECKER) Case Report Dermatopathology Report Case: [id number] Authorizing Provider: Yuliana Wall MD Collected: 04/23/2024 11:13 AM Ordering Location: [facility] - Received: 04/25/2024 06:08 AM DermPath Lab Pathologist: Laurel Lizarraga MD Specimens: A) - Skin, left cheek B) - Skin, upper back C) - Skin, left thigh 2:24 PM DESIGN CHECKER DERMATOPATHOLOGY LABORATORY Final Diagnosis Specimen A. SKIN, left cheek: ACTINIC KERATOSIS (L57.0) Specimen B. SKIN, upper back: LICHEN PLANUS-LIKE KERATOSIS (BENIGN LICHENOID KERATOSIS) (L82.1) Specimen C. SKIN, left thigh: SQUAMOUS CELL CARCINOMA, WELL DIFFERENTIATED (C44.729) 2:24 PM DESIGN CHECKER DERMATOPATHOLOGY LABORATORY Clinical History A: AK vs SCC B: R/O ISK C: R/O SCC 2:24 PM DESIGN CHECKER DERMATOPATHOLOGY LABORATORY Gross Description Specimen A: Received [...] measuring 10x9x4 mm. Jar 0. 2:24 PM [facility] DERMATOPATHOLOGY LABORATORY Microscopic Description Specimen [...] showing evidence of premature cornification. 2:24 PM [facility] DERMATOPATHOLOGY LABORATORY Disclaimer An external and internal positive and negative controls are appropriate for the histochemical, immunohistochemical and immunofluorescence stain(s) in this case (if any), except where stated explicitly. The performance characteristics of the stain(s) cited in this report were developed and its performance characteristic determined by the Dermatopathology Laboratory at [facility], directed by Dr. Robby Juarez. These tests need not be, and therefore are not, approved by the [place] Food and Drug Administration. The tests are used for clinical purposes. Billing Codes Specimen Charges Stain Charges 14458 54637 08780 1 1 1 2:24 PM DESIGN CHECKER DERMATOPATHOLOGY LABORATORY Embedded Images 2:24 PM [facility] DERMATOPATHOLOGY LABORATORY Pathology/Cytology TISSUE SPECIMEN FROM SKIN / Unknown 04/23/2024 11:13 AM DESIGN CHECKER 04/25/2024 6:08 AM DESIGN CHECKER Miscellaneous samples (specimen) TISSUE SPECIMEN FROM SKIN / Unknown 04/23/2024 11:13 AM DESIGN CHECKER 04/25/2024 6:08 AM DESIGN CHECKER Miscellaneous samples (specimen) TISSUE SPECIMEN FROM SKIN / Unknown 04/23/2024 11:13 AM DESIGN CHECKER 04/25/2024 6:08 AM DESIGN CHECKER Yuliana Wall MD LAB - PATHOLOGY/CYTO LOGY ORDERABLES DERMATOPATHOLOGY LABORATORY [facility] - Department of Dermatology [address], [address] [phone] from Last 3 Months SHOLA PAZ Personal/Family Spouse 1950 [address] [place] [address] TERESASOPHIASHOLA Personal/Family Spouse 7 [address] [place] [phone]
--- OUTSIDE RECORDS SUMMARY | 2024-04-29 06:45 | XMS_ITS ---
Author Organization [facility] Address [address] [place] [address] Care Team Providers Care Pulley Worker Name Role Phone Forrest Castañeda Primary Care Provider Silva Thomas Unavailable [phone] REASON FOR VISIT SCIT - Traditional Schedule Allergy immunotherapy Medications Medication SIG (Take, Route, Frequency, Duration) Notes Start Date End Date Status Testosterone ENANTHATE 50 MG/0.5 ML DIRECTED SUBCUTANEOUSLY ONCE A WEEK *Please review and pick correct strength-formula tion from TOMODO options. If intended option is not shown, discontinue and re-order from Quick Search* Active Azelastine HCl 137 MCG/SPRAY 2 spray(s) intranasally 2 times a day for 30 day(s) 06/06/2023 Active EPIPEN 2-FRANCISCO 0.3 mg as directed intramuscularly once for 1 days 04/02/2023 Active MONTELUKAST 10 mg 1 tab(s) orally once a day for 30 day(s) Active AZELASTINE NASAL 137 mcg/inh 2 spray(s) intranasally 2 times a day for 30 day(s) 06/06/2023 Active SIT (TRADITIONAL) variable per schedule SC per schedule for to be determined Active HYDROCHLOROTHIAZIDE 25 mg 1 tab(s) orally once a day Active TAMSULOSIN 0.4 mg 1 cap(s) orally once a day Active ASPIRIN Active SONG Active TESTOSTERONE enanthate 50 mg/0.5 mL as directed subcutaneously once a week Active AZELASTINE NASAL 137 mcg/inh 2 spray(s) intranasally 2 times a day for 30 day(s) 06/06/2023 Active EpiPen 2-Francisco 0.3 MG/0.3ML as directed intramuscularly once for 1 days 04/02/2023 Active Montelukast Sodium 10 MG 1 tab(s) orally once a day for 30 day(s) Active SIT (TRADITIONAL) VARIABLE PER SCHEDULE SC PER SCHEDULE for TO BE DETERMINED *Please review for potential replacement for e-prescription and drug interaction check* 06/06/2023 Active hydroCHLOROthiazide 25 MG 1 tab(s) orally once a day Active Tamsulosin HCl 0.4 MG 1 cap(s) orally on ce a day Active Aspirin *Please review and pick correct strength-formula tion from TOMODO options. If intended option is not shown, discontinue and re-order from Quick Search* Active Song Allergy *Please review and pick correct strength-formula tion from TOMODO options. If intended option is not shown, discontinue and re-order from Quick Search* Active Encounters Encounter Location Date Provider Diagnosis [facility] [address] [address] [address] 03/05/2024 Silva Lafleur Allergic rhinitis du e to pollen J30.1 ; Allergic rhinitis due to animal (cat) (dog) hair and dander J30.81 ; Other allergic rhinitis J30.89 and Other chronic allergic conjunctivitis H10.45 Assessments Encounter Date Diagnosis (ICD Code) Assessment Notes Treatment Notes Treatment Clinical Notes Section Notes 03/05/2024 Allergic rhinitis due to pollen (ICD-10 - J30.1) 03/05/2024 Allergic rhinitis due to animal (cat) (dog) hair and dander (ICD-10 - J30.81) 03/05/2024 Other allergic rhinitis (ICD-10 - J30.89) 03/05/2024 Other chronic allergic conjunctivitis (ICD-10 - H10.45) Plan Of Treatment Medication Medication Name Sig Start Date Stop Date Notes SIT (TRADITIONAL) variable per schedule SC per schedule for to be determined Next Appt Details Follow Up: 1 Week, Reason: Progress Notes * Zaire WRIGHTDOB:1950 (73 yo M)Acc No.[id number]:03/05/2024 SCIT-Aeroallergen Patient: Zaire RHODES Provider: Miguel Lafleur MD :1950 A ge:73 Y S ex:Male Date:03/05/2024 Address:[address] [place], [place] [id number] Pcp:Forrest Castañeda Subjective: * Chief Complaints: * [...] Hospitalization/Major Diagno stic Procedure: * Medications: T akingAZELASTINE NASAL 137 mcg/inh spray 2 spray(s) intranasally [...] *Please review and pick correct strength-formulation from Medispan options. If intended option is not shown, discontinue and re-order from Quick Search*Tamsulosin HCl 0.4 MG Capsule 1 cap(s) orally once a day hydroCHLOROthiazide 25 MG Tablet 1 tab(s) orally once a day Song Allergy , Notes to Pharmacist: *Please review and pick correct strength-formulation from UsTrendyan options. If intended option is not shown, discontinue and re-order from Quick Search*Aspirin , Notes to Pharmacist: *Please review and pick correct strength-formulation from UsTrendyan options. If intended option is not shown, discontinue and re-order from Quick Search*Montelukast Sodium 10 MG Tablet 1 tab(s) orally once a day EpiPen 2-Francisco 0.3 MG/0.3ML Solution Auto- injector as directed intramuscularly once SIT (TRADITIONAL) VARIABLE SEE RECORD PER SCHEDULE SC PER SCHEDULE , Notes to Pharmacist: *Please review for potential replacement for e-prescription and drug interaction check*SIT (TRADITIONAL) variable see record per schedule SC [...] *Please review and pick correct strength-formulation from TOMODO options. If intended option is not shown, discontinue and re-order from Quick Search*Taking Tamsulosin HCl 0.4 MG Capsule 1 cap(s) orally once a day Taking hydroCHLOROthiazide 25 MG Tablet 1 tab(s) orally once a day Taking Song Allergy , Notes to Pharmacist: *Please review and pick correct strength-formulation from UsTrendyan options. If intended option is not shown, discontinue and re-order from Quick Search*Taking Aspirin , Notes to Pharmacist: *Please review and pick correct strength-formulation from UsTrendyan options. If intended option is not shown, [...] see record per schedule SC per schedule Objective: * Vitals: Assessment: * Assessment: 1. [...] Information: * Visit Code: * Procedure Codes: 99720 IMMUNOTHERAPY INJECTIONS. * TYPE FINISHER Sign off status: Completed true * Provider: Miguel Lafleur MD Date: 1 05/06/2023 Generated for Marcos calix/Kleber/Jerichoitting on: 0 04/29/2024 06:44 AM WOOD TYPE FINISHER History and Physical Notes * HPI (History [...]
[2024-04-29 07:39] LABS: Hematocrit 45.9 % (42.0-52.0); Hemoglobin 15.2 g/dL (14.0-18.0); Mean Corpuscular HGB Conc 33.1 g/dl (32-36); Mean Corpuscular Hemoglobin 29.4 pg (26-34); Mean Corpuscular Volume 88.8 fl (80-100); Mean Platelet Volume 10.9 fl (7.4-10.4); Platelet Count Result 201 k/mm3 (150-375); Red Blood Count 5.17 M/mm3 (4.6-6.20); Red Cell Distribution Width 12.9 % (11.5-14.5); White Blood Count 8.5 K/mm3 (4.5-10.0)
[2024-04-29 07:40] LABS: Add Urine Microscopic? YES; Appearance Urine Clear (Clear); Bilirubin Urine Negative (Negative); Blood Urine Negative (Negative); Color Urine Dark Yellow (Yellow); Glucose Urine UA Negative (Negative); Ketones Urine Trace mg/dL (Negative); Leukocyte Esterase Ur Negative LEU/UL (Negative); Nitrate Urine Negative (Negative); Protein Urine Negative (Negative); Specific Grav Ur 1.028 (1.001-1.035); Urobilinogen Urine 0.2 mg/dL (<2.0); pH Urine 5.5 (5.0-9.0)
[2024-04-29 07:50] LABS: Alanine Aminotransferase 39 U/L (6-50); Albumin Level 3.9 g/dL (3.5-5.1); Alkaline Phosphatase 63 U/L (38-126); Anion Gap 8 mmol/L (4-12); Aspartate Amino Transferase 24 U/L (17-59); Bilirubin,Total 0.7 mg/dL (0.2-1.3); Blood Urea Nitrogen 14 mg/dL (9-20); Calcium 9.3 mg/dL (8.4-10.2); Carbon Dioxide 28 mmol/L (22-30); Chloride 105 mmol/L (98-107); Cholesterol 169 mg/dL (0-200); Estimated Glomerular Filt Rate > 60; Glucose 114 mg/dL (65-110); HDL Direct 54 mg/dL; Potassium 4.5 mmol/L (3.4-5.0); Sodium 141 mmol/L (137-145); Triglycerides 144 mg/dL (<150)
[2024-04-29 08:01] LABS: LDL Cholesterol Direct 86 mg/dL
[2024-04-29 08:20] LABS: Prostate Specific Antigen 2.5 ng/mL (< OR = 4.0)
== END 2024-04-29 06:40 | disposition home or self-care (01) ==
LOC: ANHLAB 06:42
PROVIDERS: PCP Internal Medicine; Visit Provider Nurse Practitioner
DX: N40.0 Benign prostatic hyperplasia without lower urinary tract symptoms (principal); E29.1 Testicular hypofunction; F41.9 Anxiety disorder, unspecified; I10 Essential (primary) hypertension; R53.83 Other fatigue; Z12.5 Encounter for screening for malignant neoplasm of prostate
CPT/HCPCS: 36415; 80053; 80061; 81001; 84153; 84443; 85025; G0103

== ENCOUNTER 2024-05-09 07:07 | Outpatient (CLI) | payer MEDICARE, SELFPAY ==
--- OUTSIDE RECORDS SUMMARY | 2024-05-09 07:13 | XMS_ITS | Clinical Summary ---
Author Organization [facility] Address [address] [facility] [place] [address] Care Team Providers Care Derivatives Trader Name Role Phone Unavailable Primary Care Provider Unavailabl e Source Comments [facility],non-owned Affiliates and Associated Physician Practices is amultiple site organization consisting of ambulatory clinics and hospital sitesin [place], [place], [place] and [place]. This disclosure is being madepursuant to the Care Everywhere program and may not contain all information available regarding this patient. Last updated 17.[facility] Encounters Date Type Department Care Team Description 04/23/2024 Lab Requisition [facility] - DermPath Lab [address] [place] [address] Yuliana Wall MD from Last 3 Months [...] Comments DERMATOPATHOLOGY Routine 04/23/2024 11:1 3 AM CURRICULUM DIRECTOR from Last 3 Months Results * DERMATOPATHOLOGY (04/23/2024 11:13 AM CURRICULUM DIRECTOR) Case Report Dermatopathology Report Case: [id number] Authorizing Provider: Yuliana Wall MD Collected: 04/23/2024 11:13 AM Ordering Location: [facility] - Received: 04/25/2024 06:08 AM DermPath Lab Pathologist: Laurel Lizarraga MD Specimens: A) - Skin, left cheek B) - Skin, upper back C) - Skin, left thigh 2:24 PM CURRICULUM DIRECTOR DERMATOPATHOLOGY LABORATORY Final Diagnosis Specimen A. SKIN, left cheek: ACTINIC KERATOSIS (L57.0) Specimen B. SKIN, upper back: LICHEN PLANUS-LIKE KERATOSIS (BENIGN LICHENOID KERATOSIS) (L82.1) Specimen C. SKIN, left thigh: SQUAMOUS CELL CARCINOMA, WELL DIFFERENTIATED (C44.729) 2:24 PM CURRICULUM DIRECTOR DERMATOPATHOLOGY LABORATORY Clinical History A: AK vs SCC B: R/O ISK C: R/O SCC 2:24 PM CURRICULUM DIRECTOR DERMATOPATHOLOGY LABORATORY Gross Description Specimen A: Received [...] measuring 10x9x4 mm. Jar 0. 2:24 PM [facility] DERMATOPATHOLOGY LABORATORY Microscopic Description Specimen [...] showing evidence of premature cornification. 2:24 PM [facility] DERMATOPATHOLOGY LABORATORY Disclaimer An external and internal positive and negative controls are appropriate for the histochemical, immunohistochemical and immunofluorescence stain(s) in this case (if any), except where stated explicitly. The performance characteristics of the stain(s) cited in this report were developed and its performance characteristic determined by the Dermatopathology Laboratory at [facility], directed by Dr. Robby Juarez. These tests need not be, and therefore are not, approved by the [place] Food and Drug Administration. The tests are used for clinical purposes. Billing Codes Specimen Charges Stain Charges 60602 93498 27397 1 1 1 2:24 PM CURRICULUM DIRECTOR DERMATOPATHOLOGY LABORATORY Embedded Images 2:24 PM [facility] DERMATOPATHOLOGY LABORATORY Pathology/Cytology TISSUE SPECIMEN FROM SKIN / Unknown 04/23/2024 11:13 AM CURRICULUM DIRECTOR 04/25/2024 6:08 AM CURRICULUM DIRECTOR Miscellaneous samples (specimen) TISSUE SPECIMEN FROM SKIN / Unknown 04/23/2024 11:13 AM CURRICULUM DIRECTOR 04/25/2024 6:08 AM CURRICULUM DIRECTOR Miscellaneous samples (specimen) TISSUE SPECIMEN FROM SKIN / Unknown 04/23/2024 11:13 AM CURRICULUM DIRECTOR 04/25/2024 6:08 AM CURRICULUM DIRECTOR Yuliana Wall MD LAB - PATHOLOGY/CYTO LOGY ORDERABLES DERMATOPATHOLOGY LABORATORY [facility] - Department of Dermatology [address] [phone] from Last 3 Months SHOLA PAZ Personal/Family Spouse 1950 [address] [place] [phone] TERESAKARISHOLA Personal/Family Spouse 7 [address] [place] [phone]
--- OUTSIDE RECORDS SUMMARY | 2024-05-09 07:13 | XMS_ITS | Encounter Summary ---
Author Organization [facility] Address [address] [facility] [place] [address] Care Team Providers Care Ditching Machine Operating Engineer Name Role Phone Unavailable Primary Care Provider Unavailabl e Encounter Details Date Type Department Care Team (Late st Contact Info) Description 07/18/2017 Lab Requisition [facility] DermPath Lab [address] [facility] [place] [address] Adarsh Bryant MD [address] [place] [address] Social History Tobacco Use Types [...] AM CDT) Case Report Dermatopathology Report Case: [id number] Authorizing Provider: Adarsh Bryant MD Collected: 07/17/2017 [...] specimen consists of a shave biopsy measuring 6t6t2pd, the margin is inked green. Jar 0. [...] determined by the Dermatopathology Laboratory at [facility]. These tests need not be, and therefore are not, approved by the [place] Food and Drug Administration. The tests are used for clinical purposes. Billing Codes Specimen Charges Stain Charges 97924 1 3:46 PM CDT DERMATOPATHOLOGY LABORATORY Embedded Images 3:46 PM CDT DERMATOPATHOLOGY LABORATORY Pathology/Cytolog y TISSUE SPECIMEN FROM SKIN / Unknown 07/17/2017 07/18/2017 12:44 PM CDT Adarsh Bryant MD LAB - PATHOLOGY/CYTO LOGY ORDERABLES DERMATOPATHOLOGY LABORATORY [facility] - Department of Dermatology [address] [place] [address] 5th Floor Lab B [place], [place] [id number] [place] [address] documented in this encounter Visit Diagnoses Not on filedocumented in this encounter
--- OUTSIDE RECORDS SUMMARY | 2024-05-09 07:13 | XMS_ITS | Encounter Summary ---
Author Organization [facility] Address [address] [place] [address] Care Team Providers Care Fabrication And Assembly Supervisor Name Role Phone Unavailable Primary Care Provider Unavailabl e Encounter Details Date Type Department Care Team (Late st Contact Info) Description 04/23/2024 Lab Requisition [facility] - DermPath Lab [address] [facility] [place] [address] Yuliana Wall MD [address] [facility] [address] [place] [address] Social History Tobacco Use Types Packs/Day Years [...] Comments DERMATOPATHOLOGY Routine 04/23/2024 11:1 3 AM GEOTECHNICIAL PROPERTIES TECHNICIAN documented in this encounter Results * DERMATOPATHOLOGY (04/23/2024 11:13 AM GEOTECHNICIAL PROPERTIES TECHNICIAN) Case Report Dermatopathology Report Case: [id number] Authorizing Provider: Yuliana Wall MD Collected: 04/23/2024 11:13 AM Ordering Location: [facility] Physician [facility] - Received: 04/25/2024 06:08 AM DermPath Lab Pathologist: Laurel Lizarraga MD Specimens: A) - Skin, left cheek B) - Skin, upper back C) - Skin, left thigh 2:24 PM GEOTECHNICIAL PROPERTIES TECHNICIAN DERMATOPATHOLOGY LABORATORY Final Diagnosis Specimen A. SKIN, left cheek: ACTINIC KERATOSIS (L57.0) Specimen B. SKIN, upper back: LICHEN PLANUS-LIKE KERATOSIS (BENIGN LICHENOID KERATOSIS) (L82.1) Specimen C. SKIN, left thigh: SQUAMOUS CELL CARCINOMA, WELL DIFFERENTIATED (C44.729) 2:24 PM [facility] DERMATOPATHOLOGY LABORATORY Clinical History A: AK vs SCC B: R/O ISK C: R/O SCC 2:24 PM [facility] DERMATOPATHOLOGY LABORATORY Gross Description [...] measuring 10x9x4 mm. Jar 0. 2:24 PM [facility] DERMATOPATHOLOGY LABORATORY Microscopic Description [...] showing evidence of premature cornification. 2:24 PM [facility] DERMATOPATHOLOGY LABORATORY Disclaimer An external and internal positive and negative controls are appropriate for the histochemical, immunohistochemical and immunofluorescence stain(s) in this case (if any), except where stated explicitly. The performance characteristics of the stain(s) cited in this report were developed and its performance characteristic determined by the Dermatopathology Laboratory at [facility], directed by Dr. Robby Juarez. These tests need not be, and therefore are not, approved by the [place] Food and Drug Administration. The tests are used for clinical purposes. Billing Codes Specimen Charges Stain Charges 27753 86449 95083 1 1 1 2:24 PM [facility] DERMATOPATHOLOGY LABORATORY Embedded Images 2:24 PM [facility] DERMATOPATHOLOGY LABORATORY Pathology/Cytology TISSUE SPECIMEN FROM SKIN / Unknown 04/23/2024 11:13 AM GEOTECHNICIAL PROPERTIES TECHNICIAN 04/25/2024 6:08 AM GEOTECHNICIAL PROPERTIES TECHNICIAN Miscellaneous samples (specimen) TISSUE SPECIMEN FROM SKIN / Unknown 04/23/2024 11:13 AM GEOTECHNICIAL PROPERTIES TECHNICIAN 04/25/2024 6:08 AM GEOTECHNICIAL PROPERTIES TECHNICIAN Miscellaneous samples (specimen) TISSUE SPECIMEN FROM SKIN / Unknown 04/23/2024 11:13 AM GEOTECHNICIAL PROPERTIES TECHNICIAN 04/25/2024 6:08 AM GEOTECHNICIAL PROPERTIES TECHNICIAN Yuliana Wall MD LAB - PATHOLOGY/CYTO LOGY ORDERABLES DERMATOPATHOLOGY LABORATORY [facility] - Department of Dermatology [facility] [address] [place] [address], [address] [phone] documented in this encounter Visit Diagnoses Not on filedocumented in this encounter
--- OUTSIDE RECORDS SUMMARY | 2024-05-09 07:13 | XMS_ITS ---
Author Organization [facility] Address [address] [place], [place] [address] Care Team Providers Care System Configuration Specialist Name Role Phone MARLA STEEL Unavailable [phone] Forrest Castañeda Unavailable Unavailable REASON FOR VISIT [...] Notes Tobacco use: former smoker Vital Signs Weight 245 lbs 12/13/2023 Weight-kg 111.13 kg 12/13/2023 Height 71 in 12/13/2023 Height-cm 180.34 cm 12/13/2023 BMI 34.17 kg/m2 12/13/2023 Encounters Encounter Location Date Provider Diagnosis [facility] [address] [place], [place] [phone] 12/13/2023 MARLA STEEL Fungal infection of nail [...] removed Next Appt Details Provider Name:MARLA GALLARDO, 05/29/2024 11:40:00 AM, [address], [address], [phone], Progress Notes * Zaire PAZDOB:1950 (73 yo M)Acc No.[id number]:12/13/2023 Patient: Zaire RHODES Provider: Jj Steel DPM :1950 A ge:73 Y S ex:Male Date:12/13/2023 Address:[address] [place], [place] [phone] Subjective: * Chief Complaints: * * General [...] Information: * Visit Code: * Procedure Codes: 78998 DEBRIDE NAIL, 6 OR MORE. Modifiers: Q8 * Sign off status: Completed true * Provider: Jj Steel DPM Date: 0 12/13/2023 Generated for Marcos calix/Kleber/Beulah on: 0 05/09/2024 07:13 AM DOCTOR OF DENTAL SURGERY History and Physical Notes * HPI (History [...]
--- OUTSIDE RECORDS SUMMARY | 2024-05-09 07:13 | XMS_ITS | Referral Summary ---
Author Organization [facility] Address [address] [place] [address] Care Team Providers Care Nutritionists Name Role Phone Unavailable Primary Care Provider Unavailabl e Source Comments [facility],non-owned Affiliates and Associated Physician Practices is amultiple site organization consisting of ambulatory clinics and hospital sitesin [place], [place], [place] and [place]. This disclosure is being madepursuant to the Care Everywhere program and may not contain all information available regarding this patient. Last updated 17.[facility] Encounters Date Type Department Care Team Description 04/23/2024 Lab Requisition [facility] - DermPath Lab [address] [place] [address] Yuliana Wall MD from Last 3 Months Social History Tobacco Use Types Packs/Day Years Used Date Smoking Tobacco: Never Assessed Sex and Gender Information Value Date Recorded Sex Assigned at Not on file Gender Identity Not on file Sexual Orientation Not on file Plan of Treatment Not on file Procedures Procedure Name Priority Date/Time Associated Diagnosis Comments DERMATOPATHOLOGY Routine 04/23/2024 11:1 3 AM MEDICAL GENETICIST from Last 3 Months Results * DERMATOPATHOLOGY (04/23/2024 11:13 AM MEDICAL GENETICIST) Case Report Dermatopathology Report Case: [id number] Authorizing Provider: Yuliana Wall MD Collected: 04/23/2024 11:13 AM Ordering Location: [facility] - Received: 04/25/2024 06:08 AM DermPath Lab Pathologist: Laurel Lizarraga MD Specimens: A) - Skin, left cheek B) - Skin, upper back C) - Skin, left thigh 2:24 PM MEDICAL GENETICIST DERMATOPATHOLOGY LABORATORY Final Diagnosis Specimen A. SKIN, left cheek: ACTINIC KERATOSIS (L57.0) Specimen B. SKIN, upper back: LICHEN PLANUS-LIKE KERATOSIS (BENIGN LICHENOID KERATOSIS) (L82.1) Specimen C. SKIN, left thigh: SQUAMOUS CELL CARCINOMA, WELL DIFFERENTIATED (C44.729) 2:24 PM [facility] DERMATOPATHOLOGY LABORATORY Clinical History A: AK vs SCC B: R/O ISK C: R/O SCC 2:24 PM [facility] DERMATOPATHOLOGY LABORATORY Gross Description Specimen A: [...] measuring 10x9x4 mm. Jar 0. 2:24 PM [facility] DERMATOPATHOLOGY LABORATORY Microscopic Description Specimen A. [...] showing evidence of premature cornification. 2:24 PM [facility] DERMATOPATHOLOGY LABORATORY Disclaimer An external and internal positive and negative controls are appropriate for the histochemical, immunohistochemical and immunofluorescence stain(s) in this case (if any), except where stated explicitly. The performance characteristics of the stain(s) cited in this report were developed and its performance characteristic determined by the Dermatopathology Laboratory at [facility], directed by Dr. Robby Juarez. These tests need not be, and therefore are not, approved by the [place] Food and Drug Administration. The tests are used for clinical purposes. Billing Codes Specimen Charges Stain Charges 21275 02694 47154 1 1 1 5 2:24 PM MEDICAL GENETICIST DERMATOPATHOLOGY LABORATORY Embedded Images 5 2:24 PM MEDICAL GENETICIST DERMATOPATHOLOGY LABORATORY Pathology/Cytology TISSUE SPECIMEN FROM SKIN / Unknown 04/23/2024 11:13 AM MEDICAL GENETICIST 04/25/2024 6:08 AM MEDICAL GENETICIST Miscellaneous samples (specimen) TISSUE SPECIMEN FROM SKIN / Unknown 04/23/2024 11:13 AM MEDICAL GENETICIST 04/25/2024 6:08 AM MEDICAL GENETICIST Miscellaneous samples (specimen) TISSUE SPECIMEN FROM SKIN / Unknown 04/23/2024 11:13 AM MEDICAL GENETICIST 04/25/2024 6:08 AM MEDICAL GENETICIST Yuliana Wall MD LAB - PATHOLOGY/CYTO LOGY ORDERABLES DERMATOPATHOLOGY LABORATORY [facility] - Department of Dermatology [address] [phone] from Last 3 Months SHOLA PAZ Personal/Family Spouse 1950 [address] [phone] SHOLA PAZ Personal/Family Spouse 7 [address] [place] [phone]
--- OUTSIDE RECORDS SUMMARY | 2024-05-09 07:13 | XMS_ITS ---
Author Organization [facility] Address [address] [place] [address] Care Team Providers Care Public Works Manager Name Role Phone Forrest Castañeda Primary Care Provider Silva Thomas Unavailable [phone] REASON FOR VISIT SCIT - Traditional Schedule Allergy immunotherapy Medications Medication SIG (Take, Route, Frequency, Duration) Notes Start Date End Date Status Song Allergy *Please review and pick correct strength-formula tion from commercetools options. If intended option is not shown, discontinue and re-order from Quick Search* Active Aspirin *Please review and pick correct strength-formula tion from commercetools options. If intended option is not shown, [...] review and pick correct strength-formula tion from commercetools options. If intended option is not shown, [...] Active Encounters Encounter Location Date Provider Diagnosis [facility] [address] [place] [phone] 04/09/2024 Silva Lafleur Allergic rhinitis du e [...] Appt Details Follow Up: 1 Week, Reason: Provider Name:Silva marie, 05/14/2024 09:30:00 AM, [address], [address], [place], [address], Provider Name:Silva marie, 05/21/2024 10:00:00 AM, [address], [address], [place], [address], Provider Name:Silva marie, 06/04/2024 10:00:00 AM, [address] [facility], [address], [place], [address], Progress Notes * Zaire WRIGHTDOB:1950 (73 yo M)Acc No.[id number]:04/09/2024 SCIT-Aeroallergen Patient: Zaire RHODES Provider: Miguel Lafleur MD :1950 A ge:73 Y S ex:Male Date:04/09/2024 Address:[address] [place] [address] [phone] Pcp:Forrest Castañeda Subjective: * Chief Complaints: * [...] *Please review and pick correct strength-formulation from Arc[employer] options. If intended option is not shown, discontinue and re-order from Quick Search*Tamsulosin HCl 0.4 MG Capsule 1 cap(s) orally once a day hydroCHLOROthiazide 25 MG Tablet 1 tab(s) orally once a day Song Allergy , Notes to Pharmacist: *Please review and pick correct strength- formulation from commercetools options. If intended option is not shown, discontinue and re-order from Quick Search*Aspirin , Notes to Pharmacist: *Please review and pick correct strength-formulation from commercetools options. If intended option is not shown, [...] *Please review and pick correct strength-formulation from commercetools options. If intended option is not shown, discontinue and re-order from Quick Search*Taking Tamsulosin HCl 0.4 MG Capsule 1 cap(s) orally once a day Taking hydroCHLOROthiazide 25 MG Tablet 1 tab(s) orally once a day Taking Song Allergy , Notes to Pharmacist: *Please review and pick correct strength-formulation from [employer] options. If intended option is not shown, discontinue and re-order from Quick Search*Taking Aspirin , Notes to Pharmacist: *Please review and pick correct strength-formulation from [employer] options. If intended option is not shown, [...] Information: * Visit Code: * Procedure Codes: 72119 IMMUNOTHERAPY INJECTIONS. * QUE AUTO MUSEUM MAINTENANCE WORKER Sign off status: Completed true * Provider: Miguel Lafleur MD Date: 04/09/2024 Generated for Marcos calix/Kleber/Beulah on: 05/09/2024 07:12 AM ANTIQUE AUTO MUSEUM MAINTENANCE WORKER History and Physical Notes * HPI (History [...]
--- OUTSIDE RECORDS SUMMARY | 2024-05-09 07:13 | XMS_ITS | Clinical Summary ---
Author Organization [facility] Address [address] [place] [address] Phone Care Team Providers Care Optical Element Coater Name Role Phone Justin Huffman MD Primary Care Provider [phone] Allergies No known active allergies Medications montelukast [...] on file Legal Sex Male 12:12 PM TALENT REP Gender Identity Not on file Sexual Orientation [...] 04/23/2014 Insurance MEDICARE PART A AND B [facility] JOYCELYN PURDY [facility] Care Teams Optical Element Coater Relationship Specialty Start Date End Date Justin Huffman MD [address] [place] [phone] PCP - General Internal Medicine 05/15/19
--- OUTSIDE RECORDS SUMMARY | 2024-05-09 07:13 | XMS_ITS ---
Author Organization [facility] Address [address] [place], [place] [phone] Care Team Providers Care Supervising Film Or Videotape Editor Name Role Phone MARLA STEEL Unavailable [phone] Forrest Castañeda Unavailable Unavailable REASON FOR VISIT [...] Location Date Provider Diagnosis [facility] [address] [place], [place] [phone] 02/28/2024 MARLA STEEL Fungal infection of nail B35.1 ; Pain in right toe(s) M79.674 ; Pain in left toe(s) M79.675 and Unspecified atherosclerosis of [place] arteries of extremities, bilateral legs I70.203 Assessments [...] (ICD-10 - M79.675) 02/28/2024 Unspecified atherosclerosis of [place] arteries of extremities, bilateral legs (ICD-10 - I70.203) Plan Of Treatment Treatment Notes Assessment Notes Fungal infection of nail Nails 1-5 Bilat eral were debrided extensively with nail nippers and emery board, reducing length and girth to pink healthy tissue with any subungual debris and necrotic tissue removed Next Appt Details Provider Name:MARLA GALLARDO, 05/29/2024 11:40:00 AM, [address], [address], [phone], Progress Notes * ADRIANAZaireDOB:1950 (73 yo M)Acc No.[id number]:02/28/2024 Patient: Zaire RHODES Provider: Jj Steel DPM :1950 A ge:73 Y S ex:Male Date:02/28/2024 Address:[address] [place], [place] [address] Subjective: * Chief Complaints: * * General [...] M79.675 4 . U nspecified atherosclerosis of [place] arteries of extremities, bilateral legs - I70.203 Plan: * Treatment: * Procedure Codes: 1 1721 DEBRIDE NAIL, 6 OR MORE, Modifiers: Q8 * Billing Information: * Visit Code: * Procedure Codes: 94058 DEBRIDE NAIL, 6 OR MORE. Modifiers: Q8 * NG SUPERVISOR Sign off status: Completed true * Provider: Jj Steel DPM Date: 04/30/2023 Generated for Marcos calix/Kleber/eTransmitting on: 0 05/09/2024 07:12 AM DIVING SUPERVISOR History and Physical Notes * HPI (History [...]
--- OUTSIDE RECORDS SUMMARY | 2024-05-09 07:14 | XMS_ITS | Patient Health Record ---
Author Organization [facility] Address [address] [place], [place] [phone] Care Team Providers Care Filler Shredder Helper Name Role Phone NATALIIA MARLA Unavailable [phone] Forrest Castañeda Unavailable Unavailable Allergies No Known [...] [facility] [address] [place], [place] [phone] 06/29/2023 MARLA WILLIAM Fungal infection of nail B35.1 ; Pain in right toe(s) M79.674 and Pain in left toe(s) M79.675 [facility] [address] [place], [place] [id number] 10/11/2023 MARLA NAATLIIA Fungal infection of nail B35.1 ; Pain in right toe(s) M79.674 and Pain in left toe(s) M79.675 [facility] [place] [address] [place] [id number] 12/13/2023 MARLA [place] Fungal infection of nail B35.1 ; Pain in right toe(s) M79.674 and Pain in left toe(s) M79.675 [facility] [place] [address] [place] [phone] 02/28/2024 MARLA [place] Fungal infection of nail B35.1 ; Pain in right toe(s) M79.674 ; Pain in left toe(s) M79.675 and Unspecified atherosclerosis of [place] arteries of extremities, bilateral legs I70.203 Assessments [...] (ICD-10 - M79.675) 02/28/2024 Unspecified atherosclerosis of [place] arteries of extremities, bilateral legs (ICD-10 - I70.203) Plan Of Treatment Next Appt Details Provider Name:MARLA GALLARDO, 05/29/2024 11:40:00 AM, [address], [facility], [place], [place], [phone], Insurance Providers Payer Name Payer Address Payer Phone Subscriber Number Group Number Insured Name Patient Relationship to Insured Coverage Start Date Coverage End Date Medicare Part B [place] [address] [place] [address] [id number] Zaire Arvizu Self - patient is the insured [employer] Medicare Supplemental Benefit Plans [id number] [address] [address] [place], [place] [phone] [id number] Zaire Arvizu Self - patient is the insured Medical (General) History Medical History History ICD Code kidney stones Leg/Feet cramps Arthritis Sleep apnea Surgical History Surgery Date(Month/Year) tonsillectomy KIDNEY STONES Right Leg
--- OUTSIDE RECORDS SUMMARY | 2024-05-09 07:14 | XMS_ITS | Encounter Summary ---
Author Organization [facility] Address [address] [place] [address] Care Team Providers Care Synthetic Resin Operator Name Role Phone Unavailable Primary Care Provider Unavailabl e Encounter Details Date Type Department Care Team (Late st Contact Info) Description 01/27/2021 Lab Requisition [facility] DermPath Lab [address] [place] [phone] Adarsh Bryant MD [address] [place] [address] Social History Tobacco Use Types [...] Comments DERMATOPATHOLOGY Routine 01/26/2021 12:0 0 AM RESIDENTIAL WORKER documented in this encounter Results * DERMATOPATHOLOGY (01/26/2021 12:00 AM RESIDENTIAL WORKER) Case Report Dermatopathology Report Case: [id number] Authorizing Provider: Adarsh Bryant MD Collected: 01/26/2021 12:00 AM Ordering Location: [facility] DermPath Lab Received: 01/27/2021 12:48 PM Pathologist: Nikita uJarez MD Specimen: Skin, right superior buttock 1 2:24 PM RESIDENTIAL WORKER DERMATOPATHOLOGY LABORATORY Final Diagnosis Specimen A. 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 2:24 PM [facility] DERMATOPATHOLOGY LABORATORY Gross Description Specimen A: Received is one formalin filled container labeled with the patient's name and designated right superior buttock. The specimen consists of a shave biopsy measuring [id number], bisected. Jar 0. 2:24 PM [facility] DERMATOPATHOLOGY LABORATORY Microscopic Description Specimen A. SKIN, right superior buttock: There is a gently folded epidermis surrounding a connective tissue core in which fat and collagen are intermingled. 2:24 PM RESIDENTIAL WORKER DERMATOPATHOLOGY LABORATORY Disclaimer An external and internal [...] purposes. Billing Codes Specimen Charges Stain Charges 18069 1 2:24 PM RESIDENTIAL WORKER DERMATOPATHOLOGY LABORATORY Embedded Images 2:24 PM RESIDENTIAL WORKER DERMATOPATHOLOGY LABORATORY Pathology/Cytolog y TISSUE SPECIMEN FROM SKIN / Unknown 01/26/2021 01/27/2021 12:48 PM RESIDENTIAL WORKER Adarsh Bryant MD LAB - PATHOLOGY/CYTO LOGY ORDERABLES Performing Organization Address City/State/[facility] Co de Phone Number DERMATOPATHOLOGY LABORATORY [facility] - Department of Dermatology [address], [address] Floor [address] [phone] documented in this encounter Visit Diagnoses Not on filedocumented in this encounter
--- OUTSIDE RECORDS SUMMARY | 2024-05-09 07:14 | XMS_ITS | Patient Health Summary ---
Author Organization [facility] Address [address] [place] [address] Care Team Providers Care Apple Picker Name Role Phone Unavailable Primary Care Provider Unavailabl e Note from [facility],non-owned Affiliates and Associated Physician Practices is amultiple site organization consisting of ambulatory clinics and hospital sitesin [place], [place] and [place]. This disclosure is being madepursuant to the Care Everywhere program and may not contain all information available regarding this patient. Last updated 17.[facility] Social History Tobacco Use Types Packs/Day Years Used Date Smoking Tobacco: Never Assessed Sex and Gender Information Value Date Recorded Sex Assigned at Not on file Gender Identity Not on file Sexual Orientation Not on file Procedures * DERMATOPATHOLOGY(Performed 04/23/2024) * DERMATOPATHOLOGY(Performed 05/07/2023) * DERMATOPATHOLOGY(Performed 01/26/2021) * DERMATOPATHOLOGY(Performed 07/17/2017) * DERMATOPATHOLOGY(Performed 06/08/2016) Results * DERMATOPATHOLOGY (04/23/2024 11:13 AM TRANSFER AND PUMPHOUSE OPERATOR) Only the most recent of5 resultswithin the time period is included. Case Report Dermatopathology Report Case: [id number] Authorizing Provider: Yuliana Wall MD Collected: 04/23/2024 11:13 AM Ordering Location: [facility] - Received: 04/25/2024 06:08 AM DermPath Lab Pathologist: Laurel Lizarraga MD Specimens: A) - Skin, left cheek B) - Skin, upper back C) - Skin, left thigh 2:24 PM TRANSFER AND PUMPHOUSE OPERATOR DERMATOPATHOLOGY LABORATORY Final Diagnosis Specimen A. SKIN, left cheek: ACTINIC KERATOSIS (L57.0) Specimen B. SKIN, upper back: LICHEN PLANUS-LIKE KERATOSIS (BENIGN LICHENOID KERATOSIS) (L82.1) Specimen C. SKIN, left thigh: SQUAMOUS CELL CARCINOMA, WELL DIFFERENTIATED (C44.729) 2:24 PM [facility] DERMATOPATHOLOGY LABORATORY Clinical History A: AK vs SCC B: R/O ISK C: R/O SCC 2:24 PM [facility] DERMATOPATHOLOGY LABORATORY Gross Description Specimen A: Received [...] measuring 10x9x4 mm. Jar 0. 2:24 PM [facility] DERMATOPATHOLOGY LABORATORY Microscopic Description Specimen A. SKIN, [...] showing evidence of premature cornification. 2:24 PM [facility] DERMATOPATHOLOGY LABORATORY Disclaimer An external and internal positive and negative controls are appropriate for the histochemical, immunohistochemical and immunofluorescence stain(s) in this case (if any), except where stated explicitly. The performance characteristics of the stain(s) cited in this report were developed and its performance characteristic determined by the Dermatopathology Laboratory at [facility], directed by Dr. Robby Juarez. These tests need not be, and therefore are not, approved by the [place] Food and Drug Administration. The tests are used for clinical purposes. Billing Codes Specimen Charges Stain Charges 28655 66257 11024 1 1 1 2:24 PM [facility] DERMATOPATHOLOGY LABORATORY Embedded Images 2:24 PM TRANSFER AND PUMPHOUSE OPERATOR DERMATOPATHOLOGY LABORATORY Pathology/Cytology TISSUE SPECIMEN FROM SKIN / Unknown 04/23/2024 11:13 AM TRANSFER AND PUMPHOUSE OPERATOR 04/25/2024 6:08 AM TRANSFER AND PUMPHOUSE OPERATOR Miscellaneous samples (specimen) TISSUE SPECIMEN FROM SKIN / Unknown 04/23/2024 11:13 AM TRANSFER AND PUMPHOUSE OPERATOR 04/25/2024 6:08 AM TRANSFER AND PUMPHOUSE OPERATOR Miscellaneous samples (specimen) TISSUE SPECIMEN FROM SKIN / Unknown 04/23/2024 11:13 AM TRANSFER AND PUMPHOUSE OPERATOR 04/25/2024 6:08 AM TRANSFER AND PUMPHOUSE OPERATOR Yuliana Wall MD LAB - PATHOLOGY/CYTO LOGY ORDERABLES DERMATOPATHOLOGY LABORATORY [facility] - Department of Dermatology [facility] Medicine [address] [place] [address]
--- OUTSIDE RECORDS SUMMARY | 2024-05-09 07:14 | XMS_ITS ---
Author Organization [facility] Address [address] [place], [place] [phone] Care Team Providers Care Door To Door Sales Representative Name Role Phone MARLA STEEL Unavailable [phone] Forrest Castañeda Unavailable Unavailable REASON FOR VISIT [...] former smoker Vital Signs Weight 245 lbs 10/11/2023 Weight-kg 111.13 kg 10/11/2023 Height 71 in 10/11/2023 Height-cm 180.34 cm 10/11/2023 BMI 34.17 kg/m2 10/11/2023 Encounters Encounter Location Date Provider Diagnosis [facility] [address] [place], [place] [phone] 10/11/2023 MARLA STEEL Fungal infection of nail [...] GALLARDO, 05/29/2024 11:40:00 AM, [address], [address], [phone], Progress Notes * Zaire PAZDOB:1950 (73 yo M)Acc No.[id number]:10/11/2023 Patient: Zaire RHODES Provider: Jj Steel DPM :1950 A ge:73 Y S ex:Male Date:10/11/2023 Address:[address] [place], [place] [phone] Subjective: * Chief Complaints: * 1 . [...] Treatment: * Billing Information: * Visit Code: 84160 Office Visit, Est Pt., Level 3. * Procedure Codes: * Sign off status: Completed true * Provider: Jj Steel DPM Date: 0 10/11/2023 Generated for Marcos calix/Kleber/Beulah on: 0 05/09/2024 07:14 AM FOOD SUPERVISOR History and Physical Notes * HPI [...]
--- OUTSIDE RECORDS SUMMARY | 2024-05-09 07:14 | XMS_ITS | Data Portability ---
Author Organization [place] [facility] Nest[facility], Main Office Address [address] [place] [address] Care Team Providers Care Tobacco Stripper Name Role Phone DANDRE HUFFMAN Primary Care Provider DANDRE HUFFMAN Referring Provider [phone] Assessment Encounter Date Assessment Date Assessment LastModified by Organization Details LastModified Time 05/30/2022 05/30/2022 He will take hydrochlorothiazide living on about a week how he is doing pressure is up a little bit of dullness to help with that as well see me back in 3 months use CPAP [email or web address] Not available 05/30/2022 21:59:10 12/07/2022 12/07/2022 Referral for delia compa given the names of some ENT that he wants to investigate before he makes a decision which 1 that he wants to see follow-up me in 4 5 months continue current therapy [email or web address] Not available 12/08/2022 08:52:28 Plan of Treatment Reminders Order Date Submit Date Provider Last Modified By Organization Details Last Modified Time Details Appointments None recorded. Lab None recorded. Referral orthopedic surgeon referral 2022 023 Noble Riley MD, [address], [place], [address], 18:33:00 Procedures None recorded. Surgeries None recorded. [...] . JCEM 2017, 102;1 161-1 173. PMID: 88324 103. Not Available [facility] (Lab) [address] [place], [address], 09/11/2021 20:07:53 09/08/19 22 09/11/2021 TESTO STERO NE, FREE+ TOTAL LC/MS testosterone , free 4.93 NG/dL 5.00-2 1.00 low Not Available [facility] (Lab) [address] [place], [address], 09/11/2021 20:07:53 09/08/19 22 09/11/2021 TESTO STERO NE, FREE+ TOTAL LC/MS % free testosterone 2.84 % 1.50-4 .20 [facility]fo [facility] at: [facility] [place] [address] [facility] , [place] [address] Lab Direc tor: Martha mesa MD, Phone : [phone] Not Available [facility] (Lab) [address] [place], [address], 09/11/2021 20:07:53 09/08/19 22 09/07/2021 TSH thyroid-stim ulating hormone 1.950 uIU/m L 0.465- 4.680 Not Available [facility] (Lab) [address] [place], [address], 09/07/2021 14:29:35 09/08/19 22 09/07/2021 T4 FREE free T4 0.99 NG/dL 0.78-2 .19 Not Available [facility] (Lab) [address] [place] [address], [address], 09/07/2021 14:13:04 09/08/19 22 09/07/2021 T3 FREE free T3 3.0 pg/mL 2.77-5 .27 Not Available [facility] (Lab) [address] [place] [address], [address], 09/07/2021 14:13:03 09/08/19 22 09/07/2021 LIPID PANEL cholesterol 176 mg/dL 140-19 9 NIH SAMMY NSUS RECOM MENDA TION FOR LACIE STERO L: ADULT CHILD LOW RISK: <200 <170 BORDE RLINE : <200- 239 ----- HIGH RISK: >240 >200 Not Available [facility] (Lab) [address] [place] [address], [address], 09/07/2021 13:52:14 09/08/19 22 09/07/2021 LIPID PANEL triglyceride s 102 mg/dL 0-150 NIH SAMMY NSUS REPOR T RECOM MENDA TION FOR TRIGL YCERI MARYANA: ADULT CHILD LOW RISK: <150 ----- BODER LINE: 150-1 99 ----- HIGH RISK: >200 ----- Not Available [facility] (Lab) [address] [place] [address], [address], 09/07/2021 13:52:14 09/08/19 22 09/07/2021 LIPID PANEL HDL cholesterol 56 mg/dL 40- Not Available [facility] (Lab) [address] [place] [address], [address], 09/07/2021 13:52:14 09/08/19 22 09/07/2021 LIPID PANEL [...] WILL NOT BE REPOR KRISTIN. Not Available [facility] (Lab) [address] [place], [address], 09/07/2021 13:52:14 09/08/19 22 09/07/2021 COMPR EHENS NADYA METAB OLIC PANEL sodium 141 mmol/ L 137-14 5 Not Available [facility] (Lab) [address] [place], [address], 09/07/2021 13:52:11 09/08/19 22 09/07/2021 COMPR EHENS NADYA METAB OLIC PANEL potassium 4.7 mmol/ L 3.5-5. 1 Not Available [facility] (Lab) [address] [place], [address], 09/07/2021 13:52:11 09/08/19 22 09/07/2021 COMPR EHENS NADYA METAB OLIC PANEL chloride 109 mmol/ L 98-107 high Not Available [facility] (Lab) [address] [place], [address], 09/07/2021 13:52:11 09/08/19 22 09/07/2021 COMPR EHENS NADYA METAB OLIC PANEL carbon dioxide 24 mmol/ L 22-30 Not Available [facility] (Lab) [address] [place], [address], 09/07/2021 13:52:11 09/08/19 22 09/07/2021 COMPR EHENS NADYA METAB OLIC PANEL anion gap 12.7 mmol/ L 14-22 low Not Available [facility] (Lab) [address] [place], [address], 09/07/2021 13:52:11 09/08/19 22 09/07/2021 COMPR EHENS NADYA METAB OLIC PANEL glucose 110 mg/dL 70-99 high Not Available [facility] (Lab) [address] [place], [address], 09/07/2021 13:52:11 09/08/19 22 09/07/2021 COMPR EHENS NADYA METAB OLIC PANEL BUN 16 mg/dL 8-19 Not Available [facility] (Lab) [address] [place], [address], 09/07/2021 13:52:11 09/08/19 22 09/07/2021 COMPR EHENS NADYA METAB OLIC PANEL creatinine 0.86 mg/dL 0.66-1 .25 Not Available [facility] (Lab) [address] [place], [address], 09/07/2021 13:52:11 09/08/19 22 09/07/2021 COMPR EHENS NADYA METAB OLIC PANEL GFR >60 Refer ence Range : Foley ge GFR Healt hy Adult : >60 [...] or ethni c subgr oups, such as Histx nics. Outsi de the valid ated steph [...] calcu lator is avail able on the [facility] websi te: https :[email or web address] [email or web address] [email or web address] walker/pr ofess ional s/kdo qi/gf r_cal culat or Not Available [facility] (Lab) [address] [place], [address], 09/07/2021 13:52:11 09/08/19 22 09/07/2021 COMPR EHENS NADYA METAB OLIC PANEL alkaline phosphatase 64 U/L 38-126 Not Available [facility] (Lab) [address] [place], [address], 09/07/2021 13:52:11 09/08/19 22 09/07/2021 COMPR EHENS NADYA METAB OLIC PANEL alanine aminotransfe rase 28 U/L 0-50 Not Available [facility] (Lab) [address] [place], [address], 09/07/2021 13:52:11 09/08/19 22 09/07/2021 COMPR EHENS NADYA METAB OLIC PANEL aspartate aminotransfe rase 24 U/L 15-46 Not Available [facility] (Lab) [address] [place], [address], 09/07/2021 13:52:11 09/08/19 22 09/07/2021 COMPR EHENS NADYA METAB OLIC PANEL bilirubin, total 0.90 mg/dL 0.20-1 .30 Not Available [facility] (Lab) [address] [place], [address], 09/07/2021 13:52:11 09/08/19 22 09/07/2021 COMPR EHENS NADYA METAB OLIC PANEL calcium 9.2 mg/dL 8.4-10 .2 Not Available [facility] (Lab) [address] [place], [address], 09/07/2021 13:52:11 09/08/19 22 09/07/2021 COMPR EHENS NADYA METAB OLIC PANEL total protein 6.6 g/dL 6.3-8. 2 Not Available [facility] (Lab) [address] [place], [address], 09/07/2021 13:52:11 09/08/19 22 09/07/2021 COMPR EHENS NADYA METAB OLIC PANEL albumin 4.1 g/dL 3.0-4. 4 Not Available [facility] (Lab) [address] [place], [address], 09/07/2021 13:52:11 09/08/19 22 09/07/2021 COMPR EHENS NADYA METAB OLIC PANEL globulin 2.5 g/dL 2.6-4. 2 low Not Available [facility] (Lab) [address] [place], [address], 09/07/2021 13:52:11 09/08/19 22 09/07/2021 COMPR EHENS NADYA METAB OLIC PANEL A/G ratio 1.6 ratio 1.0-2. 0 Not Available [facility] (Lab) [address] [place], [address], 09/07/2021 13:52:11 09/08/19 22 09/07/2021 CBC/C OMPLE TE BLD COUNT W/DIF F white blood cells 7.9 x10'3 /uL 4.2-10 .8 Not Available [facility] (Lab) [address] [place], [address], 09/07/2021 12:31:57 09/08/19 22 09/07/2021 CBC/C OMPLE TE BLD COUNT W/DIF F red blood cells 4.92 x10'6 /uL 4.10-5 .80 Not Available [facility] (Lab) [address] [place], [address], 09/07/2021 12:31:57 09/08/19 22 09/07/2021 CBC/C OMPLE TE BLD COUNT W/DIF F hemoglobin 14.7 g/dL 13.2-1 7.0 Not Available [facility] (Lab) [address] [place], [address], 09/07/2021 12:31:57 09/08/19 22 09/07/2021 CBC/C OMPLE TE BLD COUNT W/DIF F hematocrit 43.9 % 39.3-5 0.0 Not Available [facility] (Lab) [address] [place], [address], 09/07/2021 12:31:57 09/08/19 22 09/07/2021 CBC/C OMPLE TE BLD COUNT W/DIF F mean red cell volume 89.2 fL 80.0-9 7.0 Not Available [facility] (Lab) [address] [place], [address], 09/07/2021 12:31:57 09/08/19 22 09/07/2021 CBC/C OMPLE TE BLD COUNT W/DIF F mean red cell hemoglobin 29.9 pg 27.0-3 3.0 Not Available [facility] (Lab) [address] [place], [address], 09/07/2021 12:31:57 09/08/19 22 09/07/2021 CBC/C OMPLE TE BLD COUNT W/DIF F mean RBC HGB concentratio n 33.5 g/dL 31.0-3 6.0 Not Available [facility] (Lab) [address] [place], [address], 09/07/2021 12:31:57 09/08/19 22 09/07/2021 CBC/C OMPLE TE BLD COUNT W/DIF F red cell distribution width 12.8 % 11.8-1 5.5 Not Available [facility] (Lab) [address] [place], [address], 09/07/2021 12:31:57 09/08/19 22 09/07/2021 CBC/C OMPLE TE BLD COUNT W/DIF F platelets 209 x10'3 /uL 150-40 0 Not Available [facility] (Lab) [address] [place], [address], 09/07/2021 12:31:57 09/08/19 22 09/07/2021 CBC/C OMPLE TE BLD COUNT W/DIF F mean platelet volume 12.0 fL 9.0-12 .4 Not Available [facility] (Lab) [address] [place], [address], 09/07/2021 12:31:57 09/08/19 22 09/07/2021 CBC/C OMPLE TE BLD COUNT W/DIF F neutrophils 67.2 % 39.0-7 2.0 Not Available [facility] (Lab) [address] [place], [address], 09/07/2021 12:31:57 09/08/19 22 09/07/2021 CBC/C OMPLE TE BLD COUNT W/DIF F lymphocytes 19.5 % 16.0-4 7.0 Not Available [facility] (Lab) [address] [place], [address], 09/07/2021 12:31:57 09/08/19 22 09/07/2021 CBC/C OMPLE TE BLD COUNT W/DIF F monocytes 9.4 % 5.0-12 .0 Not Available [facility] (Lab) [address] [place], [address], 09/07/2021 12:31:57 09/08/19 22 09/07/2021 CBC/C OMPLE TE BLD COUNT W/DIF F eosinophils 3.1 % 1.0-7. 0 Not Available [facility] (Lab) [address] [place], [address], 09/07/2021 12:31:57 09/08/19 22 09/07/2021 CBC/C OMPLE TE BLD COUNT W/DIF F basophils 0.5 % 0.0-2. 0 Not Available [facility] (Lab) [address] [facility] [place], [address], 09/07/2021 12:31:57 09/08/19 22 09/07/2021 CBC/C OMPLE TE BLD COUNT W/DIF F immature granulocytes 0.3 % 0.00-0 .50 Not Available [facility] (Lab) [address] [place], [address], 09/07/2021 12:31:57 09/08/19 22 09/07/2021 CBC/C OMPLE TE BLD COUNT W/DIF F neutrophils, absolute count 5.28 x10'3 /uL 1.5-8. 0 Not Available [facility] (Lab) [address] [place], [address], 09/07/2021 12:31:57 09/08/19 22 09/07/2021 CBC/C OMPLE TE BLD COUNT W/DIF F lymphocytes, absolute count 1.53 x10'3 /uL 1.07-3 .43 Not Available [facility] (Lab) [address] [place], [address], 09/07/2021 12:31:57 09/08/19 22 09/07/2021 CBC/C OMPLE TE BLD COUNT W/DIF F monocytes, absolute count 0.74 x10'3 /uL 0.29-0 .99 Not Available [facility] (Lab) [address] [place], [address], 09/07/2021 12:31:57 09/08/19 22 09/07/2021 CBC/C OMPLE TE BLD COUNT W/DIF F eosinophils, absolute count 0.24 x10'3 /uL 0.02-0 .53 Not Available [facility] (Lab) [address] [place], [address], 09/07/2021 12:31:57 09/08/19 22 09/07/2021 CBC/C OMPLE TE BLD COUNT W/DIF F basophils, absolute count 0.04 x10'3 /uL 0.01-0 .08 Not Available [facility] (Lab) [address] [place], [address], 09/07/2021 12:31:57 09/08/19 22 09/07/2021 CBC/C OMPLE TE BLD COUNT W/DIF F immature granulocytes ,absolute 0.02 x10'3 /uL 0.00-0 .05 Not Available [facility] (Lab) [address] [place], [address], 09/07/2021 12:31:57 09/08/19 22 09/07/2021 CBC/C OMPLE TE BLD COUNT W/DIF F nucleated red blood cells 0.0 % -0 Not Available [facility] (Lab) [address] [place], [address], 09/07/2021 12:31:57 09/08/19 22 09/07/2021 CBC/C OMPLE TE BLD COUNT W/DIF F NRBC# 0.00 x10'3 /uL Not Available [facility] (Lab) [address] [place], [address], 09/07/2021 12:31:57 02/29/20 22 02/28/2022 PSA, TOTAL PSA, total 2.53 NG/mL 0.00-4 .00 Not Available [facility] (Lab) [address] [place], [address], 02/28/2022 21:11:51 02/29/20 22 02/28/2022 COMPR EHENS NADYA METAB OLIC PANEL sodium 139 mmol/ L 137-14 5 Not Available [facility] (Lab) [address] [place], [address], 02/28/2022 20:59:14 02/29/20 22 02/28/2022 COMPR EHENS NADYA METAB OLIC PANEL potassium 4.7 mmol/ L 3.5-5. 1 Not Available [facility] (Lab) [address] [place], [address], 02/28/2022 20:59:14 02/29/20 22 02/28/2022 COMPR EHENS NADYA METAB OLIC PANEL chloride 103 mmol/ L 98-107 Not Available [facility] (Lab) [address] [place], [address], 02/28/2022 20:59:14 02/29/20 22 02/28/2022 COMPR EHENS NADYA METAB OLIC PANEL carbon dioxide 27 mmol/ L 22-30 Not Available [facility] (Lab) [address] [place], [address], 02/28/2022 20:59:14 02/29/20 22 02/28/2022 COMPR EHENS NADYA METAB OLIC PANEL anion gap 13.7 mmol/ L 14-22 low Not Available [facility] (Lab) [address] [place], [address], 02/28/2022 20:59:14 02/29/20 22 02/28/2022 COMPR EHENS NADYA METAB OLIC PANEL glucose 92 mg/dL 70-99 Not Available [facility] (Lab) [address] [place], [address], 02/28/2022 20:59:14 02/29/20 22 02/28/2022 COMPR EHENS NADYA METAB OLIC PANEL BUN 15 mg/dL 8-19 Not Available [facility] (Lab) [address] [place], [address], 02/28/2022 20:59:14 02/29/20 22 02/28/2022 COMPR EHENS NADYA METAB OLIC PANEL creatinine 0.79 mg/dL 0.66-1 .25 Not Available [facility] (Lab) [address] [place], [address], 02/28/2022 20:59:14 02/29/20 22 02/28/2022 COMPR EHENS NADYA METAB OLIC PANEL GFR >60 Refer ence Range : Foley ge GFR Healt hy Adult : >60 [...] calcu lator is avail able on the [facility] websi te: https :[email or web address] [email or web address] [email or web address] rg/pr ofess ional s/kdo qi/gf r_cal culat or Not Available [facility] (Lab) [address] [place], [address], 02/28/2022 20:59:14 02/29/20 22 02/28/2022 COMPR EHENS NADYA METAB OLIC PANEL alkaline phosphatase 69 U/L 38-126 Not Available [facility] (Lab) [address] [place], [address], 02/28/2022 20:59:14 02/29/20 22 02/28/2022 COMPR EHENS NADYA METAB OLIC PANEL alanine aminotransfe rase 26 U/L 0-50 Not Available [facility] (Lab) [address] [place], [address], 02/28/2022 20:59:14 02/29/20 22 02/28/2022 COMPR EHENS NADYA METAB OLIC PANEL aspartate aminotransfe rase 21 U/L 15-46 Not Available [facility] (Lab) [address] [place], [address], 02/28/2022 20:59:14 02/29/20 22 02/28/2022 COMPR EHENS NADYA METAB OLIC PANEL bilirubin, total 1.30 mg/dL 0.20-1 .30 Not Available [facility] (Lab) [address] [place], [address], 02/28/2022 20:59:14 02/29/20 22 02/28/2022 COMPR EHENS NADYA METAB OLIC PANEL calcium 9.2 mg/dL 8.4-10 .2 Not Available [facility] (Lab) [address] [place], [address], 02/28/2022 20:59:14 02/29/20 22 02/28/2022 COMPR EHENS NADYA METAB OLIC PANEL total protein 6.6 g/dL 6.3-8. 2 Not Available [facility] (Lab) [address] [place], [address], 02/28/2022 20:59:14 02/29/20 22 02/28/2022 COMPR EHENS NADYA METAB OLIC PANEL albumin 4.2 g/dL 3.0-4. 4 Not Available [facility] (Lab) [address] [place], [address], 02/28/2022 20:59:14 02/29/20 22 02/28/2022 COMPR EHENS NADYA METAB OLIC PANEL globulin 2.4 g/dL 2.6-4. 2 low Not Available [facility] (Lab) [address] [place], [address], 02/28/2022 20:59:14 02/29/20 22 02/28/2022 COMPR EHENS NADYA METAB OLIC PANEL A/G ratio 1.8 ratio 1.0-2. 0 Not Available [facility] (Lab) [address] [place], [address], 02/28/2022 20:59:14 02/29/20 22 02/28/2022 LIPID PANEL cholesterol 164 mg/dL 140-19 9 NIH SAMMY NSUS RECOM MENDA TION FOR LACIE STERO L: ADULT CHILD LOW RISK: <200 <170 BORDE RLINE : <200- 239 ----- HIGH RISK: >240 >200 Not Available [facility] (Lab) [address] [place], [address], 02/28/2022 20:59:06 02/29/20 22 02/28/2022 LIPID PANEL triglyceride s 101 mg/dL 0-150 NIH SAMMY NSUS REPOR T RECOM MENDA TION FOR TRIGL YCERI MARYANA: ADULT CHILD LOW RISK: <150 ----- BODER LINE: 150-1 99 ----- HIGH RISK: >200 ----- Not Available [facility] (Lab) [address] [place], [address], 02/28/2022 20:59:06 02/29/20 22 02/28/2022 LIPID PANEL HDL cholesterol 66 mg/dL 40- Not Available [facility] (Lab) [address] [place] [address], [address], 02/28/2022 20:59:06 02/29/20 22 02/28/2022 LIPID PANEL [...] WILL NOT BE REPOR KRISTIN. Not Available [facility] (Lab) [address] [place], [address], 02/28/2022 20:59:06 02/29/20 22 02/28/2022 CBC/C OMPLE TE BLD COUNT W/DIF F white blood cells 8.4 x10'3 /uL 4.2-10 .8 Not Available [facility] (Lab) [address] [place], [address], 02/28/2022 19:32:14 02/29/20 22 02/28/2022 CBC/C OMPLE TE BLD COUNT W/DIF F red blood cells 5.13 x10'6 /uL 4.10-5 .80 Not Available [facility] (Lab) [address] [place], [address], 02/28/2022 19:32:14 02/29/20 22 02/28/2022 CBC/C OMPLE TE BLD COUNT W/DIF F hemoglobin 14.9 g/dL 13.2-1 7.0 Not Available [facility] (Lab) [address] [place], [address], 02/28/2022 19:32:14 02/29/20 22 02/28/2022 CBC/C OMPLE TE BLD COUNT W/DIF F hematocrit 45.7 % 39.3-5 0.0 Not Available [facility] (Lab) [address] [place], [address], 02/28/2022 19:32:14 02/29/20 22 02/28/2022 CBC/C OMPLE TE BLD COUNT W/DIF F mean red cell volume 89.1 fL 80.0-9 7.0 Not Available [facility] (Lab) [address] [place], [address], 02/28/2022 19:32:14 02/29/20 22 02/28/2022 CBC/C OMPLE TE BLD COUNT W/DIF F mean red cell hemoglobin 29.0 pg 27.0-3 3.0 Not Available [facility] (Lab) [address] [place], [address], 02/28/2022 19:32:14 02/29/20 22 02/28/2022 CBC/C OMPLE TE BLD COUNT W/DIF F mean RBC HGB concentratio n 32.6 g/dL 31.0-3 6.0 Not Available [facility] (Lab) [address] [place], [address], 02/28/2022 19:32:14 02/29/20 22 02/28/2022 CBC/C OMPLE TE BLD COUNT W/DIF F red cell distribution width 12.5 % 11.8-1 5.5 Not Available [facility] (Lab) [address] [facility] [place], [address], 02/28/2022 19:32:14 02/29/20 22 02/28/2022 CBC/C OMPLE TE BLD COUNT W/DIF F platelets 235 x10'3 /uL 150-40 0 Not Available [facility] (Lab) [address] [place], [address], 02/28/2022 19:32:14 02/29/20 22 02/28/2022 CBC/C OMPLE TE BLD COUNT W/DIF F mean platelet volume 11.9 fL 9.0-12 .4 Not Available [facility] (Lab) [address] [place], [address], 02/28/2022 19:32:14 02/29/20 22 02/28/2022 CBC/C OMPLE TE BLD COUNT W/DIF F neutrophils 64.4 % 39.0-7 2.0 Not Available [facility] (Lab) [address] [place], [address], 02/28/2022 19:32:14 02/29/20 22 02/28/2022 CBC/C OMPLE TE BLD COUNT W/DIF F lymphocytes 22.9 % 16.0-4 7.0 Not Available [facility] (Lab) [address] [place], [address], 02/28/2022 19:32:14 02/29/20 22 02/28/2022 CBC/C OMPLE TE BLD COUNT W/DIF F monocytes 9.1 % 5.0-12 .0 Not Available [facility] (Lab) [address] [place], [address], 02/28/2022 19:32:14 02/29/20 22 02/28/2022 CBC/C OMPLE TE BLD COUNT W/DIF F eosinophils 2.6 % 1.0-7. 0 Not Available [facility] (Lab) [address] [place], [address], 02/28/2022 19:32:14 02/29/20 22 02/28/2022 CBC/C OMPLE TE BLD COUNT W/DIF F basophils 0.6 % 0.0-2. 0 Not Available [facility] (Lab) [address] [place], [address], 02/28/2022 19:32:14 02/29/20 22 02/28/2022 CBC/C OMPLE TE BLD COUNT W/DIF F immature granulocytes 0.4 % 0.00-0 .50 Not Available [facility] (Lab) [address] [place], [address], 02/28/2022 19:32:14 02/29/20 22 02/28/2022 CBC/C OMPLE TE BLD COUNT W/DIF F neutrophils, absolute count 5.43 x10'3 /uL 1.5-8. 0 Not Available [facility] (Lab) [address] [place], [address], 02/28/2022 19:32:14 02/29/20 22 02/28/2022 CBC/C OMPLE TE BLD COUNT W/DIF F lymphocytes, absolute count 1.93 x10'3 /uL 1.07-3 .43 Not Available [facility] (Lab) [address] [place], [address], 02/28/2022 19:32:14 02/29/20 22 02/28/2022 CBC/C OMPLE TE BLD COUNT W/DIF F monocytes, absolute count 0.77 x10'3 /uL 0.29-0 .99 Not Available [facility] (Lab) [address] [place], [address], 02/28/2022 19:32:14 02/29/20 22 02/28/2022 CBC/C OMPLE TE BLD COUNT W/DIF F eosinophils, absolute count 0.22 x10'3 /uL 0.02-0 .53 Not Available [facility] (Lab) [address] [place], [address], 02/28/2022 19:32:14 02/29/20 22 02/28/2022 CBC/C OMPLE TE BLD COUNT W/DIF F basophils, absolute count 0.05 x10'3 /uL 0.01-0 .08 Not Available [facility] (Lab) [address] [place], [address], 02/28/2022 19:32:14 02/29/20 22 02/28/2022 CBC/C OMPLE TE BLD COUNT W/DIF F immature granulocytes ,absolute 0.03 x10'3 /uL 0.00-0 .05 Not Available [facility] (Lab) [address] [place], [address], 02/28/2022 19:32:14 02/29/20 22 02/28/2022 CBC/C OMPLE TE BLD COUNT W/DIF F nucleated red blood cells 0.0 % -0 Not Available [facility] (Lab) [address] [place], [address], 02/28/2022 19:32:14 02/29/20 22 02/28/2022 CBC/C OMPLE TE BLD COUNT W/DIF F NRBC# 0.00 x10'3 /uL Not Available [facility] (Lab) [address] [place], [address], 02/28/2022 19:32:14 06/29/19 23 06/28/2022 XR, knee No observ ation record ed. [address] [address], [place], [address], 12/11/2022 14:00:39 11/09/19 23 11/08/2022 CT, abdom en + pelvi s, w/o contr ast No observ ation record ed. [address] [address], [place], [address], 12/11/2022 14:01:03 11/09/19 23 11/08/2022 XR, abdom en No observ ation record ed. [address] [address], [place], [address], 12/11/2022 14:01:33 11/14/19 23 11/13/2022 XR, abdom en No observ ation record ed. [address] [facility] [address], [place], [address], 12/11/2022 14:01:57 11/15/19 23 11/13/2022 CT, abdom en + pelvi s, w/wo contr ast No observ ation record ed. [address] [facility] [address], [place], [address], 12/11/2022 14:03:09 11/24/19 23 11/23/2022 XR, abdom en + pelvi s No observ ation record ed. [email or web address] [address], [place], [address], 12/11/2022 14:06:09 12/28/19 23 12/27/2022 XR, shoul janay No observ ation record ed. [address], [place], [address], 02/17/2023 12:58:44 03/03/20 23 03/03/2023 MRI, shoul janay, w/o contr ast No observ ation record ed. [address], [place], [address], 03/23/2023 21:56:04 05/22/19 24 05/22/2023 XR, kidne y + urete r + bladd er No observ ation record ed. [email or web address] [address], [place], [address], 06/28/2023 14:05:08 Result Notes None recorded. Problems Name Problem SNOMED Code Status Onset Date Resolution Date Notes Provider Name and Address Organization Details Recorded Time Pain of left shoulder joint 02651217322 389760 Active 2022 BRENDAN Carr, [place] - [facility] 3 12:38:52 Edema of lower extremity 210514090 Active 2022 BRENDAN Carr, [place] - [facility] 3 12:38:52 Benign essential hypertens ion 6498336 Active BRENDAN Carr, [place] - [facility] 3 12:38:52 Nocturia 161183802 Active 2021 BRENDAN Carr, [facility] [facility] 3 12:38:52 Respirato ry symptom [id number] Completed Not Available [facility] 3 04:53:04 Headache 75449627 Active Clarcuong Yahl, RMA null[place] [facility] 3 12:38:52 Benign prostatic hyperplas ia 111951479 Active 2021 Claria Yahl, RMA null, [place] [facility] 3 12:38:52 Pure hyperchol esterolem ia 905250463 Active Claria Yahl, RMA null, [place] [facility] 3 12:38:52 Low back pain 190941725 Active Claria Yahl, RMA null, [place] [facility] 3 12:38:52 Lump on thigh 920945892 Completed Not Available [facility] 3 04:53:05 Elevated blood-pre ssure reading without diagnosis of hypertens ion 132847812 Active Clarcuong Yahl, RMA null, [place] [facility] 3 12:38:52 Arthropat hy of joint of hand 672478657 Active Claria Yahl, RMA null[place] [facility] 3 12:38:52 Anxiety 74998495 Active 2020 Claria Yahl, RMA null, [place] [facility] 3 12:38:52 Essential hypertens ion 10295413 Active 2020 Jerzyia Yahl, RMA null, [place] [facility] 3 12:38:52 Dyspnea on exertion 42610255 Active Claria Yahl, RMA [place] [facility] [facility] 3 12:38:52 Allergic rhinitis 96333989 Active Claria Yahl, RMA null[place] [facility] 3 12:38:52 Obstructi ve sleep apnea syndrome 33912957 Active Claria Yahl, RMA [place] [facility] 3 12:38:52 Fatigue 88629177 Active 2021 Claria Yahl, RMA null[place] [facility] [place] [facility] 3 12:38:52 Chronic rhinitis 64788066 Completed Not Available [facility] 04:53:05 Pain in limb 53644681 Active BRENDAN Carr, [facility] 3 12:38:52 Skin lesion 54982876 Completed Not Available [facility] 04:53:06 Problem Notes None recorded. Procedures Surgical History Date Name Laterality Status Provider Name and Address Organization Details Recorded Time 10/05/19 18 Colonoscopy completed Not Available [facility] 05/18/19 04:42:34 04/30/19 14 Exc thigh/knee les sc < 3 cm completed Not Available [facility] 05/17/2022 04:42:34 09/18/19 08 Colonoscopy completed Not Available [facility] 05/18/19 04:42:34 other completed Not Available [facility] 03/2022 04:42:34 procedure on nasal septum completed Not Available [facility] 05/17/2022 04:42:34 endoscopic balloon dilation of ostium of paranasal sinus completed Not Available [facility] 05/17/2022 04:42:34 Dental completed Not Available [facility] 03/2022 04:42:34 Tonsillectomy completed Not Available [facility] 05/17/2022 04:42:34 Imaging Results Imaging Date Name Status LastModified by Organiz ation Details LastModified Time 06/28/2022 XR, knee completed [email or web address] [address], [address], 12/11/2022 14:00:39 11/08/2022 CT, abdomen + pelvis, w/o contrast completed [email or web address] [address], [address], 12/11/2022 14:01:03 11/08/2022 XR, abdomen completed [address], [address], 12/11/2022 14:01:33 11/13/2022 XR, abdomen completed [email or web address] [facility] [address], [place], [address], 12/11/2022 14:01:57 11/13/2022 CT, abdomen + pelvis, w/wo contrast completed [address] [facility] [address], [place], [address], 12/11/2022 14:03:09 11/23/2022 XR, abdomen + pelvis completed [address] [place] [address], [address], 12/11/2022 14:06:09 12/27/2022 XR, shoulder completed [address] [facility], [place], [address], 02/17/2023 12:58:44 03/03/2023 MRI, shoulder, w/o contrast completed [address] [facility], [place], [address], 03/23/2023 21:56:04 05/22/2023 XR, kidney + ureter + bladder completed [email or web address] [place] [address] [address]te [facility], [place], [address], 06/28/2023 14:05:08 Procedure Notes None recorded. Medical [...] administe red by the provider 11/27 completed [facility]: 0003- 0494- 20 Not Available Not Available [...] administe red by the provider 11/27 completed [facility]: 0409- 4276- 17 Not Available Not Available [...] Not Available Not Available Not Available Fluvirin 8905-9086 45 mcg (15 mcg x 3)/0.5 mL intramuscul ar suspension INJECT 0.5 ML INTRAMUSC ULARLY DIRECTED. active Not Available Not Available No t Available Fluzone High-Dose (PF) 180 mcg/0.5 mL intramuscul ar syringe active Not Available Not Available N ot Available Fluzone High-Dose 2982-7319 (PF) 180 mcg/0.5 mL intramuscul ar syringe ADM 0.5ML IM UTD 05/04 completed Not Available Not Available Not Available Fluzone High-Dose 9279-5826 (PF) 180 mcg/0.5 mL intramuscul ar syringe ADM 0.5ML IM UTD 06/21 completed Not Available Not Available Not Available Shingrix (PF) 50 mcg/0.5 mL intramuscul ar suspension, kit 10/29 completed Not Available Not Available Not Available Fluzone High-Dose 3002-3874 (PF) 180 mcg/0.5 mL intramuscul ar syringe ADM 0.5ML IM UTD 01/01 completed Not Available Not Available Not Available Fluzone High-Dose (PF) 180 mcg/0.5 mL intramuscul ar syringe ADM 0.5ML IM UTD 04/24 completed Not Available Not Available Not Available Fluad Quad 7718-9123(6 5yr up)(PF) 60 mcg (15 mcg x 4)/0.5mL IM syringe ADM 0.5ML IM UTD 08/03 completed Not Available Not Available Not Available Vitals Date Recorded Body mass index (BMI) Body height Heart rate Body temperature Body weight Systolic blood pressure Diastolic blood pressure Provider Name and Address Organization Details Last Updated DateTime 2 34.7 kg/m2 180.34 cm 78 /min 97.9 [degF] 373220. 5 g 136 mm[Hg] 70 mm[Hg] Not Available [facility] 3 04:45:35 Date Recorded Body mass index (BMI) Body height Heart rate Body temperature Body weight Systolic blood pressure Diastolic blood pressure Provider Name and Address Organization Details Last Updated DateTime 2 34.9 kg/m2 180.34 cm 72 /min 96.4 [degF] 024218. 09 g 150 mm[Hg] 80 mm[Hg] Not Available [facility] 3 04:45:35 Date Recorded Body mass index (BMI) Body height Pain severity - 0-10 verbal numeric rating [Score] - Reported Heart rate Body temperature Body weight Systolic blood pressure Diastolic blood pressure Provider Name and Address Organization Details Last Updated DateTime 2 34 kg/m2 180.34 cm 0 63 /min 98.3 [degF] 756054. 54 g 132 mm[Hg] 78 mm[Hg] Not Available [facility] 3 04:45:35 Date Recorded Body height Body mass index (BMI) Body weight Body temperature Heart rate Systolic blood pressure Diastolic blood pressure Provider Name and Address Organization Details Last Updated DateTime 3 180.34 cm 35.1 kg/m2 291260. 28 g 97.6 [degF] 67 /min 156 mm[Hg] 82 mm[Hg] [facility] 3 12:34:10 Date Recorded Body height Body mass index (BMI) Body weight Body temperature Heart rate Systolic blood pressure Diastolic blood pressure Provider Name and Address Organization Details Last Updated DateTime 3 180.34 cm 35.6 kg/m2 671536. 05 g 97.3 [degF] 71 /min 130 mm[Hg] 82 mm[Hg] BRENDAN Mccauley [facility] 3 11:42:02 Social History Question Answer Notes LastModified by Organization Details LastModified Time Tobacco Smoking Status Never Smoker Not Available [facility] 05/17/2022 04:19:55 Do You Have An Advance Directive? No MIGRATION.0301 [id number] Information not available 05/17/2022 What Is Your Level Of Alcohol Consumption? Occasional MIGRATION.0301 490129 Information not available 05/17/2022 Are You Blind Or Do You Have Difficulty Seeing? No MIGRATION.0301 999489 Information not available 05/17/2022 What Is Your Level Of Caffeine Consumption? Occasional MIGRATION.0301 376909 Information not available 05/17/2022 How Much Tobacco Do You Chew? None MIGRATION.0301 168434 Information not available 05/17/2022 In The 14 Days Before Symptom Onset, Have You Had Close Contact With A Laboratory-conf irmed COVID-19 While That Case Was Ill? No MIGRATION.0301 398523 Information not available 05/17/2022 In The 14 Days Before Symptom Onset, Have You Had Close Contact With A Person Who Is Under Investigation For COVID-19 While That Person Was Ill? No MIGRATION.0301 608744 Information not available 05/17/2022 Are You Deaf Or Do You Have Serious Difficulty Hearing? No MIGRATION.0301 786454 Information not available 05/17/2022 What Type Of Diet Are You Following? REGULAR MIGRATION.0301 979120 Information not available 05/17/2022 Which Illicit Or Recreational Drugs Have You Used? None MIGRATION.030 854751 Information not available 05/17/2022 Do You Or Have You Ever Used E-cigarettes Or Vape? Never Used Electronic Cigarettes MIGRATION.030 813264 Information not available 05/17/2022 What Is The Highest Grade Or Level Of School You Have Completed Or The Highest Degree You Have Received? [id number] MIGRATION.030 827642 Information not available 05/17/2022 What Is Your Occupation? Retired MIGRATION.030 517795 Information not available 05/17/2022 Have There Been Any Changes To Your Family Or Social Situation? No MIGRATION.0301 942857 Information not available 05/17/2022 What Is The Fluoride Status Of Your Home? Unknown MIGRATION.0301 424850 Information not available 05/17/2022 Are There Any Guns Present In Your Home? Yes MIGRATION.0301 959405 Information not available 05/17/2022 Do You Use Insect Repellent Routinely? No MIGRATION.0301 951049 Information not available 05/17/2022 Where Do You Live? SingleLevelHouse With Basement MIGRATION.0301 065103 Information not available 05/17/2022 Do You Have A Medical Power Of Telephone Plant Power Operator? No MIGRATION.0301 806720 Information not available 05/17/2022 What Was The Date Of Your Most Recent Tobacco Screening? 12/07/2022 [email or web address] Information not available 12/07/2022 Have You Ever Been Counseled For Unhealthy Alcohol Use? No MIGRATION.0301 682068 Information not available 05/17/2022 Do You Have Any Pets? Yes MIGRATION.0301 381413 Information not available 05/17/2022 What Is Your Relationship Status? MIGRATION.0301 398507 Information not available 05/17/2022 Do You Use Your Seat Belt Or Car Seat Routinely? Yes MIGRATION.0301 968390 Information not available 05/17/2022 Do You Have Smoke And Carbon Monoxide Detectors In Your Home? Yes MIGRATION.0301 825480 Information not available 05/17/2022 Are You Passively Exposed To Smoke? No MIGRATION.0301 781100 Information not available 05/17/2022 Do You Or Have You Ever Used Smokeless Tobacco? Never Used Smokeless Tobacco MIGRATION.0301 173672 Information not available 05/17/2022 Are There Any Smokers In Your House? No MIGRATION.0301 830909 Information not available 05/17/2022 How Much Tobacco Do You Smoke? No MIGRATION.0301 418378 Information not available 05/17/2022 What Types Of Sporting Activities Do You Participate In? Golf MIGRATION.0301 645919 Information not available 05/17/2022 Do You Feel Stressed (tense, Restless, Nervous, Or Anxious, Or Unable To Sleep At Night)? [id number] MIGRATION.0301 862720 Information not available 05/17/2022 Do You Use Any Illicit Or Recreational Drugs? No MIGRATION.0301 331134 Information not available 05/17/2022 Do You Use Sunscreen Routinely? No MIGRATION.0301 955790 Information not available 05/17/2022 Has Tobacco Cessation Counseling Been Provided? No Not Needed-nev er Smoked MIGRATION.0301 068446 Information not available 05/17/2022 How Many Years Have You Smoked Tobacco? 0 MIGRATION.0301 008225 Information not available 05/17/2022 Have You Recently Traveled Abroad? No MIGRATION.0301 954067 Information not available 05/17/2022 Do You Have Any Dietary Restrictions? No MIGRATION.0301 855435 Information not available 05/17/2022 Do You Or Have You Ever Used Any Other Forms Of Tobacco Or Nicotine? No MIGRATION.0301 610469 Information not available 05/17/2022 Sex: Male Functional Status Question Answer Note LastModified by Organizat ion Details LastModified Time Do you have difficulty walking or climbing stairs? No MIGRATION.3134661 026 Information not available 05/17/2022 Do you have transportation difficulties? No MIGRATION.6577491 026 Information not available 05/17/2022 Are you able to walk? YESWOREST MIGRATION.2662394 026 Information not available 05/17/2022 Do you have difficulty doing errands alone? No MIGRATION.2707821 026 Information not available 05/17/2022 Are you able to care for yourself? Yes MIGRATION.3162815 026 Information not available 05/17/2022 Do you have difficulty dressing or bathing? No MIGRATION.9479407 026 Information not available 05/17/2022 What is your exercise level? Moderate MIGRATION.5911132 026 Information not available 05/17/2022 Mental Status Question Answer Note LastModified by Organizat ion Details LastModified Time Do you have difficulty concentrating, remembering or making decisions? No MIGRATION.508772432 6 Information not available 05/17/2022 Family History Relationship Description Onset Age of this Age Resolved Age Notes LastModified by Organization Details LastModified Time Father Heart disease MIGRATION.976 [id number] Not available 05/17/2022 04:42:37 Sister Malignant tumor of breast MIGRATION.579 1593263 Not available 05/17/2022 04:42:37 Unspecified Relation Family history of diabetes mellitus MIGRATION.926 1715294 Not available 05/17/2022 04:42:37 Unspecified Relation Family history of stroke MIGRATION.074 7747996 Not available 05/17/2022 04:42:37 Unspecified Relation Family history of Hypertension MIGRATION.235 1277858 Not available 05/17/2022 04:42:37 Unspecified Relation Family history of malignant neoplasm MIGRATION.113 1247137 Not available 05/17/2022 04:42:37 Medical History Condition Response NERVE DISEASE N BLINDNESS N RHEUMATIC FEVER N KIDNEY STONES N BLADDER PROBLEMS N MRSA N OTHER # 1 N POLIO N LUNG DISEASE/DISORDER N RADIATION / CHEMOTHERAPY N COPD N Other # 2 N BLOOD DISEASES N EAR OR HEARING PROBLEMS N MUMPS N BOWEL PROBLEMS N DEPRESSION (INCLUDING POST ) N STROKE/TIA N ULCERS N BENIGN PROSTATIC [...] N CHRONIC PAIN SYNDROME N HYPOTHYROIDISM N CONSTIPATION N CAROTID BLOCKAGE N BACK / NECK PROBLEMS N HAVE YOU BEEN HOSPITALIZED OR SEEN IN [facility] IN THE PAST YEAR ? N ATHEROSCLEROSIS [...] virus (RSV), unspecified 3 completed BRENDAN Carr [facility] 12/12/2022 15:11:54 Influenza, high-dose, quadrivalent, PF 3 completed BRENDAN Carr [facility] 12/12/2022 15:12:26 COVID-19, mRNA, LNP-S, PF, 100 mcg/0.5mL dose or 50 mcg/0.25mL dose 1 completed Not Available [facility] 05/17/2022 05:05:30 COVID-19, mRNA, LNP-S, PF, 100 mcg/0.5mL dose or 50 mcg/0.25mL dose 1 completed Not Available [facility] 05/17/2022 05:05:30 COVID-19, mRNA, LNP-S, PF, 100 mcg/0.5mL dose or 50 mcg/0.25mL dose 1 completed Not Available [facility] 05/17/2022 05:05:30 Influenza, high-dose, trivalent, PF 9 completed Not Available [facility] 05/17/2022 05:05:30 zoster recombinant 9 completed Not Available [facility] 05/17/2022 05:05:30 zoster, unspecified formulation 9 completed Not Available [facility] 05/17/2022 05:05:31 Influenza, high-dose, trivalent, PF 8 completed Not Available [facility] 05/17/2022 05:05:31 Influenza, high-dose, trivalent, PF 7 completed Not Available [facility] 05/17/2022 05:05:31 Influenza, high-dose, trivalent, PF 6 completed Not Available [facility] 05/17/2022 05:05:31 Influenza, split virus, trivalent, preservative 4 completed Not Available [facility] 05/17/2022 05:05:31 Influenza, high-dose, quadrivalent, PF 2 completed Not Available [facility] 05/17/2022 05:05:31 COVID-19, mRNA, LNP-S, PF, 100 mcg/0.5mL dose or 50 mcg/0.25mL dose 2 completed Not Available [facility] 05/17/2022 05:05:31 Influenza, high-dose, trivalent, PF 0 completed Not Available [facility] 05/17/2022 05:05:31 influenza, unspecified formulation 5 completed Not Available [facility] 05/17/2022 05:05:31 Td (adult), 5 Lf tetanus toxoid, preservative free, adsorbed 1 completed Not Available [facility] 05/17/2022 05:05:32 pneumococcal polysaccharide PPV23 8 completed Not Available [facility] 05/17/2022 05:05:32 Pneumococcal conjugate PCV 13 5 completed Not Available [facility] 05/17/2022 05:05:32 Past Encounters Encounter ID Performer Location Encounter Start Date Encounter Closed Date Diagnosis/Indication Diagnosis SNOMED-CT Code Diagnosis ICD10 Code Diagnosis Note [id number] [facility] [place] [address] [facility] [address] , [place] [address] 08/03/2020 00:00:00 08/03/2020 21:12:31 [id number] [facility] [address] [place] [address], [facility] [address] [place] [address] 09/13/2020 00:00:00 09/13/2020 21:39:57 [id number] [facility] [place] [address] [facility] [address] , [place] [address] 11/16/2020 00:00:00 11/22/2020 12:13:27 [id number] [facility] [place] [address] [facility] [address] , [place] [address] 05/10/2021 00:00:00 05/14/2021 12:41:09 [id number] [facility] [place] [address] [place] [address] [place] [address] 09/06/2021 00:00:00 09/11/2021 16:24:38 [id number] [facility] [place] [address] [facility] [place] [address] 02/28/2022 00:00:00 02/28/2022 14:02:49 [id number] Dandre Huffman MD [facility] [place] [address] [place] [address] [place] [address] 05/30/2022 11:38:30 05/30/2022 13:04:21 Essential hypertension 71527708 I10 Edema of l ower extremity 670054431 R60.0 [id number] Dandre Huffman MD [facility] [place] [address] [facility] [place] [address] 12/07/2022 11:34:19 12/07/2022 12:31:38 Pain of left shoulder joint 9403878336 1693153 M25.512 Essential hypertension 17178816 I10 Edema of l ower extremity 990353279 R60.0 Pure hypercholesterolemia 115385918 E78.00 Health Concerns Section Related Observation LastModified by Organization Detai ls LastModified Time None Recorded Concern Status LastModified by Organization Details LastModified Time None Recorded Advance Directives Directive N: Payers Encounter Date Sequence Insurance Name Policy Number Policy Ramirez Covered Member ID Ramirez Member ID Guarantor Name 05/30/2022 1 [place] Ricardosophia [id number] [place] Velez Jackson 05/30/2022 2 [employer] - PLAN N (MEDICARE SUPPLEMENT) [place] Velez Jackson [id number] [place] Velez Jackson 12/07/2022 1 [place] Ricardosophia [id number] [place] Velez Jackson 12/07/2022 2 [employer] - PLAN N (MEDICARE SUPPLEMENT) [place] Velez Jackson [id number] [place] Velez Jackson Notes Date Note Type Note Provider Name and Address Organization Details Recorded Time 05/31/19 23 text/htm l a edema no shortness of breath did not take his hydrochlorothiazidechronic rhinitis about the samesleep apnea variable compliance Dandre Huffman MD [address], [place], [address], [employer] 05/30/2022 21:59:36 12/08/19 23 text/htm l Hyperlipidemia tries to watch diet still has problems with rhinitis problems with his left shoulder as well been going on for well hypertension no headache or dizziness Dandre Huffman MD [address], [place], [address], [employer] 12/08/2022 08:52:42
--- OUTSIDE RECORDS SUMMARY | 2024-05-09 07:14 | XMS_ITS | Clinical Summary ---
Author Organization [facility] Address [address] [place] [address] Care Team Providers Care Divemaster Name Role Phone Unavailable Primary Care Provider [...]
--- OUTSIDE RECORDS SUMMARY | 2024-05-09 07:14 | XMS_ITS | Referral Summary ---
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
--- OUTSIDE RECORDS SUMMARY | 2024-05-09 07:14 | XMS_ITS | Clinical Summary ---
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
--- OUTSIDE RECORDS SUMMARY | 2024-05-09 07:14 | XMS_ITS ---
Author Organization [facility] Address [address] [place] [address] Care Team Providers Care Motor Hotel Manager Name Role Phone Forrest Castañeda Primary Care Provider Silva Thomas Unavailable [phone] REASON FOR VISIT SCIT - Traditional Schedule Allergy immunotherapy Medications Medication SIG (Take, Route, Frequency, Duration) Notes Start Date End Date Status TAMSULOSIN 0.4 mg 1 cap(s) orally once a day Active MONTELUKAST 10 mg 1 tab(s) orally once a day for 30 day(s) Active ASPIRIN Active SONG Active HYDROCHLOROTHIAZIDE 25 mg 1 tab(s) orally once a day Active SIT (TRADITIONAL) variable per schedule SC per schedule for to be determined Active TESTOSTERONE enanthate 50 mg/0.5 mL as directed subcutaneously once a week Active AZELASTINE NASAL 137 mcg/inh 2 spray(s) intranasally 2 times a day for 30 day(s) 06/06/2023 Active SIT (TRADITIONAL) VARIABLE PER SCHEDULE SC PER SCHEDULE for TO BE DETERMINED *Please review for potential replacement for e-prescription and drug interaction check* 06/06/2023 Active EpiPen 2-Francisco 0.3 MG/0.3ML as directed intramuscularly once for 1 days 04/02/2023 Active Aspirin *Please review and pick correct strength-formula tion from [employer] options. If intended option is not shown, discontinue and re-order from Quick Search* Active Song Allergy *Please review and pick correct strength-formula tion from [employer] options. If intended option is not shown, discontinue and re-order from Quick Search* Active hydroCHLOROthiazide 25 MG 1 tab(s) orally once a day Active Tamsulosin HCl 0.4 MG 1 cap(s) orally on ce a day Active Montelukast Sodium 10 MG 1 tab(s) orally once a day for 30 day(s) Active Testosterone ENANTHATE 50 MG/0.5 ML DIRECTED SUBCUTANEOUSLY ONCE A WEEK *Please review and pick correct strength-formula tion from [employer] options. If intended option is not shown, discontinue and re-order from Quick Search* Active Azelastine HCl 137 MCG/SPRAY 2 spray(s) intranasally 2 times a day for 30 day(s) 06/06/2023 Active AZELASTINE NASAL 137 mcg/inh 2 spray(s) intranasally 2 times a day for 30 day(s) 06/06/2023 Active EPIPEN 2-FRANCISCO 0.3 mg as directed intramuscularly once for 1 days 04/02/2023 Active Encounters Encounter Location Date Provider Diagnosis [facility] [address] [place] [address] 05/07/2024 Silva Lafleur Allergic rhinitis du e to pollen J30.1 ; Allergic rhinitis due to animal (cat) (dog) hair and dander J30.81 ; Other allergic rhinitis J30.89 and Other chronic allergic conjunctivitis H10.45 Assessments Encounter Date Diagnosis (ICD Code) Assessment Notes Treatment Notes Treatment Clinical Notes Section Notes 05/07/2024 Allergic rhinitis due to pollen (ICD-10 - J30.1) 05/07/2024 Allergic rhinitis due to animal (cat) (dog) hair and dander (ICD-10 - J30.81) 05/07/2024 Other allergic rhinitis (ICD-10 - J30.89) 05/07/2024 Other chronic allergic conjunctivitis (ICD-10 - H10.45) Plan Of Treatment Medication Medication Name Sig Start Date Stop Date Notes SIT (TRADITIONAL) variable per schedule SC per schedule for to be determined Next Appt Details Follow Up: 1 Week, Reason: Provider Name:Silva marie, 05/14/2024 09:30:00 AM, [address], [address], [place], [address], Provider Name:Silva marie, 05/21/2024 10:00:00 AM, [address], [address], [place], [address], Provider Name:Silva marie, 06/04/2024 10:00:00 AM, [address] [facility], [address], [place], [address], Progress Notes * Zaire WRIGHTDOB:1950 (73 yo M)Acc No.[id number]:05/07/2024 SCIT-Aeroallergen Patient: Zaire RHODES Provider: Miguel Lafleur MD :1950 A ge:73 Y S ex:Male Date:05/07/2024 Address:[address] [place] [address] [facility] Pcp:Forrest Castañeda Subjective: * Chief Complaints: * [...] *Please review and pick correct strength-formulation from [employer] options. If intended option is not shown, discontinue and re-order from Quick Search*Tamsulosin HCl 0.4 MG Capsule 1 cap(s) orally once a day hydroCHLOROthiazide 25 MG Tablet 1 tab(s) orally once a day Song Allergy , Notes to Pharmacist: *Please review and pick correct strength-formulation from [employer] options. If intended option is not shown, discontinue and re-order from Quick Search*Aspirin , Notes to Pharmacist: *Please review and pick correct strength-formulation from [employer] options. If intended option is not shown, [...] *Please review and pick correct strength-formulation from [employer] options. If intended option is not shown, discontinue and re-order from Quick Search*Taking Tamsulosin HCl 0.4 MG Capsule 1 cap(s) orally once a day Taking hydroCHLOROthiazide 25 MG Tablet 1 tab(s) orally once a day Taking Song Allergy , Notes to Pharmacist: *Please review and pick correct strength-formulation from [employer] options. If intended option is not shown, [...] Information: * Visit Code: * Procedure Codes: 21284 IMMUNOTHERAPY INJECTIONS. * ECTIONS ASSOCIATE Sign off status: Completed true * Provider: Miguel Lafleur MD Date: 05/07/2024 Generated for Marcos calix/Kleber/Beulah on: 05/09/2024 07:13 AM COLLECTIONS ASSOCIATE History and Physical Notes * HPI (History [...]
--- OUTSIDE RECORDS SUMMARY | 2024-05-09 07:14 | XMS_ITS | Encounter Summary ---
Author Organization [facility] Address [address] [place] [place] [address] Care Team Providers Care Furniture Dipper Name Role Phone Unavailable Primary Care Provider Unavailabl e Encounter Details Date Type Department Care Team (Late st Contact Info) Description 05/08/2023 Lab Requisition [facility] - DermPath Lab [address] [place] [phone] Adarsh Bryant MD [address] [place] [address] Social History Tobacco Use Types [...] Diagnosis Comments DERMATOPATHOLOGY Routine 05/07/2023 3:33 AM MARINE FIRER documented in this encounter Results * DERMATOPATHOLOGY (05/07/2023 3:33 AM MARINE FIRER) Case Report Dermatopathology Report Case: [id number] Authorizing Provider: Adarsh Bryant MD Collected: 05/07/2023 03:33 AM Ordering Location: [facility] DermPath Lab Received: 05/08/2023 12:52 PM Pathologist: Laurel Lizarraga MD Specimens: A) - Skin, left mid paraspinal back B) - Skin, left lower lat back 3:01 PM [facility]INE [facility] DERMATOPATHOLOGY LABORATORY Final Diagnosis Specimen A. 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 The specimen consists of a shave biopsy measuring [id number] mm. Jar 0. Specimen B: Received is one formalin filled container labeled with the patient's name and designated left lower lat back. The specimen consists of a shave biopsy measuring [id number] mm. Jar 0. 4 3:01 PM [facility] DERMATOPATH[facility]Y [facility] Microscopic Description Specimen A. SKIN, left mid paraspinal back: The epidermis is mildly acanthotic. There is a lichenoid infiltrate with vacuolar changes of basilar keratinocytes and scattered necrotic keratinocytes. Specimen B. SKIN, left lower lat back: The epidermis is mildly acanthotic. There is a lichenoid infiltrate with vacuolar changes of basilar keratinocytes and scattered necrotic keratinocytes. 4 3:01 PM [facility] DERMATOPATH[facility]Y [facility]ORAT[facility] Disclaimer An external and internal positive and negative controls are appropriate for the histochemical, immunohistochemical and immunofluorescence stain(s) in this case (if any), except where stated explicitly. The performance characteristics of the stain(s) cited in this report were developed and its performance characteristic determined by the Dermatopathology Laboratory at [facility], directed by Dr. Robby Juarez. These tests need not be, and therefore are not, approved by the [place] Food and Drug Administration. The tests are used for clinical purposes. Billing Codes Specimen Charges Stain Charges 48795 36092 1 1 4 3:01 PM [facility] DERMATOPATHOLOGY LABORATORY Embedded Images 4 3:01 PM [facility] Pathology/Cytology TISSUE SPECIMEN FROM SKIN / Unknown 05/07/2023 3:33 AM MARINE FIRER 05/08/2023 12:52 PM MARINE FIRER Miscellaneous samples (specimen) TISSUE SPECIMEN FROM SKIN / Unknown 05/07/2023 3:33 AM MARINE FIRER 05/08/2023 12:52 PM MARINE FIRER Adarsh D Manny MD LAB - PATHOLOGY/CYTO LOGY ORDERABLES DERMATOPATHOLOGY LABORATORY [facility] - Department of Dermatology [facility] Medicine [address] [place] [address], [address] [phone] documented in this encounter Visit Diagnoses Not on filedocumented in this encounter
--- OUTSIDE RECORDS SUMMARY | 2024-05-09 07:15 | XMS_ITS ---
Author Organization [facility] Address [address] [place] [address] Care Team Providers Care Sap Grc Security Name Role Phone Forrest Castañeda Primary Care Provider Silva Thomas Unavailable [phone] REASON FOR VISIT SCIT - Traditional Schedule Allergy immunotherapy Medications Medication SIG (Take, Route, Frequency, Duration) Notes Start Date End Date Status Testosterone ENANTHATE 50 MG/0.5 ML DIRECTED SUBCUTANEOUSLY ONCE A WEEK *Please review and pick correct strength-formula tion from [employer] options. If intended option is not shown, [...] review and pick correct strength-formula tion from [employer] options. If intended option is not shown, discontinue and re-order from Quick Search* Active Song Allergy *Please review and pick correct strength-formula tion from [employer] options. If intended option is not shown, discontinue and re-order from Quick Search* Active Encounters Encounter Location Date Provider Diagnosis [facility] [address] [place] [address] 03/05/2024 Silva Lafleur Allergic rhinitis du e [...] Provider Name:Silva marie, 05/14/2024 09:30:00 AM, [address], [address], [place], [address], Provider Name:Silva marie, 05/21/2024 10:00:00 AM, [address], [place], [address], Provider Name:Silva marie, 06/04/2024 10:00:00 AM, [address] [facility], [address], [place], [address], Progress Notes * Zaire WRIGHTDOB:1950 (73 yo M)Acc No.[id number]:03/05/2024 SCIT-Aeroallergen Patient: Zaire RHODES Provider: Miguel Lafleur MD :1950 A ge:73 Y S ex:Male Date:03/05/2024 Address:[address] [place], [place] [address] Pcp:Forrest Castañeda Subjective: * Chief Complaints: * [...] *Please review and pick correct strength-formulation from [employer] options. If intended option is not shown, discontinue and re-order from Quick Search*Tamsulosin HCl 0.4 MG Capsule 1 cap(s) orally once a day hydroCHLOROthiazide 25 MG Tablet 1 tab(s) orally once a day Song Allergy , Notes to Pharmacist: *Please review and pick correct strength-formulation from [employer] options. If intended option is not shown, discontinue and re-order from Quick Search*Aspirin , Notes to Pharmacist: *Please review and pick correct strength-formulation from [employer] options. If intended option is not shown, [...] *Please review and pick correct strength-formulation from [employer] options. If intended option is not shown, discontinue and re-order from Quick Search*Taking Tamsulosin HCl 0.4 MG Capsule 1 cap(s) orally once a day Taking hydroCHLOROthiazide 25 MG Tablet 1 tab(s) orally once a day Taking Song Allergy , Notes to Pharmacist: *Please review and pick correct strength-formulation from [employer] options. If intended option is not shown, [...] Information: * Visit Code: * Procedure Codes: 80472 IMMUNOTHERAPY INJECTIONS. * TRATOR OPERATOR Sign off status: Completed true * Provider: Miguel Lafleur MD Date: 05/06/2023 Generated for Marcos calix/Kleber/Beulah on: 0 05/09/2024 07:14 AM DENITRATOR OPERATOR History and Physical Notes * HPI [...]
--- OUTSIDE RECORDS SUMMARY | 2024-05-09 07:15 | XMS_ITS | Continuity of Care Document ---
Author Organization [facility] Address [address] [place] [address] Phone Care Team Providers Care Informatics Application Analyst Name Role Phone Orellana OD, Tony Unavailable Unavailable Procedures Procedure Date Refraction Office/outpatient Visit, Est Progressive Lens, Plastic Frames Deluxe Tint Photochromatic, Plastic Tax - Medical Eye Exam & Treatment Refraction Eye Exam & Treatment Refraction Advance Directives Directive Yes / No Effective Date File Name No Information Encounters Encounter Description Practice Location Reason(s) For Visit Diagnoses Date Provider Providers Copied on Encounter [facility], [address] [place] [address] [address], [place], [place], [id number], [place] tel:[phone] SEC [facility] No Information 2-201 0 Orellana OD Tony. [address] , [address], [place], [place], [facility], . tel:[phone] Office/outpat ient Visit, Est [facility], [address], [place], [place], [id number], [place] tel:[phone] SEC [facility] No Information 4-200 9 Doisy Edmak. [address], [address], [place], [place], [facility], [place]. tel:[phone] [facility], [address], [place], [place], [id number], [place] tel:[phone] SEC Former[facility] named [facility] No Information 8 [employer] . [address], [address], [place], [place], [address], [place]. tel:[phone] Referring Provider: Gregory Ram, [address] [place] [address] [address], [place], [address]. tel:[phone] sulting Provider: Khoa Stephens, [address] [place], [place] [address]ate [facility], [place], [place], [facility]. tel:[phone] [facility], [address], [place], [place], [id number], tel:[phone] SEC Formerly named [facility] No Information 8 Khang Jenkins. [address] [place] [address] , [address], [place], [place], [facility], [place]. tel:[phone] [facility], [address] [place] [address] [address], [place], [place], [address], [place] tel:[phone] SEC Formerly named [facility] No Information 7 Khang Jenkins. [address] [place] [address] , [address], [place], [address], [place]. tel:[phone] Family History Family Member Type Diagnosis Age [...]
[2024-05-09 08:28] LABS: Hemoglobin A1C 6.1 % (<5.7)
== END 2024-05-09 07:08 | disposition home or self-care (01) ==
PROVIDERS: PCP Internal Medicine; Visit Provider Family Medicine
DX: R73.9 Hyperglycemia, unspecified (principal)
CPT/HCPCS: 36415; 83036

== ENCOUNTER 2024-10-14 13:22 | Outpatient (CLI) | payer MEDICARE, SELFPAY ==
--- NOTE | ~2024-10-14 | MR_ITS ---
MRI of the right hip Clinical history: Labral tear Technique: Coronal T1-weighted, T2-weighted, and proton-density fat-sat images, and axial T1-weighted and proton-density fat-sat images were acquired through the pelvis. Coronal T2-weighted images and c oronal, axial, and sagittal proton-density fat-sat images were acquired through the right hip. Findings: There is no fracture or avascular necrosis of either hip. There is amorphous marrow edema e xtensively along the superior right acetabular region, with underlying moderate chondral malacia thro ughout the superior right hip joint. There is mild diffuse chondromalacia of the left hip joint. No j oint effusion seen on either side. No evidence of right acetabular labral tear. Visualized musculature about the pelvis and right hip is intact. No muscle atrophy or edema. Visualiz ed tendons are intact. No soft tissue mass or fluid collection. Bilateral fat-containing inguinal her nias are noted. IMPRESSION: Amorphous marrow edema of the superior acetabular region. This most likely reactive due to underlying chondromalacia. Correlate for contusion or other stress response. Mild degenerative change of both hip joints, as above. No evidence of acetabular labral tear at the r ight hip. Bilateral fat-containing inguinal hernias. Reviewed, dictated and finalized at location . IMPRESSION: Amorphous marrow edema of the superior acetabular region. This most likely reac tive due to underlying chondromalacia. Correlate for contusion or other stress response. Mild degenerative change of both hip joints, as above. No evidence of acetabula r labral tear at the right hip. Bilateral fat-containing inguinal hernias.
--- NOTE | ~2024-10-14 | MR_ITS ---
MRI of the lumbar spine Clinical History: Disc protrusion Technique: Axial T2-weighted images, and sagittal T1-weighted, T2-weighted, and T2 fat-sat images wer e acquired. Findings: There is no fracture or subluxation of the lumbar spine. Vertebral bodies maintain normal h eight and alignment. There is probable developing Schmorl's node at the superior endplate region of L 3. At L1-L2, there is no disc bulge or herniation. There is mild to moderate facet arthropathy. No centr al canal stenosis or neural foraminal narrowing. At L2-L3, there is minimal disc bulge with mild facet arthropathy. No central canal stenosis or defin ite neural foraminal narrowing. At L3-L4, there is no disc bulge or herniation. There is mild facet arthropathy. No central canal walter nosis or neural foraminal narrowing. At L4-L5, there is mild disc bulge with moderate to advanced facet arthropathy. No central canal sten osis or neural foraminal narrowing. At L5-S1, there is no disc bulge or herniation. No spinal canal stenosis or neural foraminal narrowin g. Paravertebral soft tissues are unremarkable. Impression: Developing Schmorl's node at the superior endplate region of L3. Minimal degenerative change overall, as above. Reviewed, dictated and finalized at location . Impression: Developing Schmorl's node at the superior endplate region of L3. Minimal degenerative change overall, as above.
== END 2024-10-14 13:23 | disposition home or self-care (01) ==
LOC: GOSHIMG 13:23
PROVIDERS: PCP Nurse Practitioner; Visit Provider Nurse Practitioner
DX: M51.26 Other intervertebral disc displacement, lumbar region (principal); S73.191A Other sprain of right hip, initial encounter; M47.896 Other spondylosis, lumbar region; M16.0 Bilateral primary osteoarthritis of hip; K40.20 Bilateral inguinal hernia, without obstruction or gangrene, not specified as recurrent; X58.XXXA Exposure to other specified factors, initial encounter
CPT/HCPCS: 72148; 73721

== ENCOUNTER 2024-11-25 06:32 | Outpatient (CLI) | payer MEDICARE, SELFPAY ==
--- OUTSIDE RECORDS SUMMARY | 2009-04-30 05:00 | XMS_ITS | Continuity of Care Document ---
Author Organization [facility] Address [address] [place] [address] Phone Care Team Providers Care Photoflash Powder Mixer Name Role Phone Orellana OD, Tony Unavailable Unavailable Procedures Procedure Date Refraction Office/outpatient Visit, Est Progressive Lens, Plastic Frames Deluxe Tint Photochromatic, Plastic Tax - Medical Eye Exam & Treatment Refraction Eye Exam & Treatment Refraction Advance Directives Directive Yes / No Effective Date File Name No Information Encounters Encounter Description Practice Location Reason(s) For Visit Diagnoses Date Provider Providers Copied on Encounter [facility], [address] [place] [address] [address], [place], [place], [id number], [place] tel:[phone] [facility] No Information 2-201 0 Orellana OD Tony. [address] , [address], [place], [place], [facility], . tel:[phone] Office/outpat ient Visit, Est [facility], [address], [place], [place], [id number], [place] tel:[phone] [facility] No Information 4-200 9 Doisy Edmak. [address], [address], [place], [place], [facility], [place]. tel:[phone] [facility], [address], [place], [place], [id number], [place] tel:[phone] [facility] No Information 8 [facility] [employer] . [address], [address], [place], [place], [id number], [place]. tel:[phone] Referring Provider: Gregory Ram, [address] [address] [address], [place], [address]. tel:[phone] sulting Provider: Khoa Stephens, [address] [place], [place] [address]ate [facility], [place], [place], [facility]. tel:[phone] [facility], [address], [place], [place], [address], tel:[phone] [facility] No Information 8 Khang Jenkins. [address] [place] [address] , [address], [place], [place], [facility], [place]. tel:[phone] [facility], [address] [place] [address] [address], [place], [place], [id number], [place] tel:[phone] [facility] No Information 7 Khang Jenkins. [address] [place] [address] , [address], [place], [address], [place]. tel:[phone] Family History Family Member Type Diagnosis Age At Onset No Information Payers Payer name Insurance type Covered libertarian ID Authoriza tion(s) No Information Social History Type Description Quantity Date Captured Comments Sex Male Smoking Status No Information Chief Complaint And Reason For Visit No Information Reason For Referral Reason For Referral No Information History Of Present Illness Encounter Date Complaint History Of Prese nt Illness No Information Functional Status Date Functional Assessmen t No Information Instructions Date Instruction Additional Infor mation No Information Assessments Type Assessment Date No Information Patient Care Teams Name Effective Dates (start - stop) Status Members No Information
--- OUTSIDE RECORDS SUMMARY | 2024-05-29 06:40 | XMS_ITS ---
Author Organization [facility] Address [address] [place], [place] [address] Care Team Providers Care Bottom Scrubber Name Role Phone MARLA STEEL Unavailable [phone] Forrest Castañeda Unavailable Unavailable REASON FOR VISIT *General care Encounters Encounter Location Date Provider Diagnosis [facility] [place] [address] [facility] [address] [place], [place] [phone] 05/29/2024 MARLA STEEL Plan Of Treatment Next Appt Details Provider Name:MARLA GALLARDO, 01/15/2025 09:50:00 AM, [address], [place], [place], [phone], Progress Notes * ADRIANA ZaireDOB:1950 (74 yo M)Acc No.[id number]:05/29/2024 Patient: Jj ANTWONZaire LAWRENCE Provider: Jj Steel DPM :1950 A ge:73 Y S ex:Male Date:05/29/2024 Address:[address] [place] [address] [place], [place] Subjective: * Chief Complaints: * 1 . *General care. * Medical History: Objective: * Vitals: Assessment: Plan: * Treatment: * Billing Information: * Visit Code: * Procedure Codes: * Electronic signature of MARLA STEEL DPM on 11/25/2024 at 06:37 AM CDT Sign off status: Pending * Provider: Jj Steel, DPM Date: 0 05/29/2024 Generated for Marcos calix/Kleber/Beulah on: 0 11/25/2024 06:37 AM CDT
--- OUTSIDE RECORDS SUMMARY | 2024-09-18 05:20 | XMS_ITS ---
Author Organization [facility] Address [address] [place], [place] [address] Care Team Providers Care Group Leader Semiconductor Processing Name Role Phone MARLA STEEL Unavailable [phone] Forrest Castañeda Unavailable Unavailable Allergies No Known Allergies REASON FOR VISIT *General care Medications Medication SIG (Take, Route, Frequency, Duration) Notes Start Date End Date Status hydroCHLOROthiazide 25 MG 1 tablet in th e morning Orally Once a day Active Montelukast Sodium 10 MG 1 tablet Orally Once a day Active Aspirin 81 81 MG 1 tablet Orally Once a day Active Tamsulosin HCl 0.4 MG 1 capsule Orally O nce a day Active Vital Signs Height 71 in 09/18/2024 Weight 245 lbs 09/18/2024 BMI 34.17 kg/m2 09/18/2024 Height-cm 180.34 cm 09/18/2024 Weight-kg 111.13 kg 09/18/2024 Encounters Encounter Location Date Provider Diagnosis [facility] [place] [address] [place], [place] [id number] 09/18/2024 MARLA STEEL Fungal infection of nail B35.1 ; Pain in right toe(s) M79.674 ; Pain in left toe(s) M79.675 and Unspecified atherosclerosis of [place] arteries of extremities, bilateral legs I70.203 Assessments Encounter Date Diagnosis (ICD Code) Assessment Notes Treatment Notes Treatment Clinical Notes Section Notes 09/18/2024 Fungal infection of nail (ICD-10 - B35.1) Nails 1-5 Bilateral were debrided extensively with nail nippers and emery board, reducing length and girth to pink healthy tissue with any subungual debris and necrotic tissue removed 09/18/2024 Pain in right toe(s) (ICD-10 - M79.674) 09/18/2024 Pain in left toe(s) (ICD-10 - M79.675) 09/18/2024 Unspecified atherosclerosis of [place] arteries of extremities, bilateral legs (ICD-10 - I70.203) Plan Of Treatment Treatment Notes Assessment Notes Fungal infection of nail Nails 1-5 Bilat eral were debrided extensively with nail nippers and emery board, reducing length and girth to pink healthy tissue with any subungual debris and necrotic tissue removed Next Appt Details Provider Name:MARLA GALLARDO, 01/15/2025 09:50:00 AM, [address], [address], [phone], Progress Notes * ADRIANA ZaireDOB:1950 (74 yo M)Acc No.[id number]:09/18/2024 Patient: Zaire RHODES Provider: Jj Steel DPM :1950 A ge:74 Y S ex:Male Date:09/18/2024 Address:[address] [place], [place] [address] Subjective: * Chief Complaints: * 1 . *General care. * HPI: H PI: General care P atient presents to the office for at risk foot care. Patient states that their nails are thickened, elongated and painful. Patient states that it is aggravated by shoe gear. Onset is gradual. Patient denies being diabetic., Patient denies taking prescription blood thinners but does take a daily aspirin., Date last seen by Dr. Castañeda was May 2024., Initials JMR. * ROS: G eneral / Constitutional: Patient [...] disease, cancer. S ister: unknown, cancer. * Medications: T aking Aspirin 81 81 MG Tablet Delayed Release 1 tablet Orally Once a day , Taking hydroCHLOROthiazide 25 MG Tablet 1 tablet in the morning Orally Once a day , Taking Montelukast Sodium 10 MG Tablet 1 tablet Orally Once a day , Taking Tamsulosin HCl 0.4 MG Capsule 1 capsule Orally Once a day , Medication List reviewed and reconciled with the patient * Allergies: N .K.D.A. Objective: * Vitals: S hoe Size: 11.55, Wt: 245 lbs, Wt-k.13 kg, Ht: 71 in, Ht-cm: 180.34 cm, BMI: 34.17 Index, Body Surface Area: 2.36. * Examination: P [...] M79.675 4 . U nspecified atherosclerosis of [place] arteries of extremities, bilateral legs - I70.203 Plan: * Treatment: * Immunizations: Immunization record has been reviewed and updated. * Procedure Codes: 1 1721 DEBRIDE NAIL, 6 OR MORE, Modifiers: Q8 * Billing Information: * Visit Code: * Procedure Codes: 16419 DEBRIDE NAIL, 6 OR MORE. Modifiers: Q8 * Electronic signature of MARLA DARIANA STEEL on 11/25/2024 at 06:37 AM CDT Sign off status: Pending * Provider: Jj Steel DPM Date: 0 09/18/2024 Generated for Marcos calix/Kleber/eTransmitting on: 0 11/25/2024 06:37 AM CDT History and Physical Notes * HPI (History [...] Date last seen by Dr. Castañeda was May 2024., Initials JMR Examination Category Sub-Category Detail Notes Category Not [...]
--- OUTSIDE RECORDS SUMMARY | 2024-11-18 04:30 | XMS_ITS ---
Author Organization [facility] [place] ([address]) Address [address] [place] [address] Care Team Providers Care Fractionation Supervisor Name Role Phone Forrest Castañeda Primary Care Provider UnavailSilva Rai Unavailable [phone] Christiano Meyers [phone] REASON FOR VISIT SCIT (Aeroallergen) Encounters Encounter Location Date Provider Diagnosis [facility] [place] [address] [place] [address] 11/18/2024 Christiano Meyers Plan Of Treatment No Information Progress Notes * Zaire PAZDOB:1950 (74 yo M)Acc No.[id number]:11/18/2024 SCIT-Aeroallergen Patient: Zaire RHODES Provider: Hamilton Meyers MD :1950 A ge:74 Y S ex:Male Date:11/18/2024 Address:[address] [place], [place] [phone] Pcp:Forrest Castañeda Subjective: * Chief Complaints: * 1 . SCIT (Aeroallergen). * Medical History: Objective: * Vitals: Assessment: Plan: * Treatment: * Billing Information: * Visit Code: * Procedure Codes: * Electronic signature of Sandi Meyers MD, FAAAAI on 11/25/2024 at 06:36 AM CDT Sign off status: Pending * Provider: Hamilton Meyers MD Date: 0 11/18/2024 Generated for Printi ng/Faxing/eTransmitting on: 0 11/25/2024 06:36 AM CDT
--- OUTSIDE RECORDS SUMMARY | 2024-11-25 06:36 | XMS_ITS | Encounter Summary ---
Author Organization [facility] Address [address] [place] [address] Care Team Providers Care Batt Packer Name Role Phone Unavailable Primary Care Provider Unavailabl e Encounter Details Date Type Department Care Team (Late st Contact Info) Description 04/23/2024 Lab Requisition [facility] - DermPath Lab [address] [facility], [facility] [place] [address] Yuliana Wall MD [address] [facility] [address] [place] [address] Social History Tobacco Use Types Packs/Day Years Used Date Smoking Tobacco: Never Assessed Sex and Gender Information Value Date Recorded Sex Assigned at Not on file Legal Sex Male 5:42 PM AUTOMOTIVE PRODUCT SPECIALIST Gender Identity Not on file Sexual Orientation Not on file documented as of this encounter Plan of Treatment Not on file documented as of this encounter Procedures Procedure Name Priority Date/Time Associated Diagnosis Comments DERMATOPATHOLOGY Routine 04/23/2024 11:1 3 AM AUTOMOTIVE PRODUCT SPECIALIST documented in this encounter Results * DERMATOPATHOLOGY (04/23/2024 11:13 AM AUTOMOTIVE PRODUCT SPECIALIST) Case Report Dermatopathology Report Case: [id number] Authorizing Provider: Yuliana Wall MD Collected: 04/23/2024 11:13 AM [facility]ing [facility] - Received: 04/25/2024 06:08 AM DermPath Lab Pathologist: Laurel Lizarraga MD Specimens: A) - Skin, left cheek B) - Skin, upper back C) - Skin, left thigh 2:24 PM AUTOMOTIVE PRODUCT SPECIALIST DERMATOPATHOLOGY LABORATORY Final Diagnosis Specimen A. SKIN, left cheek: ACTINIC KERATOSIS (L57.0) Specimen B. SKIN, upper back: LICHEN PLANUS-LIKE KERATOSIS (BENIGN LICHENOID KERATOSIS) (L82.1) Specimen C. SKIN, left thigh: SQUAMOUS CELL CARCINOMA, WELL DIFFERENTIATED (C44.729) 2:24 PM [facility] DERMATOPATHOLOGY LABORATORY at 1424 AUTOMOTIVE PRODUCT SPECIALIST Clinical History A: AK vs SCC B: R/O ISK C: R/O SCC 2:24 PM [facility] DERMATOPATHOLOGY LABORATORY Gross Description Specimen A: [...] measuring 10x9x4 mm. Jar 0. 2:24 PM [facility] DERMATOPATHOLOGY LABORATORY Microscopic Description Specimen A. [...] showing evidence of premature cornification. 2:24 PM [facility] DERMATOPATHOLOGY LABORATORY Disclaimer An external and internal positive and negative controls are appropriate for the histochemical, immunohistochemical and immunofluorescence stain(s) in this case (if any), except where stated explicitly. The performance characteristics of the stain(s) cited in this report were developed and its performance characteristic determined by the Dermatopathology Laboratory at [facility], directed by Dr. Robby Juarez. These tests need not be, and therefore are not, approved by the [place] Food and Drug Administration. The tests are used for clinical purposes. Billing Codes Specimen Charges Stain Charges 30741 16912 28631 1 1 1 2:24 PM [facility] DERMATOPATHOLOGY LABORATORY Embedded Images 2:24 PM [facility] DERMATOPATHOLOGY LABORATORY Pathology/Cytology TISSUE SPECIMEN FROM SKIN / Unknown 04/23/2024 11:13 AM AUTOMOTIVE PRODUCT SPECIALIST 04/25/2024 6:08 AM AUTOMOTIVE PRODUCT SPECIALIST Miscellaneous samples (specimen) TISSUE SPECIMEN FROM SKIN / Unknown 04/23/2024 11:13 AM AUTOMOTIVE PRODUCT SPECIALIST 04/25/2024 6:08 AM AUTOMOTIVE PRODUCT SPECIALIST Miscellaneous samples (specimen) TISSUE SPECIMEN FROM SKIN / Unknown 04/23/2024 11:13 AM AUTOMOTIVE PRODUCT SPECIALIST 04/25/2024 6:08 AM AUTOMOTIVE PRODUCT SPECIALIST us Yuliana Wall MD LAB - PATHOLOGY/CYTOLOGY ORD ERABLES Final Result DERMATOPATHOLOGY LABORATORY [facility] - Department of Dermatology [facility] Specialized Medicine [address] [place] [address], [address] [phone] documented in this encounter Visit Diagnoses Not on filedocumented in this encounter
--- OUTSIDE RECORDS SUMMARY | 2024-11-25 06:36 | XMS_ITS | Clinical Summary ---
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 Gender Identity Not on file Sexual Orientation [...] 2:08 PM CDT Height 180.3 cm (5' 11) 01/01/2023 2:08 PM CDT Body Mass Index 34.64 01/01/2023 2:08 PM CDT Plan of Treatment Health Maintenance Due Date Last Done Comments ZOSTER VACCINE (2 of 2) 11/26/2018 10/01/2018 DTAP/TDAP/TD VACCINES (1 - Tdap) 08/20/2020 08/20/19 21 RSV VACCINE (60+ or ) (1 - 1-dose 75+ series) 06/28/2023 INFLUENZA VACCINE (#1) 2024 3, 12/21/2021, 12/11/2019, Additional history exists COLORECTAL SCREENING Discontinued 10/04/2017, 07/22/19 17 Colorectal Cancer Screening Discontinued PNEUMOCOCCAL VACCINE 50+ YEARS Completed 01/01/2018 , 04/23/2014 FIT-DNA Q 3 years Discontinued FIT/FOBT Q 1 year Discontinued Flex Sig/CT Colonography Q 5 years Discontinued Insurance MEDICARE PART A AND B [employer] [facility] Care Teams Command And Control Relationship Specialty Start Date End Date Justin Huffman MD [address] [place] [phone] PCP - General Internal Medicine 05/15/19
--- OUTSIDE RECORDS SUMMARY | 2024-11-25 06:36 | XMS_ITS | Encounter Summary ---
Author Organization [facility] Address [address] [facility] [place] [address] Care Team Providers Care Lumber Tripper Name Role Phone Unavailable Primary Care Provider Unavailabl e Encounter Details Date Type Department Care Team (Late st Contact Info) Description 07/18/2017 Lab Requisition [facility] DermPath Lab [address] [facility] [place] [address] Adarsh Bryant MD [address] [place] [address] Social History Tobacco Use Types Packs/Day Years Used Date Smoking Tobacco: Never Assessed Sex and Gender Information Value Date Recorded Sex Assigned at Not on file 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 Gender Identity Not on file Sexual Orientation Not on file documented as of this encounter Plan of Treatment Not on file documented as of this encounter Procedures Procedure Name Priority Date/Time Associated Diagnosis Comments DERMATOPATHOLOGY Routine 07/17/2017 12:0 0 AM CDT documented in this encounter Results * DERMATOPATHOLOGY (07/17/2017 12:00 AM CDT) Case Report Dermatopathology Report Case: [id number] Authorizing Provider: Adarsh Bryant MD Collected: 07/17/2017 12:00 AM Pathologist: Nikita Juarez MD Received: 07/18/2017 12:44 PM Specimen: Skin, left base of neck 8 3:46 PM CDT DERMATOPATHOLOGY LABORATORY Final Diagnosis Specimen A. SKIN, left base of neck: DERMAL FIBROSIS (L90.5) (see microscopic description) 8 3:46 PM CDT DERMATOPATHOLOGY LABORATORY at 1546 CDT Clinical History R/O dys nevus. BCC. Check margins. 3:46 PM CDT DERMATOPATHOLOGY LABORATORY Gross Description Specimen A: Received is one formalin filled container labeled with the patient's name and designated left base of neck. The specimen consists of a shave biopsy measuring 4s7x9zi, the margin is inked green. Jar 0. [...] characteristic determined by the Dermatopathology Laboratory at [facility]. These tests need not be, and therefore are not, approved by the [place] Food and Drug Administration. The tests are used for clinical purposes. Billing Codes Specimen Charges Stain Charges 48501 1 3:46 PM CDT DERMATOPATHOLOGY LABORATORY Embedded Images 3:46 PM CDT DERMATOPATHOLOGY LABORATORY Pathology/Cytolog y TISSUE SPECIMEN FROM SKIN / Unknown 07/17/2017 07/18/2017 12:44 PM CDT Adasrh Bryant MD LAB - PATHOLOGY/CYTOLOGY ORD ERABLES Final Result DERMATOPATHOLOGY LABORATORY [facility] - Department of Dermatology [address] [facility] [place] [address], [facility] [phone] documented in this encounter Visit Diagnoses Not on filedocumented in this encounter
--- OUTSIDE RECORDS SUMMARY | 2024-11-25 06:36 | XMS_ITS | Clinical Summary ---
Author Organization [facility] Address [address] [place] [address] Care Team Providers Care Crab Picker Name Role Phone Unavailable Primary Care Provider Unavailabl e Source Comments [facility],non-owned Affiliates and Associated Physician Practices is amultiple site organization consisting of ambulatory clinics and hospital sitesin [place], [place], [place] and [place]. This disclosure is being madepursuant to the Care Everywhere program and may not contain all information available regarding this patient. Last updated 17.[facility] [employer] Social History Tobacco Use Types Packs/Day Years Used Date Smoking Tobacco: Never Assessed Sex and Gender Information Value Date Recorded Sex Assigned at Not on file Legal Sex Male 5:42 PM TRIAGE REGISTERED NURSE Gender Identity Not on file Sexual Orientation Not on file Plan of Treatment Health Maintenance Due Date Last Done Comments MEDICARE AWV 12 MONTHS 1950 HEPATITIS C SCREENING 06/23/1966 DTAP/TDAP/TD VACCINES (1 - Tdap) 06/28/1967 PNEUMOCOCCAL VACCINE 50+ (1 of 1 - PCV) 1998 ZOSTER VACCINE (1 of 2) 1998 Respiratory Syncytial Virus (RSV) Vaccine Pt: or over 60 yrs (1 - 1-dose 75+ series) 06/28/2023 DEPRESSION SCREENING 03/19/2024 COVID-19 VACCINE ( - 2023-2 5 season) 2024 INFLUENZA VACCINE (#1) 2024 HEPATITIS B VACCINE Aged Out No longe r eligible based on patient's age to complete this topic HIB VACCINE Aged Out No longer eligi ble based on patient's age to complete this topic HPV VACCINE Aged Out No longer eligi ble based on patient's age to complete this topic MENINGOCOCCAL (Group B) VACC INE SHARED DECISION-MAKING Aged Out No longer eligibl e based on patient's age to complete this topic MENINGOCOCCAL GROUPS A/C/Y/W VACCINE Aged Out No longer eligible b ased on patient's age to complete this topic Insurance MEDICARE MEDICARE [facility] [employer] MEDICARE
--- OUTSIDE RECORDS SUMMARY | 2024-11-25 06:37 | XMS_ITS | Encounter Summary ---
Author Organization [facility] Address [address] [facility] [place] [address] Care Team Providers Care Evaluation Specialist Name Role Phone Unavailable Primary Care Provider Unavailabl e Encounter Details Date Type Department Care Team (Late st Contact Info) Description 01/27/2021 Lab Requisition [facility] DermPath Lab [address] [place] [phone] Adarsh Bryant MD [address] [place] [address] Social History Tobacco Use Types Packs/Day Years Used Date Smoking Tobacco: Never Assessed Sex and Gender Information Value Date Recorded Sex Assigned at Not on file Legal 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 Male 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 MANAGER WASTEWATER Gender Identity Not on file Sexual Orientation Not on file documented as of this encounter Plan of Treatment Not on file documented as of this encounter Procedures Procedure Name Priority Date/Time Associated Diagnosis Comments DERMATOPATHOLOGY Routine 01/26/2021 12:0 0 AM MANAGER WASTEWATER documented in this encounter Results * DERMATOPATHOLOGY (01/26/2021 12:00 AM MANAGER WASTEWATER) Case Report Dermatopathology Report Case: [id number] Authorizing Provider: Adarsh Bryant MD Collected: 01/26/2021 12:00 AM Ordering Location: [facility] DermPath Lab Received: 01/27/2021 12:48 PM Pathologist: Nikita Juarez MD Specimen: Skin, right superior buttock 1 2:24 PM MANAGER WASTEWATER DERMATOPATHOLOGY LABORATORY Final Diagnosis Specimen A. SKIN, right superior buttock: ACROCHORDON (SOFT FIBROMA, SKIN TAG) (L91.8) 1 2:24 PM MANAGER WASTEWATER DERMATOPATHOLOGY LABORATORY at 1424 MANAGER WASTEWATER Clinical History R/O dys nevus. 2:24 PM MANAGER WASTEWATER DERMATOPATHOLOGY LABORATORY Gross Description Specimen A: Received is one formalin filled container labeled with the patient's name and designated right superior buttock. The specimen consists of a shave biopsy measuring [id number], bisected. Jar 0. 2:24 PM MANAGER WASTEWATER DERMATOPATHOLOGY LABORATORY Microscopic Description Specimen A. SKIN, right superior buttock: There is a gently folded epidermis surrounding a connective tissue core in which fat and collagen are intermingled. 2:24 PM MANAGER WASTEWATER DERMATOPATHOLOGY LABORATORY Disclaimer An external and internal positive and negative controls are appropriate for the histochemical, immunohistochemical and immunofluorescence stain(s) in this case (if any), except where stated explicitly. The performance characteristics of the stain(s) cited in this report were developed and its performance characteristic determined by the Dermatopathology Laboratory at [facility], directed by Dr. Robby Juarez. These tests need not be, and therefore are not, approved by the [place] Food and Drug Administration. The tests are used for clinical purposes. Billing Codes Specimen Charges Stain Charges 14824 1 2:24 PM MANAGER WASTEWATER DERMATOPATHOLOGY LABORATORY Embedded Images 2:24 PM MANAGER WASTEWATER DERMATOPATHOLOGY LABORATORY Pathology/Cytolog y TISSUE SPECIMEN FROM SKIN / Unknown 01/26/2021 01/27/2021 12:48 PM MANAGER WASTEWATER Adarsh Bryant MD LAB - PATHOLOGY/CYTOLOGY ORD ERABLES Final Result DERMATOPATHOLOGY LABORATORY [facility] - Department of Dermatology [address] [place] [address], [place] [phone] documented in this encounter Visit Diagnoses Not on filedocumented in this encounter
--- OUTSIDE RECORDS SUMMARY | 2024-11-25 06:37 | XMS_ITS | Clinical Summary ---
Author Organization [facility] Address [address] [place] [address] Care Team Providers Care Systems Architecture Analyst Name Role Phone Unavailable Primary Care Provider Unavailabl e Social History Tobacco Use Types Packs/Day Years Used Date Smoking Tobacco: Never Assessed Sex and Gender Information Value Date Recorded Sex Assigned at Not on file Legal Sex Male 5:38 PM CDT Gender Identity Not on file Sexual Orientation Not on file Plan of Treatment Health Maintenance Due Date Last Done Comments Hepatitis C 1966 DTaP, Tdap and Td Vaccines ( 1 - Tdap) 06/28/1967 Pneumococcal Vaccine: 50+ Ye ars (1 of 1 - PCV) 1998 Zoster Vaccines (1 of 2) 1998 RSV Immunization or 60+ Years (1 - 1-dose 75+ series) 06/28/2023 COVID-19 Vaccine (2023-2 5 season) 2024 Meningococcal B Vaccine Aged Out No l onger eligible based on patient's age to complete this topic Meningococcal Vaccine Aged Out No kishan anita eligible based on patient's age to complete this topic RSV Immunizations Under 20 Months Aged Out No longer eligible based on patient's age to complete this topic
--- OUTSIDE RECORDS SUMMARY | 2024-11-25 06:37 | XMS_ITS | Clinical Summary ---
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 Gender Identity Male 06/16/2019 12:52 PM CDT Sexual Orientation Straight 06/16/2019 12 :52 PM CDT Obstetrics History Last Filed Vital Signs Vital Sign Reading Time Taken Comments Blood Pressure - - Pulse - - Temperature - - Respiratory Rate - - Oxygen Saturation - - Inhaled Oxygen Concentration - - Weight 106.6 kg (235 lb) 10/10/2017 1:41 PM CDT Height 180.3 cm (5' 11) 10/10/2017 1:41 PM CDT Body Mass Index 32.78 10/10/2017 1:41 PM CDT Plan of Treatment Not on file Insurance MEDICARE [facility] MEDICARE SUPPLEMENT INSURANCE MEDICARE [facility] MEDICARE SUPPLEMENT INSURANCE Care Teams Welder Assistant Relationship Specialty Start Date End Date Justin Huffman MD PCP - General Internal Medicine 08/22/17 No, Physician 08/22/17
--- OUTSIDE RECORDS SUMMARY | 2024-11-25 06:37 | XMS_ITS | Encounter Summary ---
Author Organization [facility] Address [address] [facility] [place] [address] Care Team Providers Care Pbx Repairer Name Role Phone Unavailable Primary Care Provider Unavailabl e Encounter Details Date Type Department Care Team (Late st Contact Info) Description 05/14/2024 Lab Requisition [facility] - DermPath Lab [address] [facility], [facility] [place] [address] Yuliana Wall MD [address] [facility] [address] [place] [address] Social History Tobacco Use Types Packs/Day Years Used Date Smoking Tobacco: Never Assessed Sex and Gender Information Value Date Recorded Sex Assigned at Not on file Legal Sex Male 5:42 PM NURSING INFORMATICS CLINICAL ANALYST Gender Identity Not on file Sexual Orientation Not on file documented as of this encounter Plan of Treatment Not on file documented as of this encounter Procedures Procedure Name Priority Date/Time Associated Diagnosis Comments DERMATOPATHOLOGY Routine 05/14/2024 3:42 PM NURSING INFORMATICS CLINICAL ANALYST documented in this encounter Results * DERMATOPATHOLOGY (05/14/2024 3:42 PM NURSING INFORMATICS CLINICAL ANALYST) Case Report Dermatopathology Report Case: [id number] Authorizing Provider: Yuliana Wall MD Collected: 05/14/2024 03:42 PM Ordering Location: [facility] Physician [facility] - Received: 05/16/2024 07:03 AM DermPath Lab Pathologist: Laurel Lizarraga MD Specimen: Skin, left thigh 1:44 PM NURSING INFORMATICS CLINICAL ANALYST DERMATOPATHOLOGY LABORATORY Final Diagnosis Specimen A. SKIN, left thigh: DERMAL SCAR RESIDUAL SQUAMOUS CELL CARCINOMA NOT IDENTIFIED (L90.5) 1:44 PM NURSING INFORMATICS CLINICAL ANALYST DERMATOPATHOLOGY LABORATORY at 1344 NURSING INFORMATICS CLINICAL ANALYST Clinical History Bx proven, R/O SCC 1:44 PM [facility] DERMATOPATHOLOGY LABORATORY Gross Description Specimen A: Received is one formalin filled container labeled with the patient's name and designated left thigh.The specimen consists of an ellipse measuring 21l31v0 mm and is oriented with the notch at the 12 o'clock position labeled on the requisition as notch. The 12 to 6 o'clock margin is inked green. The 6 o'clock to 12 o'clock margin is inked red. The 12 o'clock tip is submitted in cassette 1. The 6 o'clock tip is submitted in cassette 2. The remainder of the ellipse is serially sectioned and submitted in cassettes 3-6. Jar 0. 1:44 PM [facility] DERMATOPATHOLOGY LABORATORY Microscopic Description Specimen A. SKIN, left thigh: There are fibroblasts and collagen bundles oriented parallel to the skin surface. There are elongated blood vessels, some of which are oriented perpendicular to the skin surface. No residual squamous cell carcinoma is identified. 1:44 PM [facility] DERMATOPATHOLOGY LABORATORY Disclaimer An external and internal positive and negative controls are appropriate for the histochemical, immunohistochemical and immunofluorescence stain(s) in this case (if any), except where stated explicitly. The performance characteristics of the stain(s) cited in this report were developed and its performance characteristic determined by the Dermatopathology Laboratory at [facility], directed by Dr. Robby Juarez. These tests need not be, and therefore are not, approved by the [place] Food and Drug Administration. The tests are used for clinical purposes. Billing Codes Specimen Charges Stain Charges 10108 1 1:44 PM [facility] DERMATOPATHOLOGY LABORATORY Embedded Images 1:44 PM [facility] DERMATOPATHOLOGY LABORATORY Pathology/Cytolo gy TISSUE SPECIMEN FROM SKIN / Unknown 05/14/2024 3:42 PM NURSING INFORMATICS CLINICAL ANALYST 05/16/2024 7:03 AM [facility] us Yuliana Wall MD LAB - PATHOLOGY/CYTOLOGY ORD ERABLES Final Result DERMATOPATHOLOGY LABORATORY [facility] - Department of Dermatology [address], [address] [phone] documented in this encounter Visit Diagnoses Not on filedocumented in this encounter
--- OUTSIDE RECORDS SUMMARY | 2024-11-25 06:37 | XMS_ITS | Patient Health Record ---
Author Organization [facility] ([address]) Address [address] [place] [address] Care Team Providers Care Safety Manager Name Role Phone Forrest Castañeda Primary Care Provider Silva Thomas Unavailable [phone] Christiano Meyers Unavailable [phone] Allergies No Known Allergies Reason For Referral No Information Medications Medication SIG (Take, Route, Frequency, Duration) Notes Start Date End Date Status EPIPEN 2-FRANCISCO 0.3 mg as directed intramuscularly once; Duration: 1 days 04/02/2023 Active AZELASTINE NASAL 137 mcg/inh 2 spray(s) intranasally 2 times a day; Duration: 30 day(s) Active Azelastine HCl 137 MCG/SPRAY 2 spray(s) intranasally 2 times a day; Duration: 30 day(s) 06/06/2023 Active SIT (TRADITIONAL) variable per schedule SC per schedule; Duration: to be determined Active Testosterone ENANTHATE 50 MG/0.5 ML DIRECTED SUBCUTANEOUSLY ONCE A WEEK *Please review and pick correct strength-formula tion from Scre[employer] Daily Deals options. If intended option is not shown, discontinue and re-order from Quick Search* Active TESTOSTERONE enanthate 50 mg/0.5 mL as directed subcutaneously once a week Active Tamsulosin HCl 0.4 MG 1 cap(s) orally on ce a day Active TAMSULOSIN 0.4 mg 1 cap(s) orally once a day Active hydroCHLOROthiazide 25 MG 1 tab(s) orally once a day Active HYDROCHLOROTHIAZIDE 25 mg 1 tab(s) orally once a day Active Song Allergy *Please review and pick correct strength-formula tion from [employer] Daily Deals options. If intended option is not shown, discontinue and re-order from Quick Search* Active SONG Active Aspirin *Please review and pick correct strength-formula tion from Snapsheetan options. If intended option is not shown, discontinue and re-order from Quick Search* Active ASPIRIN Active Montelukast Sodium 10 MG 1 tab(s) orally once a day; Duration: 30 day(s) Active MONTELUKAST 10 mg 1 tab(s) orally once a day; Duration: 30 day(s) Active EpiPen 2-Francisco 0.3 MG/0.3ML as directed intramuscularly once; Duration: 1 days 04/02/2023 Active AZELASTINE NASAL 137 mcg/inh 2 spray(s) intranasally 2 times a day; Duration: 30 day(s) 06/06/2023 Active busPIRone HCl Active SIT (TRADITIONAL) variable per schedule SC per schedule; Duration: to be determined Active Immunizations Vaccine Route Administration Date Status Comme nts NOC Influenza-Fluzone Unknown 04/16/2019 Administered COVID-19 (Moderna) Unknown 05/14/2020 Administered COVID-19 (Moderna) Unknown 06/11/2020 Administered COVID-19 (Moderna) Unknown 03/10/2021 Administered FLUZONE High-Dose Quadrivalent Unknown 11/17/2020 Admin istered Social History Tobacco Use: Social History Observation Description Date Details (start date - stop date) Never Smoker NA - NA Smoking Smart Form: Question Answer Notes Are you a: never smoker Problems Problem Type SNOMED Code ICD Code Onset Dates Problem Status W/U Status Risk Notes Problem Chronic allergic conjunctivitis (12610963) Other chronic allergic conjunctivitis (H10.45) Active confirmed Problem Essential hypertension (92346940) Essential (primary) hypertension (I10) Active confirmed Problem Allergic rhinitis caused by pollen (disorder) (57358358) Allergic rhinitis due to pollen (J30.1) Active confirmed Problem Allergic rhinitis caused by animal hair and dander (551910803217826) Allergic rhinitis due to animal (cat) (dog) hair and dander (J30.81) Active confirmed Problem Allergic rhinitis (24999485) Other allergic rhinitis (J30.89) Active confirmed Problem Chronic sinusitis (31425593) Chronic sinusitis, unspecified (J32.9) Active confirmed Problem Uncomplicated moderate persistent asthma (579259619) Moderate persistent asthma, uncomplicated (J45.40) Active confirmed Problem Allergic rhinitis caused by pollen (disorder) (72374505) Allergic rhinitis due to pollen (J30.1) Active confirmed Problem Allergic rhinitis caused by animal hair and dander (350145785850252) Allergic rhinitis due to animal (cat) (dog) hair and dander (J30.81) Active confirmed Problem Allergic rhinitis (29646847) Other allergic rhinitis (J30.89) Active confirmed Problem Chronic allergic conjunctivitis (34392006) Other chronic allergic conjunctivitis (H10.45) Active confirmed Vital Signs Oximetry 96 % 05/14/2024 Blood pressure diastolic 81 mm Hg 05/14/2024 Height 71 in 05/14/2024 Blood pressure systolic 170 mm Hg 05/14/2024 Weight 257.4 lbs 05/14/2024 BMI 35.9 kg/m2 05/14/2024 Encounters Encounter Location Date Provider Diagnosis [facility] [address] [place] [address] [place] [phone] 12/05/2023 Silva Lafleur Allergic rhinitis du e to pollen J30.1 ; Allergic rhinitis due to animal (cat) (dog) hair and dander J30.81 ; Other allergic rhinitis J30.89 and Other chronic allergic conjunctivitis H10.45 [facility] [address] [place] [address] [place] [address] [address] 01/02/2024 Silva Lafleur Allergic rhinitis du e to pollen J30.1 ; Allergic rhinitis due to animal (cat) (dog) hair and dander J30.81 ; Other allergic rhinitis J30.89 and Other chronic allergic conjunctivitis H10.45 [facility] [address] [place] [address] [place] [address] [phone] 02/05/2024 Silva Lafleur Allergic rhinitis du e to pollen J30.1 ; Allergic rhinitis due to animal (cat) (dog) hair and dander J30.81 ; Other allergic rhinitis J30.89 and Other chronic allergic conjunctivitis H10.[address] [place] [address] [address] 03/05/2024 Silva Lafleru Allergic rhinitis du e to pollen J30.1 ; Allergic rhinitis due to animal (cat) (dog) hair and dander J30.81 ; Other allergic rhinitis J30.89 and Other chronic allergic conjunctivitis H10.45 [facility] [address] [place] [phone] 04/09/2024 Silva Lafleur Allergic rhinitis du e to pollen J30.1 ; Allergic rhinitis due to animal (cat) (dog) hair and dander J30.81 ; Other allergic rhinitis J30.89 and Other chronic allergic conjunctivitis H10.45 [facility] [address] [place] [phone] 05/07/2024 Silva Lafleur Allergic rhinitis du e to pollen J30.1 ; Allergic rhinitis due to animal (cat) (dog) hair and dander J30.81 ; Other allergic rhinitis J30.89 and Other chronic allergic conjunctivitis H10.45 [facility] [address] [place] [phone] 05/13/2024 Silva Lafleur Allergic rhinitis du e to pollen J30.1 ; Allergic rhinitis due to animal (cat) (dog) hair and dander J30.81 ; Other allergic rhinitis J30.89 and Other chronic allergic conjunctivitis H10.45 [facility] [address] [place] [phone] 05/14/2024 Silva Lafleur Chronic sinusitis, unspecified J32.9 ; Allergic rhinitis due to pollen J30.1 ; Allergic rhinitis due to animal (cat) (dog) hair and dander J30.81 ; Other allergic rhinitis J30.89 ; Other chronic allergic conjunctivitis H10.45 and Essential (primary) hypertension I10 [facility] [address] [place] [phone] 05/21/2024 Silva Lafleur Allergic rhinitis du e to pollen J30.1 ; Allergic rhinitis due to animal (cat) (dog) hair and dander J30.81 ; Other allergic rhinitis J30.89 and Other chronic allergic conjunctivitis H10.45 [facility] [address] [place] [phone] 05/28/2024 Silva Lafleur Allergic rhinitis du e to pollen J30.1 ; Allergic rhinitis due to animal (cat) (dog) hair and dander J30.81 ; Other allergic rhinitis J30.89 and Other chronic allergic conjunctivitis H10.45 [facility] [address] [place], [place] [address] [address] [place] [phone] 06/25/2024 Silva Lafleur Allergic rhinitis du e to pollen J30.1 ; Allergic rhinitis due to animal (cat) (dog) hair and dander J30.81 ; Other allergic rhinitis J30.89 and Other chronic allergic conjunctivitis H10.45 [facility] [address] [place], [place] [address] [address] [place] [phone] 08/13/2024 Silva Lafleur Allergic rhinitis du e to pollen J30.1 ; Allergic rhinitis due to animal (cat) (dog) hair and dander J30.81 ; Other allergic rhinitis J30.89 and Other chronic allergic conjunctivitis H10.45 [facility] [address] [place], [place] [address] [address] [phone] 09/10/2024 Silva Lafleur Allergic rhinitis du e to pollen J30.1 ; Allergic rhinitis due to animal (cat) (dog) hair and dander J30.81 ; Other allergic rhinitis J30.89 and Other chronic allergic conjunctivitis H10.45 [facility] [address] [place], [place] [address] [address] [place] [phone] 09/18/2024 Silva Lafleur Allergic rhinitis du e to pollen J30.1 ; Allergic rhinitis due to animal (cat) (dog) hair and dander J30.81 ; Other allergic rhinitis J30.89 and Other chronic allergic conjunctivitis H10.45 [facility] [address] [place] [phone] 10/09/2024 Silva Lafleur Allergic rhinitis du e to pollen J30.1 ; Allergic rhinitis due to animal (cat) (dog) hair and dander J30.81 ; Other allergic rhinitis J30.89 and Other chronic allergic conjunctivitis H10.45 [facility] [address] [place], [place] [address] [address] [place] [phone] 11/20/2024 Silva Lafleur Allergic rhinitis du e to pollen J30.1 ; Allergic rhinitis due to animal (cat) (dog) hair and dander J30.81 ; Other allergic rhinitis J30.89 and Other chronic allergic conjunctivitis H10.45 Assessments Encounter Date Diagnosis (ICD Code) Assessment Notes Treatment Notes Treatment Clinical Notes Section Notes 05/28/2024 Allergic rhinitis due to pollen (ICD-10 - J30.1) 11/20/2024 Allergic rhinitis due to pollen (ICD-10 - J30.1) 10/09/2024 Allergic rhinitis due to pollen (ICD-10 - J30.1) 09/18/2024 Allergic rhinitis due to pollen (ICD-10 - J30.1) 09/10/2024 Allergic rhinitis due to pollen (ICD-10 - J30.1) 08/13/2024 Allergic rhinitis due to pollen (ICD-10 - J30.1) 06/25/2024 Allergic rhinitis due to pollen (ICD-10 - J30.1) 05/21/2024 Allergic rhinitis due to pollen (ICD-10 - J30.1) 05/14/2024 Allergic rhinitis due to pollen (ICD-10 - J30.1) Zaire clearly suffers from atopic disease based upon history and our skin testing. Accordingly, we have introduced a new, aggressive medication regimen, discussed nasal washes and allergy-specific avoidance measures. He is tolerating SCIT without large local or systemic symptoms. He was instructed to carry his epinephrine autoinjector for 2 hours after leaving the office. We discussed restarting Astelin as a trial with 2 sprays BID 05/14/2024 Chronic sinusitis, unspecified (ICD-10 - J32.9) Chronic sinusitis s/p balloon sinuplasty x2. No interval sinusitis. We discussed continuing SCIT to complete 5 years of therapy. Also consider GERD as a cause for throat clearing. Recommend trial of omeprazole or waiting for ENT evaluation 05/13/2024 Allergic rhinitis due to pollen (ICD-10 - J30.1) 05/07/2024 Allergic rhinitis due to pollen (ICD-10 - J30.1) 04/09/2024 Allergic rhinitis due to pollen (ICD-10 - J30.1) 03/05/2024 Allergic rhinitis due to pollen (ICD-10 - J30.1) 02/05/2024 Allergic rhinitis due to pollen (ICD-10 - J30.1) 01/02/2024 Allergic rhinitis due to pollen (ICD-10 - J30.1) 12/05/2023 Allergic rhinitis due to pollen (ICD-10 - J30.1) 12/05/2023 Allergic rhinitis due to animal (cat) (dog) hair and dander (ICD-10 - J30.81) 01/02/2024 Allergic rhinitis due to animal (cat) (dog) hair and dander (ICD-10 - J30.81) 02/05/2024 Allergic rhinitis due to animal (cat) (dog) hair and dander (ICD-10 - J30.81) 03/05/2024 Allergic rhinitis due to animal (cat) (dog) hair and dander (ICD-10 - J30.81) 04/09/2024 Allergic rhinitis due to animal (cat) (dog) hair and dander (ICD-10 - J30.81) 05/07/2024 Allergic rhinitis due to animal (cat) (dog) hair and dander (ICD-10 - J30.81) 05/13/2024 Allergic rhinitis due to animal (cat) (dog) hair and dander (ICD-10 - J30.81) 05/14/2024 Allergic rhinitis due to animal (cat) (dog) hair and dander (ICD-10 - J30.81) 05/21/2024 Allergic rhinitis due to animal (cat) (dog) hair and dander (ICD-10 - J30.81) 06/25/2024 Allergic rhinitis due to animal (cat) (dog) hair and dander (ICD-10 - J30.81) 08/13/2024 Allergic rhinitis due to animal (cat) (dog) hair and dander (ICD-10 - J30.81) 09/10/2024 Allergic rhinitis due to animal (cat) (dog) hair and dander (ICD-10 - J30.81) 09/18/2024 Allergic rhinitis due to animal (cat) (dog) hair and dander (ICD-10 - J30.81) 10/09/2024 Allergic rhinitis due to animal (cat) (dog) hair and dander (ICD-10 - J30.81) 11/20/2024 Allergic rhinitis due to animal (cat) (dog) hair and dander (ICD-10 - J30.81) 05/28/2024 Allergic rhinitis due to animal (cat) (dog) hair and dander (ICD-10 - J30.81) 05/28/2024 Other allergic rhinitis (ICD-10 - J30.89) 11/20/2024 Other allergic rhinitis (ICD-10 - J30.89) 10/09/2024 Other allergic rhinitis (ICD-10 - J30.89) 09/18/2024 Other allergic rhinitis (ICD-10 - J30.89) 09/10/2024 Other allergic rhinitis (ICD-10 - J30.89) 08/13/2024 Other allergic rhinitis (ICD-10 - J30.89) 06/25/2024 Other allergic rhinitis (ICD-10 - J30.89) 05/21/2024 Other allergic rhinitis (ICD-10 - J30.89) 05/14/2024 Other allergic rhinitis (ICD-10 - J30.89) 05/13/2024 Other allergic rhinitis (ICD-10 - J30.89) 05/07/2024 Other allergic rhinitis (ICD-10 - J30.89) 04/09/2024 Other allergic rhinitis (ICD-10 - J30.89) 03/05/2024 Other allergic rhinitis (ICD-10 - J30.89) 02/05/2024 Other allergic rhinitis (ICD-10 - J30.89) 01/02/2024 Other allergic rhinitis (ICD-10 - J30.89) 12/05/2023 Other allergic rhinitis (ICD-10 - J30.89) 12/05/2023 Other chronic allergic conjunctivitis (ICD-10 - H10.45) 01/02/2024 Other chronic allergic conjunctivitis (ICD-10 - H10.45) 02/05/2024 Other chronic allergic conjunctivitis (ICD-10 - H10.45) 03/05/2024 Other chronic allergic conjunctivitis (ICD-10 - H10.45) 04/09/2024 Other chronic allergic conjunctivitis (ICD-10 - H10.45) 05/07/2024 Other chronic allergic conjunctivitis (ICD-10 - H10.45) 05/13/2024 Other chronic allergic conjunctivitis (ICD-10 - H10.45) 05/14/2024 Other chronic allergic conjunctivitis (ICD-10 - H10.45) Given ocular signs and symptoms I encouraged allergy avoidance measures and meds as above. If symptoms persist, consider adding additional medications including intraocular antihistamine/ma st cell stabilizer, PRN 05/21/2024 Other chronic allergic conjunctivitis (ICD-10 - H10.45) 06/25/2024 Other chronic allergic conjunctivitis (ICD-10 - H10.45) 08/13/2024 Other chronic allergic conjunctivitis (ICD-10 - H10.45) 09/10/2024 Other chronic allergic conjunctivitis (ICD-10 - H10.45) 09/18/2024 Other chronic allergic conjunctivitis (ICD-10 - H10.45) 10/09/2024 Other chronic allergic conjunctivitis (ICD-10 - H10.45) 11/20/2024 Other chronic allergic conjunctivitis (ICD-10 - H10.45) 05/28/2024 Other chronic allergic conjunctivitis (ICD-10 - H10.45) 05/14/2024 Essential (primary) hypertension (ICD-10 - I10) BP elevated today but says has been getting normal readings at home. No signs of hypertensive urgency. F/u with PCP 05/14/2024 Other Plan Of Treatment No Information Insurance Providers Payer Name Payer Address Payer Phone Subscriber Number Group Number Insured Name Patient Relationship to Insured Coverage Start Date Coverage End Date [employer] (Medicare) Attention Claims [address] [place] [address] [id number] Zaire Arvizu Self - patient is the insured [employer] [address] [address] [place] [address] [id number] Zaire Arvizu Self - patient is the insured Medical (General) History Medical History History ICD Code Other seasonal allergic rhinitis J30.2 Allergic rhinitis due to pollen J30.1 Surgical History Surgery Date(Month/Year) tonsillectomy balloon sinuplasty 12/26/2018 broken rt leg septoplasty
--- OUTSIDE RECORDS SUMMARY | 2024-11-25 06:37 | XMS_ITS | Encounter Summary ---
Author Organization [facility] Address [address] [facility] [place] [address] Care Team Providers Care Foiling Machine Operator Name Role Phone Unavailable Primary Care Provider Unavailabl e Encounter Details Date Type Department Care Team (Late st Contact Info) Description 05/08/[address] 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 DermPath Lab Received: 05/08/2023 12:52 PM Pathologist: Laurel Lizarraga MD Specimens: A) - Skin, left mid paraspinal back B) - Skin, left lower lat back 3:01 PM GAS SUBSTATION OPERATOR DERMATOPATHOLOGY LABORATORY Final Diagnosis Specimen A. 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 SKIN, left lower lat back: LICHEN PLANUS-LIKE KERATOSIS (BENIGN LICHENOID KERATOSIS) (L82.1) 4 3:01 PM [facility] DERMATOPATHOLOGY LABORATORY at 1500 GAS SUBSTATION OPERATOR Clinical History A-B: R/O SCC, Barragan's 4 3:01 PM [facility] DERMATOPATHOLOGY LABORATORY Gross Description Specimen A: Received is one formalin filled container labeled with the patient's name and designated left mid paraspinal back. The specimen consists of a shave biopsy measuring 88m14d4 mm. Jar 0. Specimen B: Received is one formalin filled container labeled with the patient's name and designated left lower lat back. The specimen consists of a shave biopsy measuring 68q23v6 mm. Jar 0. 4 3:01 PM [facility] DERMATOPATHOLOGY LABORATORY [...] and scattered necrotic keratinocytes. 4 3:01 PM [facility] DERMATOPATHOLOGY LABORATORY Disclaimer An external and internal positive and negative controls are appropriate for the histochemical, immunohistochemical and immunofluorescence stain(s) in this case (if any), except where stated explicitly. The performance characteristics of the stain(s) cited in this report were developed and its performance characteristic determined by the Dermatopathology Laboratory at [facility], directed by Dr. Robby Juarez. These tests need not be, and therefore are not, approved by the [place] Food and Drug Administration. The tests are used for clinical purposes. Billing Codes Specimen Charges Stain Charges 92862 82243 1 1 4 3:01 PM [facility] DERMATOPATHOLOGY LABORATORY Embedded Images 4 3:01 PM [facility] DERMATOPATHOLOGY LABORATORY Pathology/Cytology TISSUE SPECIMEN FROM SKIN / Unknown 05/07/2023 3:33 AM GAS SUBSTATION OPERATOR 05/08/2023 12:52 PM [facility] Miscellaneous samples (specimen) TISSUE SPECIMEN FROM SKIN / Unknown 05/07/2023 3:33 AM GAS SUBSTATION OPERATOR 05/08/2023 12:52 PM GAS SUBSTATION OPERATOR us Adarsh Bryant MD LAB - PATHOLOGY/CYTOLOGY ORD ERABLES Final Result DERMATOPATHOLOGY LABORATORY [facility] - Department of Dermatology [facility] [address] [place] [address], [address] [place] [address], [facility] [phone] documented in this encounter Visit Diagnoses Not on filedocumented in this encounter
--- OUTSIDE RECORDS SUMMARY | 2024-11-25 06:37 | XMS_ITS | Patient Health Record ---
Author Organization [facility] Address [address] [place], [place] [id number] Care Team Providers Care Console Attendant Name Role Phone MARLA WILLIAM Unavailable [phone] CastañedaForrest Unavailable Unavailable Allergies No Known Allergies Reason [...] 1 tablet Orally Once a day Active Immunizations Vaccine Route Administration Date Status Comme nts Influenza (split), 3 yrs and above Unknown 12/27/2013 A dministered Influenza, high dose seasonal Unknown 12/31/2015 Admini stered Influenza, high dose seasonal Unknown 12/20/2016 Admini stered Influenza, high dose seasonal Unknown 12/17/2017 Admini stered Influenza, high dose seasonal Unknown 12/12/2018 Admini stered Influenza, high dose seasonal Unknown 04/16/2019 Admini stered Influenza, high dose seasonal Unknown 12/11/2019 Admini stered Influenza, high dose seasonal Unknown 12/16/2022 Admini stered Influenza, high dose seasonal Unknown 01/02/2024 Admini stered Influenza, high-dose seasona l, quadrivalent, preservative free >65 yrs Unknown 11/17/2020 Administered Influenza, high-dose seasona l, quadrivalent, preservative free >65 yrs Unknown 12/21/2021 Administered Influenza, high-dose seasona l, quadrivalent, preservative free >65 yrs Unknown 12/11/2022 Administered Influenza, unspecified formulation Unknown 12/20/2014 A dministered Moderna Covid-19 Vaccine 1st dose Unknown 05/14/2020 Ad ministered Moderna Covid-19 Vaccine 1st dose Unknown 05/14/2020 Ad ministered Moderna Covid-19 Vaccine 1st dose Unknown 06/11/2020 Ad ministered Moderna Covid-19 Vaccine 1st dose Unknown 06/11/2020 Ad ministered Moderna Covid-19 Vaccine 1st dose Unknown 03/10/2021 Ad ministered Moderna Covid-19 Vaccine 1st dose Unknown 03/10/2021 Ad ministered Moderna Covid-19 Vaccine 1st dose Unknown 12/21/2021 Ad ministered Pneumococcal conjugate PCV 13 Unknown 04/23/2014 Admini stered Pneumococcal polysaccharide PPV23 Unknown 01/01/2018 Ad ministered Td (adult) preservative free Unknown 08/19/2020 Adminis tered Social History Tobacco Use: Social History Observation Description Date Details (start date - stop date) Former Smoker NA - NA Tobacco Use/Smoking Question Answer Notes Tobacco use: former smoker Vital Signs Height-cm 180.34 cm 11/20/2024 Weight-kg 111.13 kg 11/20/2024 Height 71 in 11/20/2024 Weight 245 lbs 11/20/2024 BMI 34.17 kg/m2 11/20/2024 Encounters Encounter Location Date Provider Diagnosis [facility] [address] [place] [address] [id number] 09/18/2024 MARLA WILLIAM Fungal infection of nail B35.1 ; Pain in right toe(s) M79.674 ; Pain in left toe(s) M79.675 and Unspecified atherosclerosis of nikolai arteries of extremities, bilateral legs I70.203 [facility] [address] [place] [address] [id number] 11/20/2024 MARLA WILLIAM Fungal infection of nail B35.1 ; Pain in right toe(s) M79.674 ; Pain in left toe(s) M79.675 and Unspecified atherosclerosis of nikolai arteries of extremities, bilateral legs I70.203 [facility] [address] [place] [address] [id number] 12/13/2023 MARLA NATALIIA Fungal infection of nail B35.1 ; Pain in right toe(s) M79.674 and Pain in left toe(s) M79.675 [facility] [address] [place] [address] [id number] 02/28/2024 MARLA [place]G Fungal infection of nail B35.1 ; Pain in right toe(s) M79.674 ; Pain in left toe(s) M79.675 and Unspecified atherosclerosis of nikolai arteries of extremities, bilateral legs I70.203 [facility] [place] [address] [address] [place] [address] [id number] 07/17/2024 MARLA [place] Fungal infection of nail B35.1 ; Pain in right toe(s) M79.674 ; Pain in left toe(s) M79.675 and Unspecified atherosclerosis of nikolai arteries of extremities, bilateral legs I70.203 Assessments [...] any subungual debris and necrotic tissue removed 07/17/2024 Fungal infection of nail (ICD-10 - B35.1) Nails 1-5 Bilateral were debrided extensively with nail nippers and emery board, reducing length and girth to pink healthy tissue with any subungual debris and necrotic tissue removed 09/18/2024 Fungal infection of nail (ICD-10 - B35.1) Nails 1-5 Bilateral were debrided extensively with nail nippers and emery board, reducing length and girth to pink healthy tissue with any subungual debris and necrotic tissue removed 11/20/2024 Fungal infection of nail (ICD-10 - B35.1) Nails 1-5 Bilateral were debrided extensively with nail nippers and emery board, reducing length and girth to pink healthy tissue with any subungual debris and necrotic tissue removed 11/20/2024 Pain in right toe(s) (ICD-10 - M79.674) 09/18/2024 Pain in right toe(s) (ICD-10 - M79.674) 07/17/2024 Pain in right toe(s) (ICD-10 - M79.674) 02/28/2024 Pain in left toe(s) (ICD-10 - M79.675) 12/13/2023 Pain in right toe(s) (ICD-10 - M79.674) 12/13/2023 Pain in left toe(s) (ICD-10 - M79.675) 02/28/2024 Unspecified atherosclerosis of nikolai arteries of extremities, bilateral legs (ICD-10 - I70.203) 07/17/2024 Pain in left toe(s) (ICD-10 - M79.675) 09/18/2024 Pain in left toe(s) (ICD-10 - M79.675) 11/20/2024 Pain in left toe(s) (ICD-10 - M79.675) 11/20/2024 Unspecified atherosclerosis of nikolai arteries of extremities, bilateral legs (ICD-10 - I70.203) 09/18/2024 Unspecified atherosclerosis of nikolai arteries of extremities, bilateral legs (ICD-10 - I70.203) 07/17/2024 Unspecified atherosclerosis of nikolai arteries of extremities, bilateral legs (ICD-10 - I70.203) Plan Of Treatment Next Appt Details Provider Name:MARLA GALLARDO, 01/15/2025 09:50:00 AM, [address], [facility] [address], [place], [place], [id number], Insurance Providers Payer Name Payer Address Payer Phone Subscriber Number Group Number Insured Name Patient Relationship to Insured Coverage Start Date Coverage End Date Medicare Part B [facility] [address] [facility] [place] [address] [id number] Zaire Arvizu Self - patient is the insured [employer] Medicare Supplemental Benefit Plans [address] [address] [place], [place] [id number] Zaire Arvizu Self - patient is the insured Medical (General) History Medical History History ICD Code kidney stones Leg/Feet cramps Arthritis Sleep apnea Surgical History Surgery Date(Month/Year) tonsillectomy KIDNEY STONES Right Leg
[2024-11-25 07:13] LABS: Hematocrit 44.3 % (42.0-52.0); Hemoglobin 14.3 g/dL (14.0-18.0); Immature Granulocyte Percent A 0.3 % (0-0.5); Lymphocytes Absolute Auto 1.58 K/mm3 (0.9-3.2); Mean Corpuscular HGB Conc 32.3 g/dl (32-36); Mean Corpuscular Hemoglobin 29.0 pg (26-34); Mean Corpuscular Volume 89.9 fl (80-100); Nucleated Red Blood Cells Absolute Auto 0.000 K/mm3 (0.0-0.012); Nucleated Red Blood Cells Perc 0.0 % (0.0-0.2); Platelet Count Result 224 k/mm3 (150-375); Red Blood Count 4.93 M/mm3 (4.6-6.20); White Blood Count 7.1 K/mm3 (4.5-10.0)
[2024-11-25 07:40] LABS: Alanine Aminotransferase 41 U/L (6-50); Albumin Level 4.0 g/dL (3.5-5.1); Alkaline Phosphatase 69 U/L (38-126); Anion Gap 8 mmol/L (4-12); Aspartate Amino Transferase 30 U/L (17-59); Bilirubin,Total 0.9 mg/dL (0.2-1.3); Blood Urea Nitrogen 15 mg/dL (9-20); Calcium 9.5 mg/dL (8.4-10.2); Carbon Dioxide 27 mmol/L (22-30); Chloride 105 mmol/L (98-107); Cholesterol 171 mg/dL (0-200); Estimated Glomerular Filt Rate > 60; Glucose 116 mg/dL (65-110); HDL Direct 49 mg/dL; Potassium 4.3 mmol/L (3.4-5.0); Sodium 140 mmol/L (137-145); Total Protein 6.9 g/dL (6.3-8.2); Triglycerides 94 mg/dL (<150)
[2024-11-25 07:52] LABS: Hemoglobin A1C 5.9 % (<5.7)
[2024-11-25 08:16] LABS: Thyroid Stimulating Hormone 2.070 uIU/mL (0.465-4.680)
== END 2024-11-25 06:33 | disposition home or self-care (01) ==
PROVIDERS: PCP Nurse Practitioner; Visit Provider Family Medicine
DX: E29.1 Testicular hypofunction (principal); I10 Essential (primary) hypertension; N40.0 Benign prostatic hyperplasia without lower urinary tract symptoms; R53.83 Other fatigue; R60.9 Edema, unspecified; R35.1 Nocturia; R73.9 Hyperglycemia, unspecified
CPT/HCPCS: 36415; 80053; 80061; 83036; 84443; 85025

== ENCOUNTER 2025-01-01 08:25 | Outpatient (CLI) | payer MEDICARE, SELFPAY ==
--- OUTSIDE RECORDS SUMMARY | 2009-04-30 05:00 | XMS_ITS | Continuity of Care Document ---
Author Organization [facility] Address [address] [place] [address] Phone Care Team Providers Care Mold Filler Name Role Phone Orellana OD, Tony Unavailable Unavailable Procedures Procedure Date Refraction Office/outpatient Visit, Est Progressive Lens, Plastic Frames Deluxe Tint Photochromatic, Plastic Tax - Medical Eye Exam & Treatment Refraction Eye Exam & Treatment Refraction Advance Directives Directive Yes / No Effective Date File Name No Information Encounters Encounter Description Practice Location Reason(s) For Visit Diagnoses Date Provider Providers Copied on Encounter [facility], [address] [place] [address] [address], [place], [place], [id number], [place] tel:[phone] [facility] No Information 2-201 0 Orellana OD Tony. [address] , [address], [place], [place], [facility], . tel:[phone] Office/outpat ient Visit, Est [facility], [address], [place], [place], [address], [place] tel:[phone] [facility] No Information 4-200 9 Doisy Edmak. [address], [address], [place], [place], [facility], [place]. tel:[phone] [facility], [address], [place], [place], [address], [place] tel:[phone] [facility] No Information 8 [employer] [facility] [employer] . [address], [address], [place], [place], [address], [place]. tel:[phone] Referring Provider: Gregory Ram, [address] [place] [address] [address], [place], [address]. tel:[phone] sulting Provider: Khoa Stephens, [address] [place], [place] [address]ate [facility], [place], [place], [facility]. tel:[phone] [facility], [address], [place], [place], [address], tel:[phone] [facility] No Information 8 Khang Jenkins. [address] [place] [address] , [address], [place], [place], [facility], [place]. tel:[phone] [facility], [id number] [place] [address] [address], [place], [place], [address], [place] tel:[phone] [facility] No Information 7 Khang Jenkins. [address] [place] [address] , [address], [place], [address], [place]. tel:[phone] Family History Family Member Type Diagnosis Age At Onset No Information Payers Payer name Insurance type Covered alliance party ID Authoriza tion(s) No Information Social History [...]
--- OUTSIDE RECORDS SUMMARY | 2024-05-29 06:40 | XMS_ITS ---
Author Organization [facility] Address [address] [place], [place] [phone] Care Team Providers Care Price Lister Name Role Phone MARLA STEEL Unavailable [phone] Forrest Castañeda Unavailable Unavailable REASON FOR VISIT *General care Encounters Encounter Location Date Provider Diagnosis [facility] [place] [address] [facility] 5 [place], [place] [phone] 05/29/2024 MARLA STEEL Plan Of Treatment Next Appt Details Provider Name:MARLA GALLARDO, 01/15/2025 09:50:00 AM, [address], [place], [place], [id number], Progress Notes * ADRIANA ZaireDOB:1950 (74 yo M)Acc No.[id number]:05/29/2024 Patient: Jj ANTWONZaire LAWRENCE Provider: Jj Steel DPM :1950 A ge:73 Y S ex:Male Date:05/29/2024 Address:[address] [place] [address] [place], [place] Subjective: * Chief Complaints: * 1 . *General care. * Medical History: Objective: * Vitals: Assessment: Plan: * Treatment: * Billing Information: * Visit Code: * Procedure Codes: * Electronic signature of MARLA STEEL DPM on 01/01/2025 at 08:37 AM CDT Sign off status: Pending * Provider: Jj tSeel, DPM Date: 0 05/29/2024 Generated for Marcos calix/Kleber/Beulah on: 1 08:37 AM CDT
--- OUTSIDE RECORDS SUMMARY | 2024-11-18 04:30 | XMS_ITS ---
Author Organization [facility] [place] ([address]) Address [address] [place] [address] Care Team Providers Care Record Systems Analyst Name Role Phone Forrest Castañeda Primary Care Provider UnavailSilva Rai Unavailable [phone] Christiano Meyers [phone] REASON FOR VISIT SCIT (Aeroallergen) Encounters Encounter Location Date Provider Diagnosis [facility] [address] [place] [address] 11/18/2024 Christiano Meyers Plan Of Treatment No Information Progress Notes * Zaire PAZDOB:1950 (74 yo M)Acc No.[id number]:11/18/2024 SCIT-Aeroallergen Patient: Zaire RHODES Provider: Hamilton Meyers MD :1950 A ge:74 Y S ex:Male Date:11/18/2024 Address:[address] [place], [place] [phone] Pcp:Forrest Castañeda Subjective: * Chief Complaints: * 1 . SCIT (Aeroallergen). * Medical History: Objective: * Vitals: Assessment: Plan: * Treatment: * Billing Information: * Visit Code: * Procedure Codes: * Electronic signature of Sandi Meyers MD, FAAAAI on 01/01/2025 at 08:36 AM CDT Sign off status: Pending * Provider: Hamilton Meyers MD Date: 0 11/18/2024 Generated for Printi ng/Faxing/eTransmitting on: 1 08:36 AM CDT
--- OUTSIDE RECORDS SUMMARY | 2024-11-20 06:20 | XMS_ITS ---
Author Organization [facility] Address [address] [place], [place] [address] Care Team Providers Care Customer Sales Service Manager Name Role Phone MARLA STEEL Unavailable [phone] Forrest Castañeda Unavailable Unavailable Allergies No Known Allergies REASON FOR VISIT *General care Medications Medication SIG (Take, Route, Frequency, Duration) Notes Start Date End Date Status hydroCHLOROthiazide 25 MG 1 tablet in th e morning Orally Once a day Active Montelukast Sodium 10 MG 1 tablet Orally Once a day Active Tamsulosin HCl 0.4 MG 1 capsule Orally O nce a day Active Aspirin 81 81 MG 1 tablet Orally Once a day Active Vital Signs Weight 245 lbs 11/20/2024 Weight-kg 111.13 kg 11/20/2024 Height 71 in 11/20/2024 Height-cm 180.34 cm 11/20/2024 BMI 34.17 kg/m2 11/20/2024 Encounters Encounter Location Date Provider Diagnosis [facility] [address] [place], [place] [id number] 11/20/2024 MARLA STEEL Fungal infection of nail B35.1 ; Pain in right toe(s) M79.674 ; Pain in left toe(s) M79.675 and Unspecified atherosclerosis of [place] arteries of extremities, bilateral legs I70.203 Assessments Encounter Date Diagnosis (ICD Code) Assessment Notes Treatment Notes Treatment Clinical Notes Section Notes 11/20/2024 Fungal infection of nail (ICD-10 - B35.1) Nails 1-5 Bilateral were debrided extensively with nail nippers and emery board, reducing length and girth to pink healthy tissue with any subungual debris and necrotic tissue removed 11/20/2024 Pain in right toe(s) (ICD-10 - M79.674) 11/20/2024 Pain in left toe(s) (ICD-10 - M79.675) 11/20/2024 Unspecified atherosclerosis of [place] arteries of extremities, bilateral legs (ICD-10 - I70.203) Plan Of Treatment Treatment Notes Assessment Notes Fungal infection of nail Nails 1-5 Bilat eral were debrided extensively with nail nippers and emery board, reducing length and girth to pink healthy tissue with any subungual debris and necrotic tissue removed Next Appt Details Provider Name:MARLA GALLARDO, 01/15/2025 09:50:00 AM, [address], [address], [id number], Progress Notes * ADRIANA ZaireDOB:1950 (74 yo M)Acc No.[id number]:11/20/2024 Patient: Zaire RHODES Provider: Jj Steel DPM :1950 A ge:74 Y S ex:Male Date:11/20/2024 Address:[address] [place], [place] [id number] Subjective: * Chief Complaints: * 1 . [...] Date last seen by Dr. Castañeda was October., Initials IR. * ROS: G eneral / Constitutional: Patient [...] .K.D.A. Objective: * Vitals: S hoe Size: 11.5, Wt: 245 lbs, Wt-k.13 kg, Ht: 71 [...] M79.675 4 . U nspecified atherosclerosis of [place] arteries of extremities, bilateral legs - I70.203 Plan: * Treatment: * Procedure Codes: 1 1721 DEBRIDE NAIL, 6 OR MORE, Modifiers: Q8 * Preventive Medicine: Screenings: F all risk screening Fall Risk Assessment: N o falls in the past year * Billing Information: * Visit Code: * Procedure Codes: 18508 DEBRIDE NAIL, 6 OR MORE. Modifiers: Q8 * Electronic signature of MARLA STEEL DPM on 01/01/2025 at 08:36 AM CDT Sign off status: Pending * Provider: Jj Steel DPM Date: 0 11/20/2024 Generated for Oliviai yogi/Kleber/eTransmitting on: 1 08:36 AM CDT History and Physical Notes * [...] Date last seen by Dr. Castañeda was October., Initials IR Examination Category Sub-Category Detail Notes Category Not [...]
--- NOTE | ~2025-01-01 | XR_ITS ---
EXAMINATION: XR UGIAC wo kub DATE: 01/01/2025 09:07 INDICATION: Chronic throat clearing and burping TECHNIQUE: The patient drank thick barium, gas-producing crystals, and thin barium. A total of 593 fluoroscopic images of the esophagus, stomach, and proximal small bowel were obtained. Fluoroscopy exposure time was 1.3 minutes. Total DAP was 14.148 Gycm^2. COMPARISON: None. FINDINGS: The esophagus is normal without mass or stricture. Esophageal motility is normal. There is no hiatal hernia. There was no gastroesophageal reflux with provocative maneuvers. The stomach and proximal small bowel are normal. IMPRESSION: 1. Normal upper GI study Reviewed, dictated and finalized at location A. IMPRESSION: 1. Normal upper GI study
--- OUTSIDE RECORDS SUMMARY | 2025-01-01 08:36 | XMS_ITS | Encounter Summary ---
Author Organization [facility] Address [address] [facility] [place] [address] Care Team Providers Care Marketing Operations Associate Name Role Phone Unavailable Primary Care Provider Unavailabl e Encounter Details Date Type Department Care Team (Late st Contact Info) Description 07/18/2017 Lab Requisition [facility] DermPath Lab [address] [facility] [place] [address] Adarsh Bryant MD [address] [place] [address] Social History Tobacco Use Types Packs/Day Years Used Date Smoking Tobacco: Never Assessed Sex and Gender Information Value Date Recorded Sex Assigned at Not on file 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 Jar 0. [...] characteristic determined by the Dermatopathology Laboratory at [facility]. These tests need not be, and therefore are not, approved by the [place] Food and Drug Administration. The tests are used for clinical purposes. Billing Codes Specimen Charges Stain Charges 43849 1 3:46 PM CDT DERMATOPATHOLOGY LABORATORY Embedded Images 3:46 PM CDT DERMATOPATHOLOGY LABORATORY Pathology/Cytolog y TISSUE SPECIMEN FROM SKIN / Unknown 07/17/2017 07/18/2017 12:44 PM CDT Adarsh Bryant MD LAB - PATHOLOGY/CYTOLOGY ORD ERABLES Final Result DERMATOPATHOLOGY LABORATORY [facility] - Department of Dermatology [address] [facility], 5th [place] [address], [facility] [phone] documented in this encounter Visit Diagnoses Not on filedocumented in this encounter
--- OUTSIDE RECORDS SUMMARY | 2025-01-01 08:36 | XMS_ITS | Patient Health Record ---
Author Organization [facility] [place] ([address]) Address [address] [place] [address] Care Team Providers Care Director Of Patient Financial Services Name Role Phone Forrest Castañeda Primary Care Provider Silva Thomas Unavailable [phone] Christiano Meyers Unavailable [phone] Allergies No Known Allergies Reason For Referral [...] review and pick correct strength-formula tion from [employer] options. If intended option is not shown, [...] review and pick correct strength-formula tion from [employer] options. If intended option is not shown, discontinue and re-order from Quick Search* Active SONG Active Aspirin *Please review and pick correct strength-formula tion from [employer] options. If intended option is not shown, [...] Status Risk Notes Problem Chronic allergic conjunctivitis (22551715) Other chronic allergic conjunctivitis (H10.45) Active confirmed Problem Essential hypertension (79998435) Essential (primary) hypertension (I10) Active confirmed Problem Allergic rhinitis caused by pollen (disorder) (16726375) Allergic rhinitis due to pollen (J30.1) Active confirmed Problem Allergic rhinitis caused by animal hair and dander (059416368782846) Allergic rhinitis due to animal (cat) (dog) hair and dander (J30.81) Active confirmed Problem Allergic rhinitis (04313398) Other allergic rhinitis (J30.89) Active confirmed Problem Chronic sinusitis (37904281) Chronic sinusitis, unspecified (J32.9) Active confirmed Problem Uncomplicated moderate persistent asthma (302582095) Moderate persistent asthma, uncomplicated (J45.40) Active confirmed Problem Allergic rhinitis caused by pollen (disorder) (71067825) Allergic rhinitis due to pollen (J30.1) Active confirmed Problem Allergic rhinitis caused by animal hair and dander (168274262230017) Allergic rhinitis due to animal (cat) (dog) hair and dander (J30.81) Active confirmed Problem Allergic rhinitis (05502748) Other allergic rhinitis (J30.89) Active confirmed Problem Chronic allergic conjunctivitis (95992861) Other chronic allergic conjunctivitis (H10.45) Active confirmed Vital Signs Oximetry 96 % 05/14/2024 Blood pressure diastolic 81 mm Hg 05/14/2024 Height 71 in 05/14/2024 Blood pressure systolic 170 mm Hg 05/14/2024 Weight 257.4 lbs 05/14/2024 BMI 35.9 kg/m2 05/14/2024 Encounters Encounter Location Date Provider Diagnosis [facility] [address] [place] [phone] 11/20/2024 Silva Lafleur Allergic rhinitis du e to pollen J30.1 ; Allergic rhinitis due to animal (cat) (dog) hair and dander J30.81 ; Other allergic rhinitis J30.89 and Other chronic allergic conjunctivitis H10.45 [facility] [address] [place] [address] [employer] [address] [phone] 10/09/2024 Silva Lafleur Allergic rhinitis du e to pollen J30.1 ; Allergic rhinitis due to animal (cat) (dog) hair and dander J30.81 ; Other allergic rhinitis J30.89 and Other chronic allergic conjunctivitis H10.[address] [employer] [address] [phone] 09/18/2024 Silva Lafleur Allergic rhinitis du e to pollen J30.1 ; Allergic rhinitis due to animal (cat) (dog) hair and dander J30.81 ; Other allergic rhinitis J30.89 and Other chronic allergic conjunctivitis H10.[address] [employer] [address] [phone] 09/10/2024 Silva Lafleur Allergic rhinitis du e to pollen J30.1 ; Allergic rhinitis due to animal (cat) (dog) hair and dander J30.81 ; Other allergic rhinitis J30.89 and Other chronic allergic conjunctivitis H10.45 [facility] [address] [place], [place] [address] [address] [phone] 08/13/2024 Silvaelijah Badillom Allergic rhinitis du e to pollen J30.1 ; Allergic rhinitis due to animal (cat) (dog) hair and dander J30.81 ; Other allergic rhinitis J30.89 and Other chronic allergic conjunctivitis H10.45 [facility] [address] [place], [place] [address] [address] [phone] 06/25/2024 Silvaelijah Badillom Allergic rhinitis du e to pollen J30.1 ; Allergic rhinitis due to animal (cat) (dog) hair and dander J30.81 ; Other allergic rhinitis J30.89 and Other chronic allergic conjunctivitis H10.45 [facility] [address] [place] [address] [employer] [address] [phone] 05/28/2024 Silvaelijah Badillom Allergic rhinitis du e to pollen J30.1 ; Allergic rhinitis due to animal (cat) (dog) hair and dander J30.81 ; Other allergic rhinitis J30.89 and Other chronic allergic conjunctivitis H10.45 [facility] [address] [place], [place] [address] [address] [phone] 05/21/2024 Silvaelijah Lafleur Allergic rhinitis du e to pollen J30.1 ; Allergic rhinitis due to animal (cat) (dog) hair and dander J30.81 ; Other allergic rhinitis J30.89 and Other chronic allergic conjunctivitis H10.45 [facility] [address] [place], [place] [address] [address] [address] 05/13/2024 Silva Ciarra Allergic rhinitis du e to pollen J30.1 ; Allergic rhinitis due to animal (cat) (dog) hair and dander J30.81 ; Other allergic rhinitis J30.89 and Other chronic allergic conjunctivitis H10.45 [facility] [address] [place], [place] [address] [address] [place] [phone] 05/07/2024 Silvaelijah Badillom Allergic rhinitis du e to pollen J30.1 ; Allergic rhinitis due to animal (cat) (dog) hair and dander J30.81 ; Other allergic rhinitis J30.89 and Other chronic allergic conjunctivitis H10.45 [facility] [address] [place] [phone] 04/09/2024 Silva Lafleur Allergic rhinitis du e to pollen J30.1 ; Allergic rhinitis due to animal (cat) (dog) hair and dander J30.81 ; Other allergic rhinitis J30.89 and Other chronic allergic conjunctivitis H10.[address] [address] 03/05/2024 Silva Lafleur Allergic rhinitis du e to pollen J30.1 ; Allergic rhinitis due to animal (cat) (dog) hair and dander J30.81 ; Other allergic rhinitis J30.89 and Other chronic allergic conjunctivitis H10.[address] [address] 02/05/2024 Silva Lafleur Allergic rhinitis du e to pollen J30.1 ; Allergic rhinitis due to animal (cat) (dog) hair and dander J30.81 ; Other allergic rhinitis J30.89 and Other chronic allergic conjunctivitis H10.[address] [phone] 01/02/2024 Silva Lafleur Allergic rhinitis du e to pollen J30.1 ; Allergic rhinitis due to animal (cat) (dog) hair and dander J30.81 ; Other allergic rhinitis J30.89 and Other chronic allergic conjunctivitis H10.[address] [address] 05/14/2024 Silva Lafleur Chronic sinusitis, unspecified J32.9 ; Allergic rhinitis due to pollen J30.1 ; Allergic rhinitis due to animal (cat) (dog) hair and dander J30.81 ; Other allergic rhinitis J30.89 ; Other chronic allergic conjunctivitis H10.45 and Essential (primary) hypertension I10 Assessments Encounter Date Diagnosis (ICD Code) Assessment Notes Treatment Notes Treatment Clinical Notes Section Notes 01/02/2024 Allergic rhinitis due to pollen (ICD-10 - J30.1) 02/05/2024 Allergic rhinitis due to pollen (ICD-10 - J30.1) 03/05/2024 Allergic rhinitis due to pollen (ICD-10 - J30.1) 04/09/2024 Allergic rhinitis due to pollen (ICD-10 - J30.1) 05/07/2024 Allergic rhinitis due to pollen (ICD-10 - J30.1) 05/13/2024 Allergic rhinitis due to pollen (ICD-10 [...] as a trial with 2 sprays BID 05/21/2024 Allergic rhinitis due to pollen (ICD-10 - J30.1) 05/28/2024 Allergic rhinitis due to pollen (ICD-10 - J30.1) 06/25/2024 Allergic rhinitis due to pollen (ICD-10 - J30.1) 08/13/2024 Allergic rhinitis due to pollen (ICD-10 - J30.1) 09/10/2024 Allergic rhinitis due to pollen (ICD-10 - J30.1) 09/18/2024 Allergic rhinitis due to pollen (ICD-10 - J30.1) 10/09/2024 Allergic rhinitis due to pollen (ICD-10 - J30.1) 05/14/2024 Chronic sinusitis, unspecified (ICD-10 - J32.9) Chronic sinusitis s/p balloon sinuplasty x2. No interval sinusitis. We discussed continuing SCIT to complete 5 years of therapy. Also consider GERD as a cause for throat clearing. Recommend trial of omeprazole or waiting for ENT evaluation 11/20/2024 Allergic rhinitis due to pollen (ICD-10 - J30.1) 11/20/2024 Allergic rhinitis due to animal (cat) [...] hair and dander (ICD-10 - J30.81) 01/02/2024 Other allergic rhinitis (ICD-10 - J30.89) 02/05/2024 Other allergic rhinitis (ICD-10 - J30.89) 03/05/2024 Other allergic rhinitis (ICD-10 - J30.89) 04/09/2024 Other allergic rhinitis (ICD-10 - J30.89) 05/07/2024 Other allergic rhinitis (ICD-10 - J30.89) 05/13/2024 Other allergic rhinitis (ICD-10 - J30.89) 05/21/2024 Other allergic rhinitis (ICD-10 - J30.89) 05/14/2024 Other allergic rhinitis (ICD-10 - J30.89) 05/28/2024 Other allergic rhinitis (ICD-10 - J30.89) 06/25/2024 Other allergic rhinitis (ICD-10 - J30.89) 08/13/2024 Other allergic rhinitis (ICD-10 - J30.89) 09/10/2024 Other allergic rhinitis (ICD-10 - J30.89) 09/18/2024 Other allergic rhinitis (ICD-10 - J30.89) 10/09/2024 Other allergic rhinitis (ICD-10 - J30.89) 11/20/2024 Other allergic rhinitis (ICD-10 - J30.89) 05/21/2024 Other chronic allergic conjunctivitis (ICD-10 - [...] including intraocular antihistamine/ma st cell stabilizer, PRN 05/13/2024 Other chronic allergic conjunctivitis (ICD-10 - [...] Insured Coverage Start Date Coverage End Date [employer] (Medicare) Attention Claims [address] [facility] [place] [address] [id number] Zaire Arvizu Self - patient is the insured [employer] [address] [address] [place] [phone] [phone] [id number] Zaire Arvizu Self - patient is the insured Medical (General) History Medical History History ICD Code Other seasonal allergic rhinitis J30.2 Allergic rhinitis due to pollen J30.1 Surgical History Surgery Date(Month/Year) tonsillectomy balloon sinuplasty 12/26/2018 broken rt leg septoplasty
--- OUTSIDE RECORDS SUMMARY | 2025-01-01 08:36 | XMS_ITS | Encounter Summary ---
Author Organization [facility] Address [address] [facility] [place] [address] Care Team Providers Care Court Manager Name Role Phone Unavailable Primary Care Provider Unavailabl e Encounter Details Date Type Department Care Team (Late st Contact Info) Description 04/23/[address] 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 Physician [facility] - Received: 04/25/2024 06:08 AM DermPath Lab Pathologist: Laurel Lizarraga MD Specimens: A) - Skin, left cheek B) - Skin, upper back C) - Skin, left thigh 2:24 PM WELDER EXPLOSION DERMATOPATHOLOGY LABORATORY Final Diagnosis Specimen A. SKIN, left cheek: ACTINIC KERATOSIS (L57.0) Specimen B. SKIN, upper back: LICHEN PLANUS-LIKE KERATOSIS (BENIGN LICHENOID KERATOSIS) (L82.1) Specimen C. SKIN, left thigh: SQUAMOUS CELL CARCINOMA, WELL DIFFERENTIATED (C44.729) 2:24 PM [facility] DERMATOPATHOLOGY LABORATORY at 1424 WELDER EXPLOSION Clinical History A: AK vs SCC B: R/O ISK C: R/O SCC 2:24 PM [facility] DERMATOPATHOLOGY LABORATORY Gross Description Specimen [...] 10x9x4 mm. Jar 0. 2:24 PM [facility] DERMATOPATHOLOGY LABORATORY Microscopic Description Specimen [...] evidence of premature cornification. 2:24 PM [facility] DERMATOPATHOLOGY LABORATORY Disclaimer An external and internal positive and negative controls are appropriate for the histochemical, immunohistochemical and immunofluorescence stain(s) in this case (if any), except where stated explicitly. The performance characteristics of the stain(s) cited in this report were developed and its performance characteristic determined by the Dermatopathology Laboratory at [facility], directed by Dr. Robby Juarez. These tests need not be, and therefore are not, approved by the [place] Food and Drug Administration. The tests are used for clinical purposes. Billing Codes Specimen Charges Stain Charges 17032 00556 00101 1 1 1 2:24 PM [facility] DERMATOPATHOLOGY LABORATORY Embedded Images 2:24 PM [facility] DERMATOPATHOLOGY LABORATORY Pathology/Cytology TISSUE SPECIMEN FROM SKIN / Unknown 04/23/2024 11:13 AM WELDER EXPLOSION 04/25/2024 6:08 AM WELDER EXPLOSION Miscellaneous samples (specimen) TISSUE SPECIMEN FROM SKIN / Unknown 04/23/2024 11:13 AM WELDER EXPLOSION 04/25/2024 6:08 AM WELDER EXPLOSION Miscellaneous samples (specimen) TISSUE SPECIMEN FROM SKIN / Unknown 04/23/2024 11:13 AM WELDER EXPLOSION 04/25/2024 6:08 AM WELDER EXPLOSION us Yuliana Wall MD LAB - PATHOLOGY/CYTOLOGY ORD ERABLES Final Result DERMATOPATHOLOGY LABORATORY [facility] - Department of Dermatology [facility] Specialized Medicine [address] [place] [address], [address] [phone] documented in this encounter Visit Diagnoses Not on filedocumented in this encounter
--- OUTSIDE RECORDS SUMMARY | 2025-01-01 08:36 | XMS_ITS | Clinical Summary ---
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
--- OUTSIDE RECORDS SUMMARY | 2025-01-01 08:36 | XMS_ITS | Clinical Summary ---
Author Organization [facility] Address [address] [place] [address] Care Team Providers Care Resident Care Spec Name Role Phone Unavailable Primary Care Provider Unavailabl e Source Comments [facility],non-owned Affiliates and Associated Physician Practices is amultiple site organization consisting of ambulatory clinics and hospital sitesin [place], [place], [place] and [place]. This disclosure is being madepursuant to the Care Everywhere program and may not contain all information available regarding this patient. 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
--- OUTSIDE RECORDS SUMMARY | 2025-01-01 08:37 | XMS_ITS | Patient Health Record ---
Author Organization [facility] Address [address] [place], [place] [id number] Care Team Providers Care Patent Solicitor Name Role Phone MARLA WILLIAM Unavailable [phone] CastañedaForrest Unavailable Unavailable Allergies No Known Allergies [...] Date Provider Diagnosis [facility] [address] [place] [phone] 11/20/2024 MARLA WILLIAM Fungal infection of nail B35.1 ; Pain in right toe(s) M79.674 ; Pain in left toe(s) M79.675 and Unspecified atherosclerosis of [place] arteries of extremities, bilateral legs I70.203 [facility] [address] [place], [place] [phone] 02/28/2024 MARLA WILLIAM Fungal infection of nail B35.1 ; Pain in right toe(s) M79.674 ; Pain in left toe(s) M79.675 and Unspecified atherosclerosis of [place] arteries of extremities, bilateral legs I70.203 [facility] [place] [address] [place] [phone] 07/17/2024 MARLA WILLIAM Fungal infection of nail B35.1 ; Pain in right toe(s) M79.674 ; Pain in left toe(s) M79.675 and Unspecified atherosclerosis of [place] arteries of extremities, bilateral legs I70.203 [facility] [place] [address] [place] [id number] 09/18/2024 MARLA WILLIAM Fungal infection of nail B35.1 ; Pain in right toe(s) M79.674 ; Pain in left toe(s) M79.675 and Unspecified atherosclerosis of [place] arteries of extremities, bilateral legs I70.203 Assessments Encounter Date Diagnosis (ICD Code) Assessment Notes Treatment Notes Treatment Clinical Notes Section Notes 02/28/2024 Pain in right toe(s) (ICD-10 - [...] (ICD-10 - M79.675) 02/28/2024 Unspecified atherosclerosis of [place] arteries of extremities, bilateral legs (ICD-10 - I70.203) 07/17/2024 Pain in left toe(s) (ICD-10 - M79.675) 09/18/2024 Pain in left toe(s) (ICD-10 - M79.675) 11/20/2024 Pain in left toe(s) (ICD-10 - M79.675) 11/20/2024 Unspecified atherosclerosis of [place] arteries of extremities, bilateral legs (ICD-10 - I70.203) 09/18/2024 Unspecified atherosclerosis of [place] arteries of extremities, bilateral legs (ICD-10 - I70.203) 07/17/2024 Unspecified atherosclerosis of [place] arteries of extremities, bilateral legs (ICD-10 - I70.203) Plan Of Treatment Next Appt Details Provider Name:MARLA GALLARDO, 01/15/2025 09:50:00 AM, [address], [facility] [address], [place], [place], [id number], Insurance Providers Payer Name Payer Address Payer Phone Subscriber Number Group Number Insured Name Patient Relationship to Insured Coverage Start Date Coverage End Date Medicare Part B [place] [address] [place] [address] [id number] Zaire Arvizu Self - patient is the insured [employer] Medicare Supplemental Benefit Plans [id number] [address] [address] [place], [place] [phone] [id number] Zaire Arvizu Self - patient is the insured Medical (General) History Medical History History ICD Code kidney stones Leg/Feet cramps Arthritis Sleep apnea Surgical History Surgery Date(Month/Year) tonsillectomy KIDNEY STONES Right Leg
--- OUTSIDE RECORDS SUMMARY | 2025-01-01 08:37 | XMS_ITS | Encounter Summary ---
Author Organization [facility] Address [address] [facility] [place] [address] Care Team Providers Care Foundry Process Engineer Name Role Phone Unavailable Primary Care Provider Unavailabl e Encounter Details Date Type Department Care Team (Late st Contact Info) Description 05/14/2024 Lab Requisition [facility] Physician [facility] - DermPath Lab [address] [facility], [facility] [place] [place] [address] Yuliana Wall MD [address] [facility] 3 [place] [address] Social History Tobacco Use Types Packs/Day Years Used Date Smoking Tobacco: Never Assessed Sex and Gender Information Value Date Recorded Sex Assigned at Not on file Legal Sex Male 5:42 PM DENTURE FINISHER Gender Identity Not on file Sexual Orientation Not on file documented as of this encounter Plan of Treatment Not on file documented as of this encounter Procedures Procedure Name Priority Date/Time Associated Diagnosis Comments DERMATOPATHOLOGY Routine 05/14/2024 3:42 PM DENTURE FINISHER documented in this encounter Results * DERMATOPATHOLOGY (05/14/2024 3:42 PM DENTURE FINISHER) Case Report Dermatopathology Report Case: [id number] Authorizing Provider: Yuliana Wall MD Collected: 05/14/2024 03:42 PM Ordering Location: [facility] Physician [facility] - Received: 05/16/2024 07:03 AM DermPath Lab Pathologist: Laurel Lizarraga MD Specimen: Skin, left thigh 1:44 PM DENTURE FINISHER DERMATOPATHOLOGY LABORATORY Final Diagnosis Specimen A. 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 Jar 0. 1:44 PM [facility] DERMATOPATHOLOGY LABORATORY Microscopic Description Specimen A. SKIN, left thigh: There are fibroblasts and collagen bundles oriented parallel to the skin surface. There are elongated blood vessels, some of which are oriented perpendicular to the skin surface. No residual squamous cell carcinoma is identified. 1:44 PM [facility] DERMATOPATHOLOGY LABORATORY Disclaimer An external and internal positive and negative controls are appropriate for the histochemical, immunohistochemical and immunofluorescence stain(s) in this case (if any), except where stated explicitly. The performance characteristics of the stain(s) cited in this report were developed and its performance characteristic determined by the Dermatopathology Laboratory at [facility], directed by Dr. Robby Juarez. These tests need not be, and therefore are not, approved by the [place] Food and Drug Administration. The tests are used for clinical purposes. Billing Codes Specimen Charges Stain Charges 39204 1 1:44 PM [facility] DERMATOPATHOLOGY LABORATORY Embedded Images 1:44 PM [facility] DERMATOPATHOLOGY LABORATORY Pathology/Cytolo gy TISSUE SPECIMEN FROM SKIN / Unknown 05/14/2024 3:42 PM DENTURE FINISHER 05/16/2024 7:03 AM [facility] us Yuliana Wall MD LAB - PATHOLOGY/CYTOLOGY ORD ERABLES Final Result DERMATOPATHOLOGY LABORATORY [facility] - Department of Dermatology [address], [address] [phone] documented in this encounter Visit Diagnoses Not on filedocumented in this encounter
--- OUTSIDE RECORDS SUMMARY | 2025-01-01 08:37 | XMS_ITS | Patient Health Record ---
Author Organization [email or web address] Address [address] [place] [address] ANTHONY Villafuerte [address] Care Team Providers Care Car Distributor Name Role Phone Forrest Castañeda MD Primary Care Provider UnavailAstrid Brantley Unavailable [phone] Lubna Perez Unavailable [phone] Allergies No Known Allergies Reason For Referral No Information Medications Medication SIG (Take, Route, Frequency, Duration) Notes Start Date End Date Status Tamsulosin HCl Activ e Lisinopril-hydroCHLOR Othiazide Active OTC/Vitamins ASA. MVI, Azelastine, Allergy Relief, Glucosamine/Chond roitin Active Montelukast Sodium A ctive Jeannine Active busPIRone HCl Active Omeprazole Active Immunizations Vaccine Route Administration Date Status Comme nts Pneumococcal polysaccharide PPV23 Unknown 07/01/2021 Ad ministered Zoster Unknown 08/08/2014 Administered Zoster Unknown 07/01/2021 Administered Social History Tobacco Use: Social History Observation Description Date Details (start date - stop date) Never Smoker NA - NA Tobacco Control (Standard) Question Answer Notes Tobacco use: Nonsmoker Vital Signs Height 71 in 12/22/2024 Weight 255 lbs 12/22/2024 BMI 35.56 kg/m2 12/22/2024 Encounters Encounter Location Date Provider Diagnosis [facility] [address] [place] [address] Dr. [address] [place] [address] 12/22/2024 Astrid Guzman Chronic throat clearing R68.89 ; Burping R14.2 ; Shortness of breath R06.02 and Colon cancer screening Z12.11 [facility], [address] [place] [address] 11/29/2024 Lubna Perez [facility], [facility] [address] [facility] [address] [place] [address] 12/22/2024 Astrid Thomas [facility], [address] [place] [address] 12/25/2024 Astrid Thomas Assessments Encounter Date Diagnosis (ICD Code) Assessment Notes Treatment Notes Treatment Clinical Notes Section Notes 12/22/2024 Burping (ICD-10 - R14.2) 12/22/2024 Chronic throat clearing (ICD-10 - R68.89) Pleasant 74-year-old male who reports intermittent throat clearing occurring daily. He has had ongoing sinus drainage for the last 6 years despite Jeannine, montelukast, and allergy shots. Omeprazole 40 mg for the last 6 months without significant relief. Differentials include uncontrolled GERD, secondary to postnasal drip/pulmonary etiology, esophagitis, HH, and others. 12/22/2024 Shortness of breath (ICD-10 - R06.02) Ongoing shortness of breath for the last 7 to 8 years, today's vitals include 95% oxygen saturation and 73 heart rate 12/22/2024 Colon cancer screening (ICD-10 - Z12.11) He reports a colonoscopy in 2019 that was normal. He denies current alarm features as well as family history of colon cancer/colon polyps 12/22/2024 Other After my visit with Zaire, I recommended the followin. Continue omeprazole 40 mg daily.2. Add Pepcid 20 mg 1 to 2 tablets at bedtime.3. Reviewed antireflux diet and lifestyle modifications.4. Given ongoing shortness of breath, recommend he follow-up with PCP to determine if additional workup is needed. At this time, recommend UGI for further evaluation. If needed, he may warrant EGD in the future.5. Will request copies of last colonoscopy for provider review and his chart. Zaire verbalized understanding of the plan and recommendations. All questions answered. The patient may call our office for new GI complaints or alarm symptoms as needed. Plan Of Treatment Pending Test Test Name Order Date Xray Upper GI Air Contrast 12/22/2024 Insurance Providers Payer Name Payer Address Payer Phone Subscriber Number Group Number Insured Name Patient Relationship to Insured Coverage Start Date Coverage End Date Medicare E2 [address] [address] [place] [address] [id number] Zaire Arvizu Self - patient is the insured [employer] [address] [address] [place] [address] [phone] [id number] Zaire Arvizu Self - patient is the insured Medical (General) History Medical History History ICD Code GERD Sleep Apnea Hearing Loss BPH hypertension Surgical History Surgery Date(Month/Year) Colonoscopy (Outside Provider) 2019 Vasectomy Tonsillectomy Sinus Surgery Tibia/Fibula Repair
--- OUTSIDE RECORDS SUMMARY | 2025-01-01 08:37 | XMS_ITS | Clinical Summary ---
Author Organization [facility] Address [address] [place] [address] Care Team Providers Care Reading Aide Name Role Phone Justin Huffman MD Primary Care Provider [phone] No, Physician Unavailable Allergies No known active [...] on file Legal Sex Male 5:44 AM MOVING PICTURE OPERATOR Gender Identity Male 06/16/2019 12:52 PM CDT [...] of Treatment Not on file Insurance MEDICARE [facility] MEDICARE SUPPLEMENT INSURANCE MEDICARE [employer] MEDICARE SUPPLEMENT INSURANCE Care Teams Reading Aide Relationship Specialty Start Date End Date Justin Huffman MD PCP - General Internal Medicine 08/22/17 No, Physician 08/22/17
--- OUTSIDE RECORDS SUMMARY | 2025-01-01 08:37 | XMS_ITS | Encounter Summary ---
Author Organization [facility] Address [address] [facility] [place] [address] Care Team Providers Care Primary Clinician Name Role Phone Unavailable Primary Care Provider Unavailabl e Encounter Details Date Type Department Care Team (Late st Contact Info) Description 01/27/2021 Lab Requisition [facility] DermPath Lab [address] [place] [phone] Adarsh Bryant MD [address] [place] [address] Social History Tobacco Use Types Packs/Day Years Used Date Smoking Tobacco: Never Assessed Sex and Gender Information Value Date Recorded Sex Assigned at Not on file Legal Sex Male 5:42 PM DRY PASTE SUPERVISOR Gender Identity Not on file Sexual Orientation Not on file documented as of this encounter Plan of Treatment Not on file documented as of this encounter Procedures Procedure Name Priority Date/Time Associated Diagnosis Comments DERMATOPATHOLOGY Routine 01/26/2021 12:0 0 AM DRY PASTE SUPERVISOR documented in this encounter Results * DERMATOPATHOLOGY (01/26/2021 12:00 AM DRY PASTE SUPERVISOR) Case Report Dermatopathology Report Case: [id number] Authorizing Provider: Adarsh Bryant MD Collected: 01/26/2021 12:00 AM Ordering Location: [facility] DermPath Lab Received: 01/27/2021 12:48 PM Pathologist: Nikita Juarez MD Specimen: Skin, right superior buttock 1 2:24 PM DRY PASTE SUPERVISOR DERMATOPATHOLOGY LABORATORY Final Diagnosis Specimen A. SKIN, right superior buttock: ACROCHORDON (SOFT FIBROMA, SKIN TAG) (L91.8) 1 2:24 PM DRY PASTE SUPERVISOR DERMATOPATHOLOGY LABORATORY at 1424 DRY PASTE SUPERVISOR Clinical History R/O dys nevus. 2:24 PM DRY PASTE SUPERVISOR DERMATOPATHOLOGY LABORATORY Gross Description Specimen A: Received is one formalin filled container labeled with the patient's name and designated right superior buttock. The specimen consists of a shave biopsy measuring 32d12u3pi, bisected. Jar 0. 2:24 PM DRY PASTE SUPERVISOR DERMATOPATHOLOGY LABORATORY Microscopic Description Specimen A. SKIN, right superior buttock: There is a gently folded epidermis surrounding a connective tissue core in which fat and collagen are intermingled. 2:24 PM DRY PASTE SUPERVISOR DERMATOPATHOLOGY LABORATORY Disclaimer An external and internal [...] purposes. Billing Codes Specimen Charges Stain Charges 10579 1 2:24 PM DRY PASTE SUPERVISOR DERMATOPATHOLOGY LABORATORY Embedded Images 2:24 PM DRY PASTE SUPERVISOR DERMATOPATHOLOGY LABORATORY Pathology/Cytolog y TISSUE SPECIMEN FROM SKIN / Unknown 01/26/2021 01/27/2021 12:48 PM DRY PASTE SUPERVISOR Adarsh Bryant MD LAB - PATHOLOGY/CYTOLOGY ORD ERABLES Final Result DERMATOPATHOLOGY LABORATORY [facility] - Department of Dermatology [address] [place] [address], [facility] [phone] documented in this encounter Visit Diagnoses Not on filedocumented in this encounter
--- OUTSIDE RECORDS SUMMARY | 2025-01-01 08:37 | XMS_ITS | Encounter Summary ---
Author Organization [facility] Address [address] [place] [address] Care Team Providers Care It Support Consultant Name Role Phone Unavailable Primary Care Provider Unavailabl e Encounter Details Date Type Department Care Team (Late st Contact Info) Description 05/08/2023 Lab Requisition [facility] - DermPath Lab [address] [place] [id number] Adarsh Bryant MD [address] [place] [address] Social History Tobacco Use Types Packs/Day Years Used Date Smoking Tobacco: Never Assessed Sex and Gender Information Value Date Recorded Sex Assigned at Not on file Legal Sex Male 5:42 PM RAISED PRINTER Gender Identity Not on file Sexual Orientation Not on file documented as of this encounter Plan of Treatment Not on file documented as of this encounter Procedures Procedure Name Priority Date/Time Associated Diagnosis Comments DERMATOPATHOLOGY Routine 05/07/2023 3:33 AM RAISED PRINTER documented in this encounter Results * DERMATOPATHOLOGY (05/07/2023 3:33 AM RAISED PRINTER) Case Report Dermatopathology Report Case: [id number] Authorizing Provider: Adarsh Bryant MD Collected: 05/07/2023 03:33 AM Ordering Location: [facility] Lab Received: 05/08/2023 12:52 PM Pathologist: Laurel Lizarraga MD Specimens: A) - Skin, left mid paraspinal back B) - Skin, left lower lat back 3:01 PM RAISED PRINTER DERMATOPATHOLOGY LABORATORY Final Diagnosis Specimen A. 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 The specimen consists of a shave biopsy measuring [id number] mm. Jar 0. Specimen B: Received is one formalin filled container labeled with the patient's name and designated left lower lat back. The specimen consists of a shave biopsy measuring [id number] mm. Jar 0. 4 3:01 PM [facility] Microscopic Description Specimen A. SKIN, left mid paraspinal back: The epidermis is mildly acanthotic. There is a lichenoid infiltrate with vacuolar changes of basilar keratinocytes and scattered necrotic keratinocytes. Specimen B. SKIN, left lower lat back: The epidermis is mildly acanthotic. There is a lichenoid infiltrate with vacuolar changes of basilar keratinocytes and scattered necrotic keratinocytes. 4 3:01 PM [facility] Disclaimer An external and internal positive and negative controls are appropriate for the histochemical, immunohistochemical and immunofluorescence stain(s) in this case (if any), except where stated explicitly. The performance characteristics of the stain(s) cited in this report were developed and its performance characteristic determined by the Dermatopathology Laboratory at [facility], directed by Dr. Robby Juarez. These tests need not be, and therefore are not, approved by the [place] Food and Drug Administration. The tests are used for clinical purposes. Billing Codes Specimen Charges Stain Charges 87659 55564 1 1 4 3:01 PM [facility] Embedded Images 4 3:01 PM [facility] Pathology/Cytology TISSUE SPECIMEN FROM SKIN / Unknown 05/07/2023 3:33 AM RAISED PRINTER 05/08/2023 12:52 PM [facility] Miscellaneous samples (specimen) TISSUE SPECIMEN FROM SKIN / Unknown 05/07/2023 3:33 AM RAISED PRINTER 05/08/2023 12:52 PM RAISED PRINTER us Adarsh Bryant MD LAB - PATHOLOGY/CYTOLOGY ORD ERABLES Final Result DERMATOPATHOLOGY LABORATORY [facility] - Department of Dermatology [facility] [address] [place] [address], [address] [place] [address], [facility] [phone] documented in this encounter Visit Diagnoses Not on filedocumented in this encounter
--- OUTSIDE RECORDS SUMMARY | 2025-01-01 08:37 | XMS_ITS | Clinical Summary ---
Author Organization [facility] Address [address] [place] [id number] Care Team Providers Care Business Process Specialist Name Role Phone Unavailable Primary Care [...] 06/28/2023 COVID-19 Vaccine (2023-2 5 season) 2024 Influenza Adult (#1) 2024 Meningococcal B Vaccine Aged Out No l onger eligible based on patient's age to complete this topic Meningococcal Vaccine Aged Out No kishan antia eligible based on patient's age to complete this topic RSV Immunizations Under 20 Months Aged Out No longer eligible based on patient's age to complete this topic
== END 2025-01-01 08:26 | disposition home or self-care (01) ==
PROVIDERS: PCP Nurse Practitioner
DX: R68.89 Other general symptoms and signs (principal); R14.2 Eructation
CPT/HCPCS: 74246